=== PATIENT | female | born 1945 | race Caucasian/White ===

== ENCOUNTER → 2018-04-16 10:33 | Outpatient (CLI) | payer MEDICARE, SELFPAY ==
[2018-04-16 12:27] LABS: Anion Gap 11 (5-15); BUN 18 mg/dL (7-18); BUN/Creat Ratio 15.4 RATIO (10-20); Chloride 105 mmol/L (98-107); Creatinine, Serum 1.17 mg/dL (0.55-1.02); EST Glomerular Filtration Rate 48 mL/min (>60); Est Glom Filt Rate - Afr Amer 59 mL/min (>60); Glucose 150 mg/dL (74-106); Potassium 3.7 mmol/L (3.5-5.1); Sodium Level 140 mmol/L (136-145)
[2018-04-16 12:45] LABS: Microalbumin:Creatinine Ratio 8.4 mg/g CRE (<30 mg/g CRE)
== END ==
LOC: MFPLAB 10:35
PROVIDERS: Family Provider Family Medicine; PCP Family Medicine; Visit Provider Family Medicine
DX: E11.9 Type 2 diabetes mellitus without complications (principal)
CPT/HCPCS: 36415; 80048; 82043; 82570

== ENCOUNTER → 2018-10-20 10:12 | Outpatient (CLI) | payer MEDICARE, SELFPAY ==
[2016-11-24 22:39] VITALS: BMI 35.5
[2018-10-20 12:54] LABS: Hemoglobin A1c 7.5 % (4.2-6.3)
[2018-10-20 12:57] LABS: AST(SGOT) 13 U/L (15-37); Alanine Aminotransfer ALT/SGPT 24 U/L (13-56); Albumin, Serum 3.7 g/dL (3.2-5.0); Alkaline Phosphatase 62 U/L (45-117); Anion Gap 7 (5-15); BUN 23 mg/dL (7-18); Bilirubin, Direct 0.13 mg/dL (0.00-0.30); Chloride 102 mmol/L (98-107); Cholesterol 185 mg/dL (200); Creatinine, Serum 1.28 mg/dL (0.55-1.02); EST Glomerular Filtration Rate 44 mL/min (>60); Est Glom Filt Rate - Afr Amer 53 mL/min (>60); Globulin 3.8 g/dL (2.2-4.2); Glucose 155 mg/dL (74-106); High Density Lipoprotein 40 mg/dL; Potassium 4.1 mmol/L (3.5-5.1); Protein, Total 7.5 g/dL (6.4-8.2); Sodium Level 139 mmol/L (136-145); Triglycerides 241 mg/dL; Very Low Density Lipoprotein 48 mg/dL (5-40)
[2018-10-20 13:22] LABS: Microalbumin,Random Urine 8.8 mg/L (NO RANGE EST.); Microalbumin:Creatinine Ratio 5.4 mg/g CRE (<30 mg/g CRE)
== END ==
LOC: MFPLAB 10:14
PROVIDERS: Family Provider Family Medicine; PCP Family Medicine; Visit Provider Family Medicine
DX: E11.9 Type 2 diabetes mellitus without complications (principal); E78.5 Hyperlipidemia, unspecified; I10 Essential (primary) hypertension
CPT/HCPCS: 36415; 80048; 80061; 80076; 82043; 82570; 83036

== ENCOUNTER → 2018-12-25 10:15 | Outpatient (CLI) | payer MEDICARE, SELFPAY ==
--- NOTE | 2018-12-25 10:20 | BI_ITS ---
MAMMOGRAPHY - BILATERAL SCREENING REASON FOR EXAM: Female, 73 years old. Routine annual screening examination. PERTINENT HISTORY: Non-contributory. Remote right stereotactic breast biopsy. TECHNIQUE: Digital bilateral breast juan (3D mammographic acquisition) in the CC and MLO projections. 2-D mediolateral oblique (MLO) and craniocaudad (CC) views of both breasts were obtained. CAD: Full Field Digital Mammography with Computer Added Detection was performed. COMPARISON: Comparison is made with prior examination dated April 26, 2009. FINDINGS: Breast Composition: There are scattered areas of fibroglandular density. There are no dominant masses or suspicious calcifications. Stable appearance of the small bilateral axillary lymph nodes. Stable 6 mm well-defined nodule in the upper lateral portion of the right breast most likely representing a small lymph node. No other significant abnormalities are identified. There has been no significant change since the prior study. BI/SCREENING MAMM (CAD), BILAT IMPRESSION: Stable bilateral screening mammogram. Yearly follow-up mammogram recommended. (A) ASSESSMENT CATEGORY: BIRADS Category 2: Benign. A letter regarding these results will be sent to the patient by the facility within 30 days. Approximately 10% of breast cancers are not detected by mammography. A normal mammogram should not delay biopsy of a clinically suspicious abnormality. [id number] Electronically Signed: Ryan Cifuentes MD at 12:48 EST , Service support ,
== END ==
PROVIDERS: Family Provider Family Medicine; PCP Family Medicine; Referring Provider Family Medicine; Visit Provider Family Medicine
DX: Z12.31 Encounter for screening mammogram for malignant neoplasm of breast (principal)
CPT/HCPCS: 77063; 77067

== ENCOUNTER → 2019-01-15 10:01 | Outpatient (CLI) | payer MEDICARE, SELFPAY ==
[2016-11-24 22:39] VITALS: BMI 35.5
[2019-01-15 12:48] LABS: AST(SGOT) 17 U/L (15-37); Alanine Aminotransfer ALT/SGPT 24 U/L (13-56); Albumin, Serum 3.8 g/dL (3.2-5.0); Alkaline Phosphatase 74 U/L (45-117); Anion Gap 12 (5-15); BUN 25 mg/dL (7-18); BUN/Creat Ratio 17.9 RATIO (10-20); Calcium,Total 9.6 mg/dL (8.5-10.1); Chloride 102 mmol/L (98-107); Cholesterol 181 mg/dL (200); EST Glomerular Filtration Rate 39 mL/min (>60); Est Glom Filt Rate - Afr Amer 48 mL/min (>60); Glucose 176 mg/dL (74-106); High Density Lipoprotein 43 mg/dL; Potassium 3.7 mmol/L (3.5-5.1); Protein, Total 7.8 g/dL (6.4-8.2); Sodium Level 137 mmol/L (136-145); Triglycerides 205 mg/dL; Very Low Density Lipoprotein 41 mg/dL (5-40)
[2019-01-15 12:49] LABS: Hemoglobin A1c 7.7 % (4.2-6.3)
== END ==
LOC: MFPLAB 10:01
PROVIDERS: Nurse Practitioner Family; Family Provider Family Medicine; PCP Family Medicine; Visit Provider Family Medicine
DX: E11.9 Type 2 diabetes mellitus without complications (principal); E78.5 Hyperlipidemia, unspecified
CPT/HCPCS: 36415; 80053; 80061; 83036

== ENCOUNTER → 2019-04-16 10:43 | Outpatient (CLI) | payer MEDICARE, SELFPAY ==
[2016-11-24 22:39] VITALS: BMI 35.5
[2019-04-16 12:36] LABS: Anion Gap 9 (5-15); BUN 25 mg/dL (7-18); BUN/Creat Ratio 17.9 RATIO (10-20); Calcium,Total 9.6 mg/dL (8.5-10.1); Chloride 103 mmol/L (98-107); Cholesterol 195 mg/dL (200); EST Glomerular Filtration Rate 39 mL/min (>60); Est Glom Filt Rate - Afr Amer 47 mL/min (>60); Glucose 167 mg/dL (74-106); High Density Lipoprotein 42 mg/dL; Potassium 4.2 mmol/L (3.5-5.1); Sodium Level 139 mmol/L (136-145); Triglycerides 265 mg/dL; Very Low Density Lipoprotein 53 mg/dL (5-40)
[2019-04-16 12:38] LABS: Hemoglobin A1c 7.9 % (4.2-6.3)
== END ==
LOC: MFPLAB 10:44
PROVIDERS: Family Provider Family Medicine; PCP Family Medicine; Referring Provider Family Medicine; Visit Provider Family Medicine
DX: I10 Essential (primary) hypertension (principal); E11.9 Type 2 diabetes mellitus without complications
CPT/HCPCS: 36415; 80048; 80061; 83036

== ENCOUNTER → 2019-04-24 15:25 | Outpatient (CLI) | payer MEDICARE, SELFPAY ==
[2019-04-24 17:27] LABS: Absolute Lymphocyte Count 2.03 X10^3/ul (0.83-4.51); Absolute Neutrophil Count 3.9 X10^3/uL (2.0-7.7); Basophil# 0.05 X10^3/uL; Basophil% 0.8 % (0-1); Eosinophil# 0.13 X10^3/uL; Hematocrit 38.4 % (37-47); Hemoglobin 12.8 g/dl (12.0-15.0); Lymphocyte # 2.03 X10^3/ul (4.0); Lymphocyte % 30.8 % (19-41); Mean Corp Hgb Conc 33.3 g/gl (32-36); Mean Corpuscular Hgb 28.4 pg (27.0-32.0); Mean Corpuscular Volume 85.3 fL (81-99); Mean Platelet Vol. 12.3 fl (6.2-12.0); Monocyte# 0.46 X10^3/uL; Neutrophil # 3.91 X10^3/uL (2.7-7.7); Neutrophil % 59.2 % (47-70); Platelet Count 262 K/mm3 (150-450); RBC Distribution Width CV 14.1 % (11.6-14.6); RBC Distribution Width SD 44.2 fl (35.1-43.9); White Blood Count 6.6 K/mm3 (4.4-11.0)
[2019-04-24 17:28] LABS: POSITIVE COUNT NO; POSITIVE DIFFERENTIAL NO; POSITIVE MORPHOLOGY NO
[2019-04-24 17:48] LABS: Anion Gap 7 (5-15); BUN 24 mg/dL (7-18); BUN/Creat Ratio 18.9 RATIO (10-20); Calcium,Total 9.5 mg/dL (8.5-10.1); Chloride 103 mmol/L (98-107); Creatinine, Serum 1.27 mg/dL (0.55-1.02); EST Glomerular Filtration Rate 44 mL/min (>60); Est Glom Filt Rate - Afr Amer 53 mL/min (>60); Glucose 126 mg/dL (74-106); Potassium 3.8 mmol/L (3.5-5.1); Sodium Level 137 mmol/L (136-145); Thyroid Stim Hormone (TSH) 1.69 uIU/mL (0.358-3.74)
== END ==
LOC: MFPLAB 15:26
PROVIDERS: Family Provider Family Medicine; PCP Family Medicine; Referring Provider Family Medicine; Visit Provider Family Medicine
DX: R53.83 Other fatigue (principal)
CPT/HCPCS: 36415; 80048; 84443; 85025

== ENCOUNTER 2019-04-27 09:50 | Emergency (ER) | payer MEDICARE, SELFPAY ==
[2019-04-27 09:51] VITALS: BP 163/67; PULSE 68; RESP 19; TEMP 36.3; O2SAT 98; BMI 35.5
[2019-04-27] MEDS: HYDROcodone Bitartrate/Apap 5/325 Tablet PO (10:23)
[2019-04-27] MEDS: Naproxen 500 MG Tablet PO (10:23)
--- NOTE | 2019-04-27 10:25 | RAD_ITS ---
STUDY: X-RAY - RIGHT FOOT CLINICAL: Female, 73 years old. Erythema of the big toe TECHNIQUE: 3 view(s) of the foot. COMPARISON: None. FINDINGS: No fracture or dislocation. The joint spaces are maintained. There is calcaneal enthesopathy. The soft tissue structures are unremarkable. RAD/Foot min 3 Views IMPRESSION: No acute fracture or dislocation. Electronically Signed: Annette Yusuf, at 11:10 EDT Tel , Service support ,
--- NOTE | 2019-04-27 10:33 | ED.DCSUM_ITS ---
- ER Visit Summary Date of Service: 04/27/19 Chief Complaint: [] Right great toe pain this morning History of Present Illness: The patient is a 73 F [] indicates that basically she is been in very good health she woke this morning with pain involving her right great toe the lateral part of the MTP had a small red dot to it she had trouble moving the toe and she comes in for evaluation, she has history of arthritis but no history of gout she had no trauma no fever no cough the rest of her joints are unremarkable Physical Examination: [] Vital signs unremarkable see those reports General, no distress resting comfortably HEENT is generally unremarkable The neck is supple no adenopathy Cardiovascular, regular rate and rhythm Lungs, clear bilateral Abdomen, soft nontender Extremities, no clubbing cyanosis or edema, the right great toe the MTP appears inflamed she cannot really move that toe there is a small red dot to the lateral surface of the right MTP the skin is intact there is some discomfort when you brush the skin there is no signs of active infection cellulitis no signs of any trauma the rest of the toes are unremarkable the foot has a strong dorsalis pedis pulse and the foot is otherwise unremarkable as is the ankle the tib-fib the knee and the rest of her physical exam Neurologic, awake alert answering questions appropriately moving all 4 extremities Test Results: [] Emergency Department Course and Treatment: [] Plan all of the above to the patient I explained the concept of gout arthritis she denies any trauma she has no history of joint infection or skin infections at this time she is treated with nonsteroidals x-rays obtained, explained her the best course of action is keep on the nonsteroidals we discussed walking aids she will try a cane ice elevation the Naprosyn for pain she will follow-up with podiatry in the next few days return for change in symptoms Treatment Plan: [] Disposition: [] Home stable Impression: [] rt MTP pain This note was generated with [employer] dictation software. It may contain incorrect words, spelling, and punctuation that were not noted in review of the chart prior to signing ED Disposition - Plan for ED Patient: Referrals: Rafi Moraes MD [Primary Care Provider] -
--- NOTE | 2019-04-27 10:34 | DCINST.ED_ITS ---
ED Disposition - Plan for ED Patient: Instructions: ED Contusion Lower Ext, ED Arthritis Gout Prescriptions: Hydrocodone Bitart/Apap 5-325 [[place] 5MG-325MG] 1 tab PO Q4H PRN PRN 2 Days #7 tab PRN Reason: Pain Naproxen [Naprosyn] 500 mg PO BID PRN #20 tab Referrals: Rafi Moraes MD [Primary Care Provider] -
--- NOTE | 2019-04-27 10:35 | DCINST.ED_ITS ---
ED Disposition - Plan for ED Patient: Instructions: ED Contusion Lower Ext, ED Arthritis Gout Prescriptions: Hydrocodone Bitart/Apap 5-325 [[place] 5MG-325MG] 1 tab PO Q4H PRN PRN 2 Days #7 tab PRN Reason: Pain Naproxen [Naprosyn] 500 mg PO BID PRN #20 tab Referrals: Rafi Moraes MD [Primary Care Provider] -
--- NOTE | 2019-04-27 10:53 | DCINST.ED_ITS ---
ED Disposition - Plan for ED Patient: Instructions: ED Contusion Lower Ext, ED Arthritis Gout Prescriptions: Hydrocodone Bitart/Apap 5-325 [[place] 5MG-325MG] 1 tab PO Q4H PRN PRN 2 Days #7 tab PRN Reason: Pain Naproxen [Naprosyn] 500 mg PO BID PRN #20 tab Referrals: Rafi Moraes MD [Primary Care Provider] -
--- NOTE | 2019-04-27 10:55 | DCINST.ED_ITS ---
ED Disposition - Plan for ED Patient: Instructions: ED Contusion Lower Ext, ED Arthritis Gout Prescriptions: Hydrocodone Bitart/Apap 5-325 [[place] 5MG-325MG] 1 tab PO Q4H PRN PRN 2 Days #7 tab PRN Reason: Pain Naproxen [Naprosyn] 500 mg PO BID PRN #20 tab Referrals: Rafi Moraes MD [Primary Care Provider] -
[2019-04-27 11:39] VITALS: BP 136/76; PULSE 55; RESP 15
== END 2019-04-27 11:41 | disposition home or self-care (01) ==
PROVIDERS: Emergency Provider Emergency Medicine; Family Provider Family Medicine; PCP Family Medicine
DX: M25.571 Pain in right ankle and joints of right foot (principal)
CPT/HCPCS: 73630; 99283

== ENCOUNTER → 2019-05-01 06:12 | Outpatient (CLI) | payer MEDICARE, SELFPAY ==
[2019-04-27 09:51] VITALS: BMI 35.5
--- NOTE | 2019-05-01 17:16 | STRESSREP ---
Stress Test Report Date: 05-01-19 Procedure: Pharmacologic stress nuclear imaging study Indications: Abnormal ECG; near syncope Consent: Per the patient Procedure: The patient underwent pharmacologic (Regadenoson) evaluation with a peak heart rate of 93 beats per minute (62 %predicted maximal heart rate) and a peak blood pressure of 168/90 mmHg. The baseline ECG demonstrated normal sinus rhythm; nonspecific ST/T wave abnormality. The peak pharmacologic ECG demonstrated no obvious ECG changes. There was an occasional PVC pretest. There was no complaint of chest discomfort during pharmacologic infusion or recovery. The examination was discontinued secondary to completion of protocol. Impression: 1. Pharmacologic (Regadenoson) evaluation 2. Peak pharmacologic ECG with no obvious ECG changes. 3. There was an occasional PVC pretest. 4. Nuclear images pending Myocardial perfusion imaging study: Technique: The patient was injected with 14.6 millicuries of technetium 99m Cardiolite and subsequently rest SPECT Cardiolite nuclear imaging was obtained in the horizontal long, vertical long, and short axis views. The patient underwent pharmacologic (Regadenoson) evaluation with a peak heart rate of 93 beats per minute (62 % percent predicted maximal heart rate) and a peak blood pressure of 168/90 mmHg. The patient was injected with 44.4 millicuries of technetium 99m Cardiolite and subsequently stress SPECT Cardiolite nuclear imaging was obtained in the horizontal long, vertical long, and short axis views. A gated Cardiolite study at peak stress was obtained. Interpretation: Rest and stress SPECT Cardiolite nuclear imaging status post realignment, normalization, and attenuation correction demonstrate relative uniform tracer uptake and myocardial perfusion appearing within normal limits. There is end systolic thickening and brightening. The gated Cardiolite study demonstrates myocardial thickening and inward wall motion. The reported LVEF is 79 %. Impression: 1. Rest and stress SPECT Cardiolite nuclear imaging demonstrate relative uniform tracer uptake and myocardial perfusion appearing within normal limits. 2. The gated Cardiolite study reports an LVEF of 79 %. This note was generated with [employer] software. It may contain incorrect words, spelling, and punctuation that were not noted in checking the note before signing.
== END ==
PROVIDERS: Family Provider Family Medicine; PCP Family Medicine; Referring Provider Family Medicine; Visit Provider Family Medicine
DX: R94.31 Abnormal electrocardiogram [ECG] [EKG] (principal)
CPT/HCPCS: 78452; 93017; A9500; A4216; J2785

== ENCOUNTER → 2020-01-29 10:43 | Outpatient (CLI) | payer MEDICARE, SELFPAY ==
[2020-01-29 13:12] LABS: Anion Gap 11 (5-15); BUN 26 mg/dL (7-18); BUN/Creat Ratio 18.7 RATIO (10-20); Calcium,Total 9.2 mg/dL (8.5-10.1); Chloride 103 mmol/L (98-107); Cholesterol 209 mg/dL (200); Creatinine, Serum 1.39 mg/dL (0.55-1.02); EST Glomerular Filtration Rate 39 mL/min (>60); Est Glom Filt Rate - Afr Amer 48 mL/min (>60); Glucose 170 mg/dL (74-106); High Density Lipoprotein 41 mg/dL; Potassium 3.5 mmol/L (3.5-5.1); Sodium Level 139 mmol/L (136-145); Triglycerides 287 mg/dL; Very Low Density Lipoprotein 57 mg/dL (5-40)
== END ==
LOC: MFPLAB 10:45
PROVIDERS: PCP Family Medicine; Visit Provider Family Medicine
DX: I10 Essential (primary) hypertension (principal)
CPT/HCPCS: 36415; 80048; 80061

== ENCOUNTER → 2020-05-06 15:35 | Outpatient (CLI) | payer MEDICARE, SELFPAY ==
--- NOTE | 2020-05-06 15:38 | RAD_ITS ---
STUDY: X-RAY - LEFT SHOULDER REASON FOR EXAM: Female, 74 years old. left shoulder pain TECHNIQUE: 4 view(s) of the shoulder. COMPARISON: None. FINDINGS: There is mild degenerative arthrosis of the glenohumeral articulation. Mild degenerative changes of the acromioclavicular joint. Normal acromion. Normal humeral head and visualized proximal humerus. The soft tissue structures are unremarkable. Normal visualized pulmonary apex. RAD/Shoulder min 2 Views IMPRESSION: Normally located shoulder without fracture, osteolytic or blastic bone lesion. Mild degenerative changes of the glenohumeral joint and AC joint appropriate for age. Electronically Signed: Diamond Emerson MD at 16:13 EDT , Service support ,
== END ==
LOC: MTRAD 15:37
PROVIDERS: PCP Family Medicine; Referring Provider Family Medicine; Visit Provider Family Medicine
DX: M25.512 Pain in left shoulder (principal)
CPT/HCPCS: 73030

== ENCOUNTER → 2020-05-09 09:43 | Outpatient (CLI) | payer MEDICARE, SELFPAY ==
[2020-05-09 12:46] LABS: Anion Gap 10 (5-15); BUN 31 mg/dL (7-18); BUN/Creat Ratio 19.9 RATIO (10-20); Calcium,Total 9.4 mg/dL (8.5-10.1); Chloride 101 mmol/L (98-107); Cholesterol 204 mg/dL (200); Creatinine, Serum 1.56 mg/dL (0.55-1.02); EST Glomerular Filtration Rate 35 mL/min (>60); Est Glom Filt Rate - Afr Amer 42 mL/min (>60); Glucose 194 mg/dL (74-106); High Density Lipoprotein 37 mg/dL; Potassium 3.5 mmol/L (3.5-5.1); Sodium Level 138 mmol/L (136-145); Triglycerides 290 mg/dL
[2020-05-09 12:47] LABS: Very Low Density Lipoprotein 58 mg/dL (5-40)
== END ==
LOC: MFPLAB 09:43
PROVIDERS: PCP Family Medicine; Visit Provider Family Medicine
DX: I10 Essential (primary) hypertension (principal)
CPT/HCPCS: 36415; 80048; 80061

== ENCOUNTER → 2020-05-10 15:02 | Outpatient (CLI) | payer MEDICARE, SELFPAY ==
--- NOTE | 2020-05-10 15:05 | BI_ITS ---
MAMMOGRAPHY - BILATERAL SCREENING REASON FOR EXAM: Female, 74 years old. Routine annual screening examination. PERTINENT HISTORY: Aunt with breast cancer. TECHNIQUE: Digital bilateral breast louie (3D mammographic acquisition) in the CC and MLO projections. 2-D mediolateral oblique (MLO) and craniocaudad (CC) views of both breasts were obtained. CAD: Full Field Digital Mammography with Computer Added Detection was performed. COMPARISON: Comparison is made with prior study dated December 25, 2018. FINDINGS: Breast Composition: There are scattered areas of fibroglandular density. Since prior study, there has been an increase in the calcifications in the deep upper lateral portion of the left breast. The patient will be recalled for additional views including magnification spot views. No other significant abnormalities are identified. BI/SCREEN MAMM (CAD) W/LOUIE BILAT IMPRESSION: Increased focal area of calcification in the deep upper lateral portion of the left breast as described. The patient will be recalled for additional views. Recall Side: Left Breast ASSESSMENT CATEGORY: BIRADS Category 0: Incomplete. Need additional imaging evaluation. A letter regarding these results will be sent to the patient by the facility within 30 days. Approximately 10% of breast cancers are not detected by mammography. A normal mammogram should not delay biopsy of a clinically suspicious abnormality. [id number] Electronically Signed: Ryan Cifuentes, at 8:27 EDT , Service support ,
--- NOTE | 2020-05-10 15:08 | BD_ITS ---
STUDY: DUAL ENERGY X-RAY ABSORPTIOMETRY / DXA REASON FOR EXAM: Female, 74 years old. [employer]AD[employer]ATE- SURGICAL EARLY AT 30 YRS OLD -- HX OF HRT -- TYPE 2 DIABETIC- TAKES MEDS -- HX OF SMOKING- QUIT 37 YRS AGO -- TAKES DIURETIC -- DOES LITTLE EXERCISE -- FAMILY HX OF OSTEO- SISTER -- GONSALO OF 1.5 INCHES TECHNIQUE: Bone Mineral Density (BMD) measurements of lumbar spine and bilateral hips were obtained. COMPARISON: None. FINDINGS: Lumbar Spine (L1-L4): g/cm2 (1.169) / T-score (0.0) / Z-score (1.7) Findings are suggestive of normal bone density with a low fracture risk. Left Femur Total: g/cm2 (1.108) / T-score (0.8) / Z-score (2.5) Left Femoral Neck: g/cm2 (1.145) / T-score (0.8) / Z-score (2.6) Right Femur Total: g/cm2 (1.086) / T-score (0.6) / Z-score (2.3) Right Femoral Neck: g/cm2 (1.144) / T-score (0.8) / Z-score (2.6) BD/Dexa Bone Density Study IMPRESSION: The patient is considered normal as outlined below according to World Luk[employer] Organization (WHO) criteria with a low fracture risk. Reference Information: The T-score is the number of standard deviations above or below the standard which is normal for young adults at their peak bone mineral density. The World Health Organization (WHO) interprets the T-scores as follows: Above -1 Normal bone density Between -1 and -2.5 Osteopenia Equal to / or below -2.5 Osteoporosis As a practical clinical guideline, osteopenia may be graded as follows: Mild -1 through -1.5 Moderate -1.6 through -2.0 Severe -2.1 through -2.4 The Z-score is the number of standard deviations above or below age-matched controls. A Z-score of less than -1.5 would be considered abnormal. References: 1. NIH Osteoporosis and Related Bone Diseases http://www.osteo.org 2. International Society for Clinical Densitometry http://www.iscd.org 3. National Osteoporosis Foundation http://www.nof.org Electronically Signed: Ryan Cifuentes, at 9:23 EDT , Service support ,
== END ==
PROVIDERS: PCP Family Medicine; Referring Provider Family Medicine; Visit Provider Family Medicine
DX: Z00.00 Encounter for general adult medical examination without abnormal findings (principal); Z12.31 Encounter for screening mammogram for malignant neoplasm of breast; Z78.0 Asymptomatic menopausal state
CPT/HCPCS: 77063; 77067; 77080

== ENCOUNTER → 2020-05-13 09:53 | Outpatient (CLI) | payer MEDICARE, SELFPAY ==
--- NOTE | 2020-05-13 09:55 | BI_ITS ---
MAMMOGRAPHY - UNILATERAL DIAGNOSTIC: LEFT BREAST REASON FOR EXAM: Female, 74 years old. Abnormal screening mammogram. PERTINENT HISTORY: Aunt with breast cancer. TECHNIQUE: Digital unilateral breast juan (3D mammographic acquisition) in the CC and MLO projections. 2-D mediolateral oblique (MLO) and craniocaudad (CC) views of both breasts were obtained. CAD: Full Field Digital Mammography with Computer Added Detection was performed. COMPARISON: Comparison is made with prior study dated May 10, 2020. FINDINGS: Breast Composition: The breasts are almost entirely fatty. A cluster microcalcification is once again seen in the deep upper lateral portion of the breast. A biopsy is recommended for further evaluation. No other significant abnormalities are identified. BI/DIAG MAMM W/CAD, UNILAT IMPRESSION: Cluster microcalcification once again seen in the deep upper lateral portion of the left breast as described. A biopsy is recommended for further evaluation. ASSESSMENT CATEGORY: BIRADS Category 4: Suspicious - Biopsy Should Be Considered. A letter regarding these results will be sent to the patient by the facility within 30 days. Approximately 10% of breast cancers are not detected by mammography. A normal mammogram should not delay biopsy of a clinically suspicious abnormality. Electronically Signed: Ryan Cifuentes, at 11:05 EDT , Service support ,
== END ==
LOC: OPBI 09:54
PROVIDERS: PCP Family Medicine; Referring Provider Family Medicine; Visit Provider Family Medicine
DX: R92.8 Other abnormal and inconclusive findings on diagnostic imaging of breast (principal)
CPT/HCPCS: 77065

== ENCOUNTER → 2020-05-19 10:14 | Outpatient (CLI) | payer MEDICARE, SELFPAY ==
[2020-05-18 13:14] VITALS: BMI 35.5
--- NOTE | 2020-05-19 | BRBX_PTH ---
PATIENT: CECY WILLAMS LOC: [facility] U#:[id number] AGE/SX: 80/F ROOM: RE05/19/[address]: Dr. Anitha Velarde MD : 1945 BED: DIS: SPEC #: [id number] RECD: 05/19/20 13:29 STATUS: TOÑO KENNY #: [id number] ROSARIO: 05/19/20 00:[address]: Anitha Velarde DEPT: SURGICAL PATHOLOGY RECD BY: Vel Sanders ENTERED: 05/19/20 13:30 SP TYPE: BREAST BX OTHR DR: Dr. Rafi Moraes MD Tissues: Left breast, NOS Procedures: Surgery Specimen Level IV HEADER OPERATION: Left stereotactic breast biopsy PRE-OP DIAGNOSIS: Cluster microcalcifications deep upper lateral portion left breast TISSUE SUBMITTED: Left breast core tissue ISCHEMIC TIME: 1 minute FIXATION TIME: 7 hours MICROSCOPIC DIAGNOSIS Left breast, cluster microcalcification deep upper lateral portion, stereotactic core biopsy: Hyalinized fibroadenoma with frequent microcalcifications. Negative for atypia or malignancy. See comment. HENOK:fatimah 05/20/20 COMMENT Correlation with clinical, radiologic findings and appropriate follow up are necessary. MICROSCOPIC DESCRIPTION Slides are reviewed. GROSS DESCRIPTION Received is one container labeled with the patient's name and not further designated. The specimen consists of multiple elongated fragments of savage-yellow fibroadipose tissue that in aggregate measure 2.5 x 3 x 0.3 cm. The entire specimen is submitted in two cassettes. / HENOK:fatimah 05/19/20 TC:1 CPT: 01576
--- NOTE | 2020-05-19 11:39 | OP.PCM_ITS ---
Report of Operation Date of Procedure: 05/19/20 Pre-Operative Diagnosis: Left breast microcalcifications Post-Operative Diagnosis: Same Surgery/Procedure Performed:: Stereotactic guided left breast core biopsy Type of Anesthesia:: Local Specimen's removed: Left breast microcalcification Estimated Blood Loss (mL): Minimal Description of Procedure: Procedure: Left stereotactic core biopsy Indications: 74 year-old female with microcalcifications in the deep lateral of the left breast. Risk benefits were discussed the patient and she elected to proceed with stereotactic core biopsy with clip placement Description of procedure: Patient was brought into the mammography suite and laid prone on the stereotactic table. A timeout was completed verifying correct patient, procedure, site, specially, prior to beginning procedure. The left breast was prepped and draped in usual sterile fashion and using local anesthesia was obtained with 1% lidocaine with epi. Patient's left breast was positioned and placed into compression from the lateral aspect. Initial film showed calcifications are in the center of the compression paddle. 15? views were then taken. The calcifications were localized. The left breast was prepped draped in usual sterile fashion. An 8-gauge mammotome was set up according to the digital coordinates. The tract of the mammotome was ane sthetized with local anesthesia and an incision was made with the 11 blade scalpel at the entry site. The mammotome was advanced to the prefire state. Pre-prior films were checked and verified. The mammotome was fired. Post fire films were also checked and verified. Biopsies were taken from 9:00 to 2:00. The specimen was x-rayed and all the calcifications were within the specimen. Mammotome revolve clip was placed at the 12 o'clock position. The mammotome was removed from the breast. An additional films were taken which showed almost all of the calcifications were removed and a clip was in place. Pressure was held for hemostasis. Once hemostasis was assured the wound was dressed with Steri- Strips and OpSite. The patient tolerated the procedure well and was discharged from the mammography suite good condition. complications: none - Complications none
== END ==
LOC: BIRAD 10:15
PROVIDERS: PCP Family Medicine; Referring Provider Surgery; Visit Provider Surgery
DX: R92.0 Mammographic microcalcification found on diagnostic imaging of breast (principal)
CPT/HCPCS: 19081; 88305; J7050; A4648

== ENCOUNTER → 2020-08-17 11:49 | Outpatient (CLI) | payer MEDICARE, SELFPAY ==
[2020-05-18 13:14] VITALS: BMI 35.5
[2020-08-17 16:54] LABS: Anion Gap 9 (5-15); BUN 36 mg/dL (7-18); BUN/Creat Ratio 21.1 RATIO (10-20); Calcium,Total 9.7 mg/dL (8.5-10.1); Chloride 101 mmol/L (98-107); Cholesterol 247 mg/dL (200); Creatinine, Serum 1.71 mg/dL (0.55-1.02); EST Glomerular Filtration Rate 31 mL/min (>60); Est Glom Filt Rate - Afr Amer 38 mL/min (>60); Glucose 182 mg/dL (74-106); High Density Lipoprotein 38 mg/dL; Potassium 3.6 mmol/L (3.5-5.1); Sodium Level 136 mmol/L (136-145); Triglycerides 332 mg/dL; Very Low Density Lipoprotein 66 mg/dL (5-40)
[2020-08-17 18:25] LABS: Hemoglobin A1c 7.9 % (3.8-5.6)
== END ==
LOC: MFPLAB 11:51
PROVIDERS: PCP Family Medicine; Referring Provider Family Medicine; Visit Provider Family Medicine
DX: N28.9 Disorder of kidney and ureter, unspecified (principal); I10 Essential (primary) hypertension; E11.9 Type 2 diabetes mellitus without complications
CPT/HCPCS: 36415; 80048; 80061; 83036

== ENCOUNTER → 2020-12-06 16:31 | Outpatient (CLI) | payer MEDICARE, SELFPAY ==
[2020-05-18 13:14] VITALS: BMI 35.5
== END ==
PROVIDERS: PCP Family Medicine; Visit Provider Family Medicine
DX: N39.0 Urinary tract infection, site not specified (principal)
CPT/HCPCS: 87086; 87088

== ENCOUNTER → 2021-02-15 11:54 | Outpatient (CLI) | payer MEDICARE, SELFPAY ==
[2020-05-18 13:14] VITALS: BMI 35.5
[2021-02-15 15:43] LABS: Anion Gap 9 (5-15); BUN 35 mg/dL (7-18); BUN/Creat Ratio 21.9 RATIO (10-20); Calcium,Total 9.4 mg/dL (8.5-10.1); Chloride 103 mmol/L (98-107); Cholesterol 163 mg/dL (200); EST Glomerular Filtration Rate 33 mL/min (>60); Est Glom Filt Rate - Afr Amer 40 mL/min (>60); Glucose 164 mg/dL (74-106); High Density Lipoprotein 39 mg/dL; Potassium 3.6 mmol/L (3.5-5.1); Sodium Level 138 mmol/L (136-145); Triglycerides 242 mg/dL; Very Low Density Lipoprotein 48 mg/dL (5-40)
[2021-02-15 15:48] LABS: Microalbumin,Random Urine 9.4 mg/L (NO RANGE EST.); Microalbumin:Creatinine Ratio 7.4 mg/g CRE (<30 mg/g CRE)
[2021-02-15 16:18] LABS: Hepatitis C Antibody Non-Reactive (Nonreactive)
== END ==
LOC: MFPLAB 11:55
PROVIDERS: PCP Family Medicine; Referring Provider Family Medicine; Visit Provider Family Medicine
DX: E11.9 Type 2 diabetes mellitus without complications (principal); Z53.20 Procedure and treatment not carried out because of patient's decision for unspecified reasons
CPT/HCPCS: 36415; 80048; 80061; 82043; 82570; 86803

== ENCOUNTER → 2021-08-17 09:51 | Outpatient (CLI) | payer MEDICARE, SELFPAY ==
[2021-08-17 12:44] LABS: Anion Gap 10 (5-15); BUN 28 mg/dL (7-18); BUN/Creat Ratio 19.2 RATIO (10-20); Calcium,Total 9.4 mg/dL (8.5-10.1); Chloride 102 mmol/L (98-107); Cholesterol 195 mg/dL (200); Creatinine, Serum 1.46 mg/dL (0.55-1.02); EST Glomerular Filtration Rate 37 mL/min (>60); Est Glom Filt Rate - Afr Amer 45 mL/min (>60); Glucose 181 mg/dL (74-106); High Density Lipoprotein 40 mg/dL; Potassium 3.4 mmol/L (3.5-5.1); Sodium Level 136 mmol/L (136-145); Triglycerides 297 mg/dL; Very Low Density Lipoprotein 59 mg/dL (5-40)
== END ==
LOC: MFPLAB 09:57
PROVIDERS: PCP Family Medicine; Referring Provider Family Medicine; Visit Provider Family Medicine
DX: E11.9 Type 2 diabetes mellitus without complications (principal)
CPT/HCPCS: 36415; 80048; 80061

== ENCOUNTER → 2021-11-16 10:40 | Outpatient (CLI) | payer MEDICARE, SELFPAY ==
[2021-11-16 12:47] LABS: Anion Gap 9 (5-15); BUN 36 mg/dL (7-18); BUN/Creat Ratio 23.2 RATIO (10-20); Calcium,Total 9.8 mg/dL (8.5-10.1); Chloride 103 mmol/L (98-107); Cholesterol 284 mg/dL (200); Creatinine, Serum 1.55 mg/dL (0.55-1.02); EST Glomerular Filtration Rate 35 mL/min (>60); Est Glom Filt Rate - Afr Amer 42 mL/min (>60); Glucose 186 mg/dL (74-106); High Density Lipoprotein 37 mg/dL; Potassium 3.7 mmol/L (3.5-5.1); Sodium Level 137 mmol/L (136-145); Triglycerides 325 mg/dL; Very Low Density Lipoprotein 65 mg/dL (5-40)
== END ==
LOC: MFPLAB 10:41
PROVIDERS: PCP Family Medicine; Referring Provider Family Medicine; Visit Provider Family Medicine
DX: I10 Essential (primary) hypertension (principal)
CPT/HCPCS: 36415; 80048; 80061

== ENCOUNTER 2022-01-07 11:03 | Emergency (ER) | payer MEDICARE, SELFPAY ==
[2022-01-07 11:04] VITALS: BP 119/71; PULSE 74; RESP 17; TEMP 36.1; O2SAT 96; BMI 33.2
--- NOTE | 2022-01-07 11:21 | EX.ED.DYSGE1 ---
HPI History of Present Illness Chief Complaint: Complaint Informant: patient Onset/Context/Timing Onset: Today Current Severity: Moderate Maximum Severity: Moderate Narrative Narrative: Patient presents with what she believes is a UTI. Patient states she gets recurrent UTIs. This morning she woke up and has pain at the end of her urine stream and urine is bloody. She denies back pain. [facility] Medical History Allergic rhinitis Benign essential HTN DM2 (diabetes mellitus, type 2) Home Medications aspirin 81 mg PO DAILY 11/24/16 [History Last Taken Unknown] atorvastatin 10 mg PO QODAY 11/24/16 [History Last Taken Unknown] metoprolol succinate 100 mg PO DAILY 11/24/16 [History Last Taken Unknown] chlorthalidone 25 mg tablet 25 mg PO DAILY 05/18/20 [History Last Taken Unknown] empagliflozin 10 mg tablet 10 mg PO DAILY 05/18/20 [History Last Taken Unknown] meclizine 12.5 mg tablet 12.5 mg PO TID 05/18/20 [History Last Taken Unknown] nebivolol 20 mg tablet 20 mg PO DAILY 05/18/20 [History Last Taken Unknown] sertraline 100 mg tablet 100 mg PO DAILY 05/18/20 [History Last Taken Unknown] sulfamethoxazole-trimethoprim [Bactrim DS] 1 tab PO BID #6 tab 01/07/22 [Rx Last Taken Unknown] Allergy/AdvReac Type Severity Reaction Status Date / Time lisinopril Allergy Shortness Verified 01/07/22 11:04 of breath nitrofurantoin Allergy Other Verified 01/07/22 11:04 [From Macrodantin] prednisolone Allergy Other Verified 01/07/22 11:04 Family History Father Asthma Sister Asthma Surgical History S/P D&C (status post dilation and curettage) S/P hysterectomy S/P laparoscopic cholecystectomy S/P right breast biopsy Social History Smoking Status: Former smoker alcohol intake: never ROS ROS ED Constitutional Constitutional ED: Denies chills or fever(s) Eyes Eyes: Denies change in vision ENT ENT ED: Denies sore throat Cardiovascular Cardiovascular: Denies chest pain Respiratory/Chest Respiratory/Chest: Denies cough or dyspnea Gastrointestinal Gastrointestinal: Reports abdominal pain; Denies diarrhea, nausea or vomiting Genitourinary Genitourinary ED: Reports dysuria and hematuria Musculoskeletal Musculoskeletal: Denies back pain Integumentary Denies rash Neurologic Neurologic: Denies headache(s) or weakness Allergic/Immunologic Allergic/Immunologic ED: Denies urticaria EXAM Physical Exam Const Vital Signs: 01/07/22 11:04 Temperature 96.9 F L Temperature Source Temporal Pulse Rate 74 Respiratory Rate 17 Blood Pressure 119/71 Blood Pressure Mean 87 Pulse Ox 96 Oxygen Delivery Method Room Air Positive well nourished and well developed General Appearance ED: well developed HEENT Reports moist mucous membranes Eyes PERRL and EOMs intact bilaterally Neck supple Chest Wall inspection of chest normal and palpation of chest normal Resp normal respiratory effort and clear to auscultation bilaterally Cardio regular rate and regular rhythm GI non-tender Auscultation: hypoactive bowel sounds Palpation: soft Back/Spine no CVA tenderness Extremity normal to inspection Neuro oriented x3 Sensorium / Orientation: alert Psych mental status grossly normal Skin no rashes or lesions noted MDM MDM MDM Narrative Medical decision making narrative: Urine sent for UAC and urine culture. Lab Data Attestation: I reviewed the patient's lab results. Labs: Laboratory Results - last 24 hr 01/07/22 11:26 Urine Color Brown Urine Clarity Turbid Urine pH 5.0 Ur Specific [place] 1.015 Urine Protein 100 H Urine Glucose (UA) 1000 H Urine Ketones Negative Urine Occult Blood 250 H Urine Nitrite Negative Urine Bilirubin Negative Urine Urobilinogen Normal Ur Leukocyte Esterase 500 H Urine RBC > 100 SEEN Urine WBC >100 SEEN Ur Squamous Epith Cells 0 SEEN Urine Bacteria 0 SEEN Urine Mucus 0 SEEN Treatment and Re-Evaluation Comments:: At this time urinalysis shows RBCs and WBCs. No bacteria is noted at this time. We did discuss the possibility of a small kidney stone causing her symptoms. At this time she is not having significant pain. We also discussed the possibility of early infection where the bacterial count has not climbed enough to be detected on her UAC. We will treat her with 3 days of Bactrim and monitor the urine culture. If patient's symptoms worsen she will return for repeat evaluation. She is comfortable with this plan. Discharge Plan Triage Chief Complaint: Complaint ED Provider: Abigail Kellogg Dx/Rx/DC Orders Clinical Impression: Cystitis Instructions: ED CYSTITIS Female Adult Prescriptions: New sulfamethoxazole-trimethoprim [Bactrim DS] 800-160 mg tablet 1 tab PO BID Qty: 6 RF: 0 No Action sertraline 100 mg tablet 100 mg PO DAILY RF: 0 Bystolic 20 mg tablet 20 mg PO DAILY RF: 0 chlorthalidone 25 mg tablet 25 mg PO DAILY RF: 0 Jardiance 10 mg tablet 10 mg PO DAILY RF: 0 meclizine 12.5 mg tablet 12.5 mg PO TID RF: 0 atorvastatin 10 MG tablet 10 mg PO QODAY RF: 0 metoprolol succinate 100 MG tablet extended release 24 hr 100 mg PO DAILY RF: 0 aspirin 81 MG tablet,delayed release (DR/EC) 81 mg PO DAILY RF: 0 Primary Care Provider: Rafi Moraes Referrals: Rafi Moraes MD [Primary Care Provider] - 3-5 Days if not improving Disposition Disposition: Home, Self Care
[2022-01-07 11:47] LABS: Bacteria 0 SEEN /hpf (None Seen); Mucous, Urine 0 SEEN /hpf (<or=2+); Squamous Epithelial Cells - UA 0 SEEN /hpf (5-10)
[2022-01-07 11:53] LABS: Color, Urine Brown (Yellow); Glucose, Dipstick 1000 mg/dl (Normal); Ketone-Dipstick Negative (Negative); Leukocyte Esterase-Dipstick 500 /ul (Negative); Nitrite-Dipstick Negative (Negative); Occult Blood-Urine 250 /ul (Negative); Protein-Dipstick 100 mg/dl (Negative); Specific Gravity, Urine 1.015 (1.002-1.030); Urine Bilirubin Dipstick Negative (Negative); Urine Clarity Turbid (Clear); Urine Urobilinogen Normal (Normal)
[2022-01-07 12:00] LABS: Red Blood Cells-Urine > 100 SEEN /hpf (0-5); White Blood Cells >100 SEEN /hpf (0-5)
[2022-01-07] MEDS: Smz/Tmp Ds Tablet 1 TABLET PO (12:13)
[2022-01-07 12:15] VITALS: RESP 16
== END 2022-01-07 12:16 | disposition home or self-care (01) ==
PROVIDERS: Emergency Provider Emergency Medicine; PCP Family Medicine; Visit Provider Emergency Medicine
DX: N30.91 Cystitis, unspecified with hematuria (principal); E11.9 Type 2 diabetes mellitus without complications; I10 Essential (primary) hypertension; Z87.891 Personal history of nicotine dependence; Z79.899 Other long term (current) drug therapy; Z79.84 Long term (current) use of oral hypoglycemic drugs
CPT/HCPCS: 81001; 87086; 87088; 99283

== ENCOUNTER 2022-02-12 10:58 | Outpatient (CLI) | payer MEDICARE, SELFPAY ==
[2022-02-12 12:27] LABS: Anion Gap 8 (5-15); BUN 26 mg/dL (7-18); BUN/Creat Ratio 16.7 RATIO (10-20); Calcium,Total 9.7 mg/dL (8.5-10.1); Chloride 105 mmol/L (98-107); Cholesterol 142 mg/dL (200); Creatinine, Serum 1.56 mg/dL (0.55-1.02); EST Glomerular Filtration Rate 34 mL/min (>60); Est Glom Filt Rate - Afr Amer 42 mL/min (>60); Glucose 148 mg/dL (74-106); High Density Lipoprotein 39 mg/dL; Potassium 3.5 mmol/L (3.5-5.1); Sodium Level 138 mmol/L (136-145); Triglycerides 184 mg/dL; Uric Acid 6.8 mg/dL (2.6-6.0); Very Low Density Lipoprotein 37 mg/dL (5-40)
== END 2022-02-12 23:59 | disposition home or self-care (01) ==
LOC: MFPLAB 10:58
PROVIDERS: PCP Family Medicine; Visit Provider Family Medicine
DX: I10 Essential (primary) hypertension (principal); M10.9 Gout, unspecified
CPT/HCPCS: 36415; 80048; 80061; 84550

== ENCOUNTER 2022-07-21 19:43 | Emergency (ER) | payer MEDICARE, SELFPAY ==
[2022-07-21 19:43] VITALS: BP 178/91; PULSE 73; RESP 17; TEMP 36.1; O2SAT 97; BMI 36.3
--- NOTE | 2022-07-21 20:00 | EDS_ITS ---
HPI HPI - Female History of Present Illness Chief Complaint: Complaint Detail of Chief Complaint: Dysuria that started around 4 PM Informant: patient Narrative Narrative: Patient presents the emergency department with complaint of dysuria that started around 4 PM. Patient states she gets frequent urinary tract infections. Patient states she was seen in the ER about 2 months ago for hematuria but no signs of infection were found at that time. Patient also has a bladder leak problem. She complains of burning at the end of urination to the area of the urethra. She denies any fevers. She is had no vomiting. Prior similar symptoms: Yes PFSH PFS Medical History Allergic rhinitis Benign essential HTN DM2 (diabetes mellitus, type 2) Home Medications aspirin 81 mg tablet,delayed release 81 mg PO DAILY 11/24/16 [History Last Taken Unknown] atorvastatin 10 mg tablet 40 mg PO DAILY 11/24/16 [History Last Taken Unknown] chlorthalidone 25 mg tablet 25 mg PO DAILY 05/18/20 [History Last Taken Unknown] meclizine 12.5 mg tablet 12.5 mg PO TID PRN PRN Dizziness 05/18/20 [History Last Taken Unknown] nebivolol 20 mg tablet (Bystolic) 20 mg PO DAILY 05/18/20 [History Last Taken Unknown] sertraline 100 mg tablet 100 mg PO DAILY 05/18/20 [History Last Taken Unknown] allopurinol 100 mg tablet 100 mg PO DAILY 07/21/22 [History Last Taken Unknown] glimepiride 2 mg tablet 2 mg PO DAILY 07/21/22 [History Last Taken Unknown] losartan 100 mg tablet 100 mg PO DAILY 07/21/22 [History Last Taken Unknown] phenazopyridine 200 mg tablet (Pyridium) 200 mg PO TID #10 tabs 07/21/22 [Rx Last Taken Unknown] sulfamethoxazole 800 mg-trimethoprim 160 mg tablet 1 tab PO BID #6 TABLETS 07/21/22 [Rx Last Taken Unknown] Allergy/AdvReac Type Severity Reaction Status Date / Time lisinopril Allergy Shortness Verified 07/21/22 19:46 of breath nickel Allergy Rash Verified 07/21/22 19:46 nitrofurantoin Allergy Other Verified 07/21/22 19:46 [From Macrodantin] prednisolone Allergy Other Verified 07/21/22 19:46 Family History Father Asthma Sister Asthma Surgical History S/P D&C (status post dilation and curettage) S/P hysterectomy S/P laparoscopic cholecystectomy S/P right breast biopsy Social History Smoking Status: Former smoker alcohol intake: never ROS ROS ED Review of Systems ROS Unobtainable: other Constitutional Constitutional ED: Reports lethargy; Denies chills, fever(s), sweats or weight loss Eyes Eyes: Denies blurry vision, change in vision or diplopia ENT ENT ED: Denies rhinorrhea or sore throat Cardiovascular Cardiovascular: Reports chest pain and racing heartbeat; Denies orthopnea Respiratory/Chest Respiratory/Chest: Reports dyspnea and dyspnea on exertion; Denies cough, orthopnea or sputum Gastrointestinal Gastrointestinal: Denies abdominal pain, diarrhea, nausea or vomiting Genitourinary Genitourinary ED: Reports dysuria and urinary frequency; Denies hematuria Musculoskeletal Musculoskeletal: Denies arthralgias, back pain, myalgias or neck pain Integumentary Denies abscess, Abrasions or rash Neurologic Neurologic: Denies headache(s) or weakness Psychiatric Psychiatric: Denies anxiety, depression or suicidal thoughts Endocrine Endocrinology: Denies polydipsia, polyphagia or polyuria Hematologic/Lymphatic Hematologic/Lymphatic: Denies easy bleeding, easy bruising or lymphadenopathy Allergic/Immunologic Allergic/Immunologic ED: Denies mouth swelling, tongue swelling or urticaria EXAM Physical Exam Const Vital Signs: 07/21/22 19:43 Temperature 96.9 F L Temperature Source Temporal Pulse Rate 73 Respiratory Rate 17 Blood Pressure 178/91 H Blood Pressure Mean 120 Pulse Ox 97 Oxygen Delivery Method Room Air Positive well nourished and well developed General Appearance ED: well developed and NAD HEENT Reports TM's clear and moist mucous membranes normocephalic and atraumatic; Negative for trauma or tenderness Tympanic Membrane ED: Yes TM's clear Eyes PERRL and EOMs intact bilaterally General Eye ED: Negative for pale conjunctiva or scleral icterus Neck no lymphadenopathy, supple and no JVD General: Negative for tenderness Chest Wall inspection of chest normal and palpation of chest normal Chest: Negative for tenderness Resp normal respiratory effort and clear to auscultation bilaterally Effort and Inspection: Negative for respiratory distress or pain with movement Auscultation: Negative for rhonchi, wheezes or diminished lung sounds Cardio regular rate, regular rhythm, S1 normal heart sound, S2 normal heart sound and no murmurs Peripheral Pulses: pulses 2+ throughout GI normal to inspection, nondistended, normoactive bowel sounds, soft to palpation, non-tender, non-distended and no masses Back/Spine no CVA tenderness and no thoracic nor lumbar tenderness Extremity normal to inspection General Extremety ED: Negative for edema General Extremity: Negative for edema Neuro oriented x3, CN's II-XII intact bilaterally, no sensory deficits noted and gait normal Sensorium / Orientation: awake, alert, oriented to person, oriented to place and oriented to time Motor Exam: strength 5/5 throughout and strength abnormal Psych mental status grossly normal Skin no rashes or lesions noted and no wounds MDM MDM MDM Narrative Medical decision making narrative: Urinalysis that showed 500 leukocyte Estrace as well as 10-25 WBCs but no bacteria. Urine culture was sent. Given her symptomatology patient will be treated with Bactrim and Pyridium. She is advised to follow-up with her primary care physician in 3 to 5 days for culture results and repeat evaluation. Patient advised to return if fever, worsening pain, or condition should worsen anyway. She did have a bladder scan performed here as well and she only had 50 cc of urine in her bladder. I do not believe she is having retention. Lab Data Attestation: I reviewed the patient's lab results. Labs: Laboratory Results - last 24 hr 07/21/22 20:56 Urine Color Yellow Urine Clarity Sl. Cloudy Urine pH 5.0 Ur Specific [place] 1.020 Urine Protein 15 H Urine Glucose (UA) Normal Urine Ketones Negative Urine Occult Blood 10 H Urine Nitrite Negative Urine Bilirubin Negative Urine Urobilinogen Normal Ur Leukocyte Esterase 500 H Urine RBC 0-5 SEEN Urine WBC 10-25 SEEN Ur Squamous Epith Cells 0-5 SEEN Urine Bacteria 0 SEEN Urine Mucus 0 SEEN Discharge Plan Triage Chief Complaint: Complaint ED Provider: Ha Krause Dx/Rx/DC Orders Clinical Impression: Acute UTI Instructions: ED Cystitis Female Adult Prescriptions: New phenazopyridine [Pyridium] 200 mg tablet 200 mg PO TID Qty: 10 0RF sulfamethoxazole-trimethoprim [sulfamethoxazole-trimethoprim] 800-160 mg tablet 1 tab PO BID Qty: 6 0RF No Action sertraline 100 mg tablet 100 mg PO DAILY Bystolic 20 mg tablet 20 mg PO DAILY chlorthalidone 25 mg tablet 25 mg PO DAILY meclizine 12.5 mg tablet 12.5 mg PO TID PRN PRN (Reason: Dizziness) atorvastatin 10 MG tablet 40 mg PO DAILY aspirin 81 MG tablet,delayed release (DR/EC) 81 mg PO DAILY allopurinol 100 mg tablet 100 mg PO DAILY Label Comments: TAKE 1 TABLET BY MOUTH ONCE DAILY glimepiride 2 mg tablet 2 mg PO DAILY Label Comments: TAKE 1 TABLET BY MOUTH ONCE DAILY losartan 100 mg tablet 100 mg PO DAILY Label Comments: TAKE 1 TABLET BY MOUTH ONCE DAILY Primary Care Provider: Rafi Moraes Referrals: Rafi Moraes MD [Primary Care Provider] - 3-5 Days Disposition Disposition: Home, Self Care
[2022-07-21 21:01] LABS: Bacteria 0 SEEN /hpf (None Seen); Mucous, Urine 0 SEEN /hpf (<or=2+)
[2022-07-21 21:07] LABS: Color, Urine Yellow (Yellow); Glucose, Dipstick Normal (Normal); Ketone-Dipstick Negative (Negative); Leukocyte Esterase-Dipstick 500 /ul (Negative); Nitrite-Dipstick Negative (Negative); Occult Blood-Urine 10 /ul (Negative); Protein-Dipstick 15 mg/dl (Negative); Urine Bilirubin Dipstick Negative (Negative); Urine Clarity Sl. Cloudy (Clear); Urine Urobilinogen Normal (Normal)
[2022-07-21 21:18] LABS: Red Blood Cells-Urine 0-5 SEEN /hpf (0-5); Squamous Epithelial Cells - UA 0-5 SEEN /hpf (5-10); White Blood Cells 10-25 SEEN /hpf (0-5)
[2022-07-21] MEDS: Smz/Tmp Ds Tablet 1 TABLET PO (21:53)
[2022-07-21] MEDS: Phenazopyridine 95 MG Tablet 190 MG PO (21:53)
== END 2022-07-21 21:54 | disposition home or self-care (01) ==
PROVIDERS: Emergency Provider Emergency Medicine; PCP Family Medicine; Visit Provider Emergency Medicine
DX: N39.0 Urinary tract infection, site not specified (principal); E11.9 Type 2 diabetes mellitus without complications; I10 Essential (primary) hypertension; Z87.891 Personal history of nicotine dependence; Z79.82 Long term (current) use of aspirin
CPT/HCPCS: 81001; 99282

== ENCOUNTER → 2022-07-26 | Outpatient (CLI) | payer MEDICARE, SELFPAY | END | disposition home or self-care (01) | PROVIDERS: PCP Family Medicine; Visit Provider Family Medicine | DX: R30.0 Dysuria (principal) | CPT/HCPCS: 87086 ==

== ENCOUNTER → 2022-08-22 | Outpatient (CLI) | payer MEDICARE, SELFPAY ==
[2022-08-22 13:19] LABS: Anion Gap 9 (5-15); BUN 24 mg/dL (7-18); BUN/Creat Ratio 16.7 RATIO (10-20); Calcium,Total 9.2 mg/dL (8.5-10.1); Chloride 104 mmol/L (98-107); Creatinine, Serum 1.44 mg/dL (0.55-1.02); EST Glomerular Filtration Rate 38 mL/min (>60); Est Glom Filt Rate - Afr Amer 46 mL/min (>60); Glucose 124 mg/dL (74-106); Potassium 3.6 mmol/L (3.5-5.1); Sodium Level 139 mmol/L (136-145)
== END | disposition home or self-care (01) ==
LOC: MFPLAB 10:43
PROVIDERS: PCP Family Medicine; Referring Provider Family Medicine; Visit Provider Family Medicine
DX: E11.9 Type 2 diabetes mellitus without complications (principal)
CPT/HCPCS: 36415; 80048

== ENCOUNTER 2023-01-23 20:15 | Emergency (ER) | payer MEDICARE, SELFPAY ==
[2023-01-23 20:16] VITALS: BP 148/95; PULSE 80; RESP 16; TEMP 36.8; O2SAT 98; BMI 33.6
[2023-01-23 20:29] LABS: Mucous, Urine 0 SEEN /hpf (<or=2+); Red Blood Cells-Urine 0 SEEN /hpf (0-5)
[2023-01-23 20:48] LABS: Color, Urine Yellow (Yellow); Glucose, Dipstick Normal (Normal); Ketone-Dipstick Negative (Negative); Leukocyte Esterase-Dipstick 500 /ul (Negative); Nitrite-Dipstick Negative (Negative); Occult Blood-Urine 10 /ul (Negative); Protein-Dipstick 30 mg/dl (Negative); Urine Bilirubin Dipstick Negative (Negative); Urine Clarity Sl. Cloudy (Clear); Urine Urobilinogen 1 mg/dl (Normal)
[2023-01-23 21:12] LABS: Bacteria RARE /hpf (None Seen); Squamous Epithelial Cells - UA 0-5 SEEN /hpf (5-10); White Blood Cells 25-50 SEEN /hpf (0-5)
--- NOTE | 2023-01-23 21:12 | ED.VIS.FEGU ---
HPI HPI - Female History of Present Illness Chief Complaint: Complaint Narrative Narrative: 77 year-old female past medical history of previous urinary tract infections, presents with pain at the end of urination for the last day. Her symptoms started yesterday. She took an Azo to help with the pain. She knows that she has a bladder infection. She denies any fevers or chills, no nausea or vomiting. No urinary frequency. She does have chronic back pain, but states when she has a kidney infection she usually has burning with urination which she does not currently. She presents to the emergency department because she has the symptoms of her usual bladder infections. [facility] Medical History Allergic rhinitis Benign essential HTN DM2 (diabetes mellitus, type 2) Home Medications aspirin 81 mg tablet,delayed release 81 mg PO DAILY 11/24/16 [History Last Taken Unknown] atorvastatin 10 mg tablet 40 mg PO DAILY 11/24/16 [History Last Taken Unknown] chlorthalidone 25 mg tablet 25 mg PO DAILY 05/18/20 [History Last Taken Unknown] meclizine 12.5 mg tablet 12.5 mg PO TID PRN PRN Dizziness 05/18/20 [History Last Taken Unknown] nebivolol 20 mg tablet (Bystolic) 20 mg PO DAILY 05/18/20 [History Last Taken Unknown] sertraline 100 mg tablet 100 mg PO DAILY 05/18/20 [History Last Taken Unknown] allopurinol 100 mg tablet 100 mg PO DAILY 07/21/22 [History Last Taken Unknown] glimepiride 2 mg tablet 2 mg PO DAILY 07/21/22 [History Last Taken Unknown] losartan 100 mg tablet 100 mg PO DAILY 07/21/22 [History Last Taken Unknown] phenazopyridine 200 mg tablet (Pyridium) 200 mg PO TID #10 tabs 07/21/22 [Rx Last Taken Unknown] sulfamethoxazole 800 mg-trimethoprim 160 mg tablet 1 tab PO BID #6 TABLETS 07/21/22 [Rx Last Taken Unknown] sulfamethoxazole 800 mg-trimethoprim 160 mg tablet (Bactrim DS) 1 tab PO BID #14 tabs 01/23/23 [Rx Last Taken Unknown] Allergy/AdvReac Type Severity Reaction Status Date / Time lisinopril Allergy Shortness Verified 01/23/23 20:18 of breath nickel Allergy Rash Verified 01/23/23 20:18 nitrofurantoin Allergy Other Verified 01/23/23 20:18 [From Macrodantin] prednisolone Allergy Other Verified 01/23/23 20:18 Family History Father Asthma Sister Asthma Surgical History S/P D&C (status post dilation and curettage) S/P hysterectomy S/P laparoscopic cholecystectomy S/P right breast biopsy Social History Smoking Status: Former smoker alcohol intake: never ROS ROS ED ROS Narrative Constitutional: No fever, no chills. HEENT: No sore throat. No neck pain. No loss of vision. No rhinorrhea. Cardiovascular: No chest pain. No palpitations. No pedal edema. Respiratory: No cough, no shortness of breath. Abdominal: No abdominal pain. No nausea. No vomiting. Genitourinary: Positive pain at the end of urination/dysuria. No hematuria. Musculoskeletal: No myalgias. No arthralgias. Neurologic: No headaches. No dizziness. No lightheadedness. Skin: No rash. No change in color. Psychiatric: No depression. No anxiety. EXAM Physical Exam Narrative Exam Narrative: Afebrile. Vital signs noted. HEENT: Normocephalic. Atraumatic. PERRL, EOMI. Neck soft and supple. No point tenderness or step off. Cardiovascular: Regular rate and rhythm. No murmurs, rubs, or gallops appreciated. Respiratory: No tachypnea. Lungs clear to auscultation bilaterally. Gastrointestinal: Abdomen soft, nontender, with normoactive bowel sounds. No rebound or guarding. No CVA tenderness to percussion bilaterally. Neurological: Awake. Alert. Nonfocal, nonlateralizing. Skin: No rash. Normal color. No pallor. Musculoskeletal: No pedal edema. Full range of motion extremities. Const Vital Signs: 01/23/23 20:16 Temperature 98.3 F Temperature Source Temporal Pulse Rate 80 Respiratory Rate 16 Blood Pressure 148/95 H Blood Pressure Mean 112 Pulse Ox 98 Oxygen Delivery Method Room Air MDM MDM MDM Narrative Medical decision making narrative: In the differential diagnosis is cystitis versus pyuria versus nonbacterial urinary tract infection symptoms. Urinalysis was obtained and dipstick is positive for leukocyte Estrace at 500 and occult blood at 10 but negative for nitrates. Microanalysis was obtained. In review, she has 25-50 WBCs with rare bacteria. She was given her first dose of Bactrim here in the emergency department and prescription written to take twice a day for the next 7 days as she states this is what usually works for her urinary tract infections. I feel she can be discharged safely home with follow-up. Return instructions were reviewed. Disposition is discharged home in stable condition. Lab Data Attestation: I reviewed the patient's lab results. Labs: Laboratory Results - last 24 hr 01/23/23 20:25 Urine Color Yellow Urine Clarity Sl. Cloudy Urine pH 6.0 Ur Specific [place] 1.020 Urine Protein 30 H Urine Glucose (UA) Normal Urine Ketones Negative Urine Occult Blood 10 H Urine Nitrite Negative Urine Bilirubin Negative Urine Urobilinogen 1 H Ur Leukocyte Esterase 500 H Urine RBC 0 SEEN Urine WBC 25-50 SEEN Ur Squamous Epith Cells 0-5 SEEN Urine Bacteria RARE Urine Mucus 0 SEEN Discharge Plan Triage Chief Complaint: Complaint ED Provider: Haldey Sanchez Dx/Rx/DC Orders Clinical Impression: UTI (urinary tract infection), Dysuria, DM2 (diabetes mellitus, type 2) Instructions: ED Cystitis Female Adult Prescriptions: New sulfamethoxazole-trimethoprim [Bactrim DS] 800-160 mg tablet 1 tab PO BID Qty: 14 0RF No Action sertraline 100 mg tablet 100 mg PO DAILY Bystolic 20 mg tablet 20 mg PO DAILY chlorthalidone 25 mg tablet 25 mg PO DAILY meclizine 12.5 mg tablet 12.5 mg PO TID PRN PRN (Reason: Dizziness) atorvastatin 10 MG tablet 40 mg PO DAILY aspirin 81 MG tablet,delayed release (DR/EC) 81 mg PO DAILY allopurinol 100 mg tablet 100 mg PO DAILY Label Comments: TAKE 1 TABLET BY MOUTH ONCE DAILY glimepiride 2 mg tablet 2 mg PO DAILY Label Comments: TAKE 1 TABLET BY MOUTH ONCE DAILY losartan 100 mg tablet 100 mg PO DAILY Label Comments: TAKE 1 TABLET BY MOUTH ONCE DAILY phenazopyridine [Pyridium] 200 mg tablet 200 mg PO TID Qty: 10 0RF sulfamethoxazole-trimethoprim [sulfamethoxazole-trimethoprim] 800-160 mg tablet 1 tab PO BID Qty: 6 0RF Primary Care Provider: Rafi Moraes Referrals: Rafi Moraes MD [Primary Care Provider] - 3-5 Days if not improving Disposition Disposition: Home, Self Care
[2023-01-23] MEDS: Smz/Tmp Ds Tablet 1 TABLET PO (21:50)
== END 2023-01-23 21:52 | disposition home or self-care (01) ==
PROVIDERS: Emergency Provider Emergency Medicine; PCP Family Medicine; Visit Provider Emergency Medicine
DX: N39.0 Urinary tract infection, site not specified (principal); E11.9 Type 2 diabetes mellitus without complications; R30.0 Dysuria; Z87.891 Personal history of nicotine dependence
CPT/HCPCS: 81001; 87086; 87088; 87186; 99283

== ENCOUNTER → 2023-02-20 | Outpatient (CLI) | payer MEDICARE, SELFPAY ==
[2023-02-20 16:27] LABS: ALB/GLOB Ratio 0.9 RATIO (0.9-2.4); AST(SGOT) 11 U/L (15-37); Alanine Aminotransfer ALT/SGPT 23 U/L (13-56); Albumin, Serum 3.6 g/dL (3.2-5.0); Alkaline Phosphatase 63 U/L (45-117); Anion Gap 11 (5-15); BUN 27 mg/dL (7-18); BUN/Creat Ratio 19.7 RATIO (10-20); Calcium,Total 9.4 mg/dL (8.5-10.1); Chloride 103 mmol/L (98-107); Cholesterol 156 mg/dL (200); Creatinine, Serum 1.37 mg/dL (0.55-1.02); EST Glomerular Filtration Rate 40 mL/min (>60); Est Glom Filt Rate - Afr Amer 48 mL/min (>60); Glucose 164 mg/dL (74-106); High Density Lipoprotein 41 mg/dL; Protein, Total 7.6 g/dL (6.4-8.2); Sodium Level 138 mmol/L (136-145); Triglycerides 202 mg/dL; Very Low Density Lipoprotein 40 mg/dL (5-40)
== END | disposition home or self-care (01) ==
LOC: MFPLAB 10:37
PROVIDERS: PCP Family Medicine; Referring Provider Family Medicine; Visit Provider Family Medicine
DX: E78.5 Hyperlipidemia, unspecified (principal)
CPT/HCPCS: 36415; 80053; 80061

== ENCOUNTER → 2023-04-26 | Outpatient (CLI) | payer MEDICARE, SELFPAY ==
--- NOTE | 2023-04-26 15:35 | RAD_ITS ---
STUDY: X-RAY - RIGHT KNEE REASON FOR EXAM: Female, 77 years old. Pain and stiffness TECHNIQUE: 4 view(s) of the knee. COMPARISON: None. FINDINGS: Normal visualized distal femur. Normal visualized proximal tibia and fibula. Normal proximal tibiofibular articulation. There is mild degenerative arthrosis of the medial femorotibial compartment. Normal lateral femorotibial compartment. There is moderate degenerative arthrosis of the patellofemoral articulation. The soft tissue structures are unremarkable. RAD/Knee 4 or More Views IMPRESSION: Degenerative arthrosis. Electronically Signed: Cale Pascal MD at 15:48 EDT ,
== END | disposition home or self-care (01) ==
LOC: MTRAD 15:25
PROVIDERS: PCP Family Medicine; Referring Provider Family Medicine; Visit Provider Family Medicine
DX: M25.569 Pain in unspecified knee (principal)
CPT/HCPCS: 73564

== ENCOUNTER → 2023-05-20 | Outpatient (CLI) | payer MEDICARE, SELFPAY ==
[2023-05-20 17:58] LABS: Mucous, Urine 0 SEEN /hpf (<or=2+)
[2023-05-20 18:20] LABS: Color, Urine Yellow (Yellow); Glucose, Dipstick 50 mg/dl (Normal); Ketone-Dipstick 5 mg/dl (Negative); Leukocyte Esterase-Dipstick 500 /ul (Negative); Nitrite-Dipstick Negative (Negative); Occult Blood-Urine 25 /ul (Negative); Protein-Dipstick 30 mg/dl (Negative); Specific Gravity, Urine 1.025 (1.002-1.030); Urine Bilirubin Dipstick Negative (Negative); Urine Urobilinogen Normal (Normal)
[2023-05-20 18:47] LABS: Red Blood Cells-Urine 5-10 SEEN /hpf (0-5); White Blood Cells 50-100 SEEN /hpf (0-5)
[2023-05-20 18:48] LABS: Amorphous Sediment 1+ URATE; Bacteria RARE /hpf (None Seen); Squamous Epithelial Cells - UA 5-10 SEEN /hpf (5-10); Urine Clarity Sl Cldy (Clear)
== END | disposition home or self-care (01) ==
PROVIDERS: PCP Family Medicine; Visit Provider Physician Assistant
DX: R35.0 Frequency of micturition (principal)
CPT/HCPCS: 81001; 87077; 87086; 87088; 87186

== ENCOUNTER 2023-07-03 17:04 | Emergency (ER) | payer MEDICARE, SELFPAY ==
[2023-07-03 17:05] VITALS: BP 150/73; PULSE 60; RESP 16; TEMP 36.3; O2SAT 96
--- NOTE | 2023-07-03 17:39 | EDS_ITS ---
HPI HPI - Fall History of Present Illness Chief Complaint: Fall Detail of Chief Complaint: Fall Informant: patient Narrative Narrative: Patient presents to the emergency department complaining of a fall. She was [employer] a [employer] when her foot caught on the edge of concrete on a wheelchair ramp and she fell onto the ramp itself onto her left side. She does not think she hit her head. There is no loss of consciousness. She denies neck pain out of the ordinary. Complains of pain mostly underneath her left arm and ribs. She complains of some pain in her left wrist. Patient complains of some mild skin abrasion to left knee. She denies shortness of breath. She denies abdominal pain. She denies back pain. She has been ambulatory since the fall. [facility] Medical History (Updated 07/03/23 @ 19:[address] Ha Krause, ) Allergic rhinitis Arthritis Benign essential HTN Chronic neck and back pain Diarrhea Difficulty balancing when standing DM2 (diabetes mellitus, type 2) Hemorrhoids Incontinence Knee pain Shoulder pain Home Medications aspirin 81 mg tablet,delayed release 81 mg PO DAILY 11/24/16 [History Last Taken Unknown] atorvastatin 10 mg tablet 40 mg PO DAILY 11/24/16 [History Last Taken Unknown] chlorthalidone 25 mg tablet 25 mg PO DAILY 05/18/20 [History Last Taken Unknown] nebivolol 20 mg tablet (Bystolic) 20 mg PO DAILY 05/18/20 [History Last Taken Unknown] sertraline 100 mg tablet 100 mg PO DAILY 05/18/20 [History Last Taken Unknown] amlodipine 5 mg tablet 5 mg PO DAILY 05/20/23 [History Last Taken Unknown] metformin 1,000 mg tablet 1,000 mg PO BID 05/20/23 [History Last Taken Unknown] oxycodone-acetaminophen 5 mg-325 mg tablet (Percocet) 1 tab PO Q8H PRN pain 3 days #10 tabs 07/03/23 [Rx Last Taken Unknown] Allergy/AdvReac Type Severity Reaction Status Date / Time lisinopril Allergy Shortness Verified 07/03/23 17:07 of breath nickel Allergy Rash Verified 07/03/23 17:07 nitrofurantoin Allergy Other Verified 07/03/23 17:07 [From Macrodantin] prednisolone Allergy Other Verified 07/03/23 17:07 Family History Father Asthma Sister Asthma Surgical History S/P D&C (status post dilation and curettage) S/P hysterectomy S/P laparoscopic cholecystectomy S/P right breast biopsy Social History Smoking Status: Former smoker alcohol intake: never ROS ROS ED Review of Systems ROS Unobtainable: other Constitutional Constitutional ED: Reports lethargy; Denies chills, fever(s), sweats or weight loss Eyes Eyes: Denies blurry vision, change in vision or diplopia ENT ENT ED: Denies rhinorrhea or sore throat Cardiovascular Cardiovascular: Reports chest pain; Denies orthopnea or racing heartbeat Respiratory/Chest Respiratory/Chest: Denies cough, dyspnea, dyspnea on exertion, orthopnea or sputum Gastrointestinal Gastrointestinal: Denies abdominal pain, diarrhea, nausea or vomiting Genitourinary Genitourinary ED: Denies dysuria, hematuria or urinary frequency Musculoskeletal Musculoskeletal: Reports other Details: Left wrist pain ; Denies arthralgias, back pain, myalgias or neck pain Integumentary Denies abscess, Abrasions or rash Neurologic Neurologic: Denies headache(s) or weakness Psychiatric Psychiatric: Denies anxiety, depression or suicidal thoughts Endocrine Endocrinology: Denies polydipsia, polyphagia or polyuria Hematologic/Lymphatic Hematologic/Lymphatic: Denies easy bleeding, easy bruising or lymphadenopathy Allergic/Immunologic Allergic/Immunologic ED: Denies mouth swelling, tongue swelling or urticaria EXAM Physical Exam Const Vital Signs: 07/03/23 17:05 07/03/23 17:59 Temperature 97.4 F L Temperature Source Temporal Pulse Rate 60 Respiratory Rate 16 Respiratory Effort Normal Non-Labored Respiratory Depth Normal Respiratory Pattern Normal Blood Pressure 150/73 H Blood Pressure Mean 98 Pulse Ox 96 Oxygen Delivery Method Room Air Room Air Positive well nourished and well developed General Appearance ED: well developed and NAD HEENT Reports TM's clear and moist mucous membranes normocephalic and atraumatic; Negative for trauma or tenderness Tympanic Membrane ED: Yes TM's clear Eyes PERRL and EOMs intact bilaterally General Eye ED: Negative for pale conjunctiva or scleral icterus Neck no lymphadenopathy, supple and no JVD General: Negative for tenderness Chest Wall palpation of chest normal Chest Narrative: Tenderness to left ribs in the midaxillary line near the axilla. No ecchymosis or bruising noted. There is no subcu emphysema. Chest: Negative for tenderness Resp normal respiratory effort and clear to auscultation bilaterally Effort and Inspection: Negative for respiratory distress or pain with movement Auscultation: Negative for rhonchi, wheezes or diminished lung sounds Cardio regular rate, regular rhythm, S1 normal heart sound, S2 normal heart sound and no murmurs Peripheral Pulses: pulses 2+ throughout GI normal to inspection, nondistended, normoactive bowel sounds, soft to palpation, non-tender, non-distended and no masses Back/Spine no CVA tenderness and no thoracic nor lumbar tenderness Extremity Extremity Narrative: Left wrist-patient has diffuse tenderness palpation over the left wrist. Mild soft tissue swelling. No obvious deformity. Neurovascular intact distally. General Extremety ED: Negative for edema General Extremity: Negative for edema Neuro oriented x3, CN's II-XII intact bilaterally, no sensory deficits noted and gait normal Sensorium / Orientation: awake, alert, oriented to person, oriented to place and oriented to time Motor Exam: strength 5/5 throughout and strength abnormal Psych mental status grossly normal Skin no rashes or lesions noted and no wounds MDM MDM MDM Narrative Medical decision making narrative: Patient presents after a fall with injury to her left chest wall and left wrist. She did not anything for pain. On x-ray she has 3 broken ribs on the left 5 6 and 7. Patient will be given a prescription for Percocet and an incentive spirometer. She is to follow-up with her primary care physician 5 to 7 days. She is to return if increasing shortness of breath, hemoptysis, worsening pain, or condition should worsen anyway. Radiography Diagnostic Testing: Clinical Impression(s) from Imaging Studies Ribs w/Chest X-Ray 07/03/23 18:13 IMPRESSION: Fractures are noted of the left fifth through seventh ribs. Electronically Signed: Fabio Regan DO at 18:55 EDT , Wrist X-Ray 07/03/23 18:13 IMPRESSION: No acute bony injury. Electronically Signed: Fabio Regan DO at 18:51 EDT , Three-view x-rays of left ribs and chest x-ray obtained interpreted by myself as fracture of ribs 5 6 and 7. Radiology in agreement. There is no evidence of pneumothorax. Three-view x-rays of left wrist obtained interpreted by myself as no acute fracture or dislocation. Radiology in agreement. Discharge Plan Triage Chief Complaint: Fall ED Provider: Ha Krause Dx/Rx/DC Orders Clinical Impression: Fracture of rib, Fall, Left wrist sprain Instructions: ED Mechanical Fall, ED Rib Fracture, ED Wrist Sprain Prescriptions: New oxycodone-acetaminophen [Percocet] 5-325 mg tablet 1 tab PO Q8H PRN (Reason: pain) 3 Days Qty: 10 0RF No Action sertraline 100 mg tablet 100 mg PO DAILY Bystolic 20 mg tablet 20 mg PO DAILY chlorthalidone 25 mg tablet 25 mg PO DAILY metformin 1,000 mg tablet 1,000 mg PO BID Patient Comments: TAKE 1 TABLET BY MOUTH TWICE DAILY amlodipine 5 mg tablet 5 mg PO DAILY atorvastatin 10 MG tablet 40 mg PO DAILY aspirin 81 MG tablet,delayed release (DR/EC) 81 mg PO DAILY Primary Care Provider: Rafi Moraes Referrals: Rafi Moraes MD [Primary Care Provider] - 5-7 Days Disposition Disposition: Home, Self Care
[2023-07-03 17:55] VITALS: BMI 31.4
--- NOTE | 2023-07-03 18:13 | RAD_ITS ---
INDICATION: fall EXAMINATION/TECHNIQUE: X-RAY - LEFT XR Wrist 3 VIEWS COMPARISON: FINDINGS: SOFT TISSUES: No soft tissue swelling or gas. No radiopaque foreign body. BONES/JOINTS: No acute fracture or subluxation.. Normal alignment. Preservation of the joint space.. No sclerotic or destructive changes observed. RAD/Wrist min 3 Views IMPRESSION: No acute bony injury. Electronically Signed: Fabio Regan DO at 18:51 EDT ,
--- NOTE | 2023-07-03 18:13 | RAD_ITS ---
INDICATION: fall EXAMINATION/TECHNIQUE: X-RAY - XR Ribs Unilateral W/ PA Chest Min 3 Views COMPARISON: FINDINGS: SOFT TISSUES: No soft tissue swelling or gas. BONES: Fractures are noted of the left fifth through seventh ribs. No sclerotic or destructive changes observed. VISUALIZED LUNGS: Clear. No pneumothorax. RAD/Ribs Uni Min 3V w/PA Chest IMPRESSION: Fractures are noted of the left fifth through seventh ribs. Electronically Signed: Fabio Regan DO at 18:55 EDT ,
== END 2023-07-03 19:49 | disposition home or self-care (01) ==
PROVIDERS: Emergency Provider Emergency Medicine; PCP Family Medicine; Visit Provider Emergency Medicine
DX: S22.42XA Multiple fractures of ribs, left side, initial encounter for closed fracture (principal); E11.9 Type 2 diabetes mellitus without complications; I10 Essential (primary) hypertension; Z87.891 Personal history of nicotine dependence; W10.2XXA Fall (on)(from) incline, initial encounter; S63.92XA Sprain of unspecified part of left wrist and hand, initial encounter; Y92.89 Other specified places as the place of occurrence of the external cause; G89.29 Other chronic pain; Z79.899 Other long term (current) drug therapy; Z79.82 Long term (current) use of aspirin; Z79.84 Long term (current) use of oral hypoglycemic drugs; S80.212A Abrasion, left knee, initial encounter
CPT/HCPCS: 71101; 73110; 99283; A4216

== ENCOUNTER → 2023-08-19 | Outpatient (CLI) | payer MEDICARE, SELFPAY ==
[2023-08-19 16:09] LABS: Anion Gap 10 (5-15); BUN 22 mg/dL (7-18); BUN/Creat Ratio 16.1 RATIO (10-20); Calcium,Total 9.2 mg/dL (8.5-10.1); Chloride 103 mmol/L (98-107); Cholesterol 186 mg/dL (200); Creatinine, Serum 1.37 mg/dL (0.55-1.02); EST Glomerular Filtration Rate 40 mL/min (>60); Est Glom Filt Rate - Afr Amer 48 mL/min (>60); Glucose 162 mg/dL (74-106); High Density Lipoprotein 39 mg/dL; Potassium 3.8 mmol/L (3.5-5.1); Sodium Level 138 mmol/L (136-145); Triglycerides 305 mg/dL; Very Low Density Lipoprotein 61 mg/dL (5-40)
== END | disposition home or self-care (01) ==
LOC: MFPLAB 11:29
PROVIDERS: PCP Family Medicine; Visit Provider Family Medicine
DX: Z00.00 Encounter for general adult medical examination without abnormal findings (principal); I10 Essential (primary) hypertension
CPT/HCPCS: 36415; 80048; 80061

== ENCOUNTER 2023-10-04 18:04 | Emergency (ER) | payer MEDICARE, SELFPAY ==
[2023-10-04 18:05] VITALS: BP 126/78; PULSE 68; RESP 16; TEMP 36.1; O2SAT 95; BMI 32.0
--- NOTE | 2023-10-04 18:25 | ED.VIS.FEGU ---
HPI HPI - Female History of Present Illness Chief Complaint: Complaint Informant: patient Narrative Narrative: Dysuria starting 2 hours ago. No fevers or back pain. No nausea or vomiting. History of UTI with similar presentation last time was this past summer. Allergy to Macrobid. States medication that typically works is Bactrim. She denies any kidney disease. Prior similar symptoms: Yes PFSH PFSH Medical History Allergic rhinitis Arthritis Benign essential HTN Chronic neck and back pain Diarrhea Difficulty balancing when standing DM2 (diabetes mellitus, type 2) Hemorrhoids Incontinence Knee pain Shoulder pain Home Medications aspirin 81 mg tablet,delayed release 81 mg PO DAILY 11/24/16 [History Last Taken Unknown] atorvastatin 10 mg tablet 40 mg PO DAILY 11/24/16 [History Last Taken Unknown] chlorthalidone 25 mg tablet 25 mg PO DAILY 05/18/20 [History Last Taken Unknown] nebivolol 20 mg tablet (Bystolic) 20 mg PO DAILY 05/18/20 [History Last Taken Unknown] sertraline 100 mg tablet 100 mg PO DAILY 05/18/20 [History Last Taken Unknown] amlodipine 5 mg tablet 5 mg PO DAILY 05/20/23 [History Last Taken Unknown] metformin 1,000 mg tablet 1,000 mg PO BID 05/20/23 [History Last Taken Unknown] oxycodone-acetaminophen 5 mg-325 mg tablet (Percocet) 1 tab PO Q8H PRN pain 3 days #10 tabs 07/03/23 [Rx Last Taken Unknown] phenazopyridine 200 mg tablet (Pyridium) 200 mg PO BID PRN PRN Pain #10 tabs 10/04/23 [Rx Last Taken Unknown] sulfamethoxazole 800 mg-trimethoprim 160 mg tablet (Bactrim DS) 1 tab PO BID #14 tabs 10/04/23 [Rx Last Taken Unknown] Allergy/AdvReac Type Severity Reaction Status Date / Time lisinopril Allergy Shortness Verified 10/04/23 18:05 of breath nickel Allergy Rash Verified 10/04/23 18:05 nitrofurantoin Allergy Other Verified 10/04/23 18:05 [From Macrodantin] prednisolone Allergy Other Verified 10/04/23 18:05 Family History Father Asthma Sister Asthma Surgical History S/P D&C (status post dilation and curettage) S/P hysterectomy S/P laparoscopic cholecystectomy S/P right breast biopsy Social History Smoking Status: Former smoker alcohol intake: never ROS ROS ED Constitutional Constitutional ED: Denies chills, fever(s) or sweats Eyes Eyes: Denies change in vision ENT ENT ED: Denies dysphagia or sore throat Cardiovascular Cardiovascular: Denies chest pain, leg edema, palpitations or racing heartbeat Respiratory/Chest Respiratory/Chest: Denies cough, dyspnea or dyspnea on exertion Gastrointestinal Gastrointestinal: Denies abdominal pain, diarrhea, nausea or vomiting Genitourinary Genitourinary ED: Reports dysuria; Denies hematuria or urinary frequency Musculoskeletal Musculoskeletal: Denies back pain, extremity pain or neck pain Integumentary Denies rash or wounds Neurologic Neurologic: Denies headache(s), paresthesias or weakness EXAM Physical Exam Const Vital Signs: 10/04/23 18:05 10/04/23 19:20 Temperature 97 F L Temperature Source Temporal Pulse Rate 68 68 Respiratory Rate 16 16 Blood Pressure 126/78 H 126/78 H Blood Pressure Mean 94 94 Pulse Ox 95 95 Oxygen Delivery Method Room Air Positive well nourished and well developed General Appearance ED: well developed and NAD HEENT Reports moist mucous membranes normocephalic and atraumatic Eyes conjunctivae normal General Eye ED: Yes normal appearance of both eyes Neck no lymphadenopathy and supple General: Negative for tenderness Chest Wall Chest: Negative for tenderness Resp normal respiratory effort and normal air movement Effort and Inspection: symmetric chest movement; Negative for respiratory distress Cardio regular rate, regular rhythm and no murmurs Peripheral Pulses: pulses 2+ throughout GI normal to inspection, nondistended, normoactive bowel sounds and non-tender Palpation: Negative for guarding or rebound tenderness present Back/Spine no CVA tenderness and no thoracic nor lumbar tenderness Extremity normal to inspection General Extremety ED: Negative for edema or tenderness General Extremity: Negative for edema Neuro oriented x3 and no sensory deficits noted Sensorium / Orientation: awake and alert Skin no rashes or lesions noted and no wounds MDM MDM MDM Narrative Medical decision making narrative: Interventions / MDM: Differential diagnosis: UTI, cystitis Diagnosis considered but do not suspect: N/A My EKG interpretation: N/A Imaging independently reviewed and interpreted by myself: N/A External documents reviewed: N/A Test considered but not ordered:N/A ED course: Nontoxic vital signs stable. Urine ordered. Results positive for infection. Started on Bactrim as she has tolerated this well in the past without any CKD history. Pyridium also started. Antibiotics sent to her pharmacy. Outpatient follow-up. All questions were answered. Re-evaluation: stable Disposition discussed with patient/family/significant other: Patient Case discussed with consulting clinician: N/A This note was generated with [employer] dictation software. It may contain incorrect words, spelling, and punctuation that were not noted in checking the note before signing. Lab Data Labs: Laboratory Results - last 24 hr 10/04/23 18:24 Urine Color Yellow Urine Clarity Turbid Urine pH 5.0 Ur Specific [place] 1.030 Urine Protein 100 H Urine Glucose (UA) Normal Urine Ketones 5 H Urine Occult Blood 250 H Urine Nitrite Negative Urine Bilirubin 1 H Urine Urobilinogen 1 H Ur Leukocyte Esterase 500 H Urine RBC 25-50 SEEN Urine WBC >100 SEEN Ur Squamous Epith Cells 0-5 SEEN Ur Renal Epithelial Cell 0-5 SEEN Urine Bacteria 0 SEEN Hyaline Casts 0-5 SEEN Urine Mucus 0 SEEN Discharge Plan Triage Chief Complaint: Complaint ED Provider: Darren Delaney Dx/Rx/DC Orders Clinical Impression: Dysuria, Acute UTI Instructions: UTIs Women Prescriptions: New sulfamethoxazole-trimethoprim [Bactrim DS] 800-160 mg tablet 1 tab PO BID Qty: 14 0RF phenazopyridine [Pyridium] 200 mg tablet 200 mg PO BID PRN PRN (Reason: Pain) Qty: 10 0RF No Action sertraline 100 mg tablet 100 mg PO DAILY Bystolic 20 mg tablet 20 mg PO DAILY chlorthalidone 25 mg tablet 25 mg PO DAILY metformin 1,000 mg tablet 1,000 mg PO BID Patient Comments: TAKE 1 TABLET BY MOUTH TWICE DAILY amlodipine 5 mg tablet 5 mg PO DAILY atorvastatin 10 MG tablet 40 mg PO DAILY aspirin 81 MG tablet,delayed release (DR/EC) 81 mg PO DAILY oxycodone-acetaminophen [Percocet] 5-325 mg tablet 1 tab PO Q8H PRN (Reason: pain) 3 Days Qty: 10 0RF Primary Care Provider: Rafi Moraes Referrals: Rafi Moraes MD [Primary Care Provider] - 1 Week Activity Restrictions/Additional Instructions: Urine positive for infection. Take antibiotic and Pyridium as prescribed. Follow-up with your doctor. Disposition Disposition: Home, Self Care Discharge Date/Time: 10/04/23 19:30
[2023-10-04 18:56] LABS: Bacteria 0 SEEN /hpf (None Seen); Mucous, Urine 0 SEEN /hpf (<or=2+)
[2023-10-04 18:57] LABS: Color, Urine Yellow (Yellow); Glucose, Dipstick Normal (Normal); Ketone-Dipstick 5 mg/dl (Negative); Leukocyte Esterase-Dipstick 500 /ul (Negative); Nitrite-Dipstick Negative (Negative); Occult Blood-Urine 250 /ul (Negative); Protein-Dipstick 100 mg/dl (Negative); Urine Clarity Turbid (Clear); Urine Urobilinogen 1 mg/dl (Normal)
[2023-10-04 19:00] LABS: Urine Bilirubin Dipstick 1 mg/dL (Negative)
[2023-10-04 19:07] LABS: Hyaline Cast 0-5 SEEN /lpf (0-5); Red Blood Cells-Urine 25-50 SEEN /hpf (0-5); Renal Epithelial Cells 0-5 SEEN /hpf (0-5); Squamous Epithelial Cells - UA 0-5 SEEN /hpf (5-10); White Blood Cells >100 SEEN /hpf (0-5)
[2023-10-04] MEDS: Phenazopyridine 95 MG Tablet 190 MG PO (19:15)
[2023-10-04] MEDS: Smz/Tmp Ds Tablet 1 TABLET PO (19:15)
[2023-10-04 19:20] VITALS: BP 126/78; PULSE 68; RESP 16; O2SAT 95
== END 2023-10-04 19:30 | disposition home or self-care (01) ==
PROVIDERS: Emergency Provider Emergency Medicine; PCP Family Medicine; Visit Provider Emergency Medicine
DX: N39.0 Urinary tract infection, site not specified (principal); R30.0 Dysuria; Z87.891 Personal history of nicotine dependence
CPT/HCPCS: 81001; 99283

== ENCOUNTER → 2023-11-12 | Outpatient (CLI) | payer MEDICARE, SELFPAY ==
[2023-11-12 12:46] LABS: Mucous, Urine 0 SEEN /hpf (<or=2+)
[2023-11-12 13:06] LABS: Color, Urine Yellow (Yellow); Glucose, Dipstick Normal (Normal); Ketone-Dipstick Negative (Negative); Leukocyte Esterase-Dipstick 500 /ul (Negative); Nitrite-Dipstick Positive (Negative); Occult Blood-Urine 25 /ul (Negative); Protein-Dipstick 30 mg/dl (Negative); Urine Clarity Cloudy (Clear); Urine Urobilinogen 4 mg/dl (Normal)
[2023-11-12 13:11] LABS: Urine Bilirubin Dipstick 1 mg/dL (Negative)
[2023-11-12 13:30] LABS: Red Blood Cells-Urine 0-5 SEEN /hpf (0-5); Squamous Epithelial Cells - UA 0-5 SEEN /hpf (5-10); White Blood Cells >100 SEEN /hpf (0-5)
[2023-11-12 13:31] LABS: Bacteria 1+ /hpf (None Seen)
== END | disposition home or self-care (01) ==
LOC: LABSPEC 12:13
PROVIDERS: PCP Family Medicine; Referring Provider Physician Assistant; Visit Provider Physician Assistant
DX: R30.0 Dysuria (principal)
CPT/HCPCS: 81001; 87077; 87086; 87088; 87186

== ENCOUNTER → 2023-12-05 | Outpatient (CLI) | payer MEDICARE, SELFPAY ==
[2023-12-05 18:45] LABS: Anion Gap 10 (5-15); BUN 26 mg/dL (7-18); BUN/Creat Ratio 20.5 RATIO (10-20); Calcium,Total 9.1 mg/dL (8.5-10.1); Chloride 104 mmol/L (98-107); Cholesterol 147 mg/dL (200); Creatinine, Serum 1.27 mg/dL (0.55-1.02); EST Glomerular Filtration Rate 43 mL/min (>60); Est Glom Filt Rate - Afr Amer 52 mL/min (>60); Glucose 129 mg/dL (74-106); High Density Lipoprotein 42 mg/dL; Potassium 3.7 mmol/L (3.5-5.1); Sodium Level 138 mmol/L (136-145); Thyroid Stim Hormone (TSH) 1.34 uIU/mL (0.358-3.74); Triglycerides 242 mg/dL; Very Low Density Lipoprotein 48 mg/dL (5-40)
== END | disposition home or self-care (01) ==
LOC: MFPLAB 14:52
PROVIDERS: PCP Family Medicine; Visit Provider Family Medicine
DX: I10 Essential (primary) hypertension (principal); F32.A Depression, unspecified
CPT/HCPCS: 36415; 80048; 80061; 84443

== ENCOUNTER 2023-12-13 21:01 | Emergency (ER) | payer MEDICARE, SELFPAY ==
[2023-12-13 21:02] VITALS: BP 152/75; PULSE 76; RESP 18; TEMP 35.7; O2SAT 95
[2023-12-13 21:05] VITALS: BMI 32.1
--- NOTE | 2023-12-13 21:28 | EX.ED.DYSGE1 ---
HPI History of Present Illness Chief Complaint: Complaint Informant: patient Onset/Context/Timing Onset: Today Context: Gradual Onset Timing: Intermittent Quality: Sharp Location: Urethra Worsened by: Urination Relieved by: Nothing Narrative Narrative: Patient presents with dysuria that began today. Patient states that she has some sharp pain at the end of urination. Patient states she has a history of frequent urinary tract infections and states this feels similar to prior urinary tract infections. Patient denies any fevers or chills. Patient denies any nausea or vomiting. Patient denies any back pain. Prior similar symptoms: Yes (With prior urinary tract infections) [facility] Medical History Allergic rhinitis Arthritis Benign essential HTN Chronic neck and back pain Diarrhea Difficulty balancing when standing DM2 (diabetes mellitus, type 2) Hemorrhoids Incontinence Knee pain Shoulder pain Home Medications aspirin 81 mg tablet,delayed release 81 mg PO DAILY 11/24/16 [History Last Taken Unknown] atorvastatin 10 mg tablet 40 mg PO DAILY 11/24/16 [History Last Taken Unknown] chlorthalidone 25 mg tablet 25 mg PO DAILY 05/18/20 [History Last Taken Unknown] nebivolol 20 mg tablet (Bystolic) 20 mg PO DAILY 05/18/20 [History Last Taken Unknown] sertraline 100 mg tablet 100 mg PO DAILY 05/18/20 [History Last Taken Unknown] amlodipine 5 mg tablet 5 mg PO DAILY 05/20/23 [History Last Taken Unknown] metformin 1,000 mg tablet 1,000 mg PO BID 05/20/23 [History Last Taken Unknown] oxycodone-acetaminophen 5 mg-325 mg tablet (Percocet) 1 tab PO Q8H PRN pain 3 days #10 tabs 07/03/23 [Rx Last Taken Unknown] phenazopyridine 200 mg tablet (Pyridium) 200 mg PO BID PRN PRN Pain #10 tabs 10/04/23 [Rx Last Taken Unknown] sulfamethoxazole 800 mg-trimethoprim 160 mg tablet (Bactrim DS) 1 tab PO BID #14 tabs 10/04/23 [Rx Last Taken Unknown] sulfamethoxazole 800 mg-trimethoprim 160 mg tablet 1 tab PO BID #14 tabs 12/13/23 [Rx Last Taken Unknown] Allergy/AdvReac Type Severity Reaction Status Date / Time lisinopril Allergy Shortness Verified 12/13/23 21:02 of breath nickel Allergy Rash Verified 12/13/23 21:02 nitrofurantoin Allergy Other Verified 12/13/23 21:02 [From Macrodantin] prednisolone Allergy Other Verified 12/13/23 21:02 Family History Father Asthma Sister Asthma Surgical History S/P D&C (status post dilation and curettage) S/P hysterectomy S/P laparoscopic cholecystectomy S/P right breast biopsy Social History household members: children Smoking Status: Former smoker alcohol intake: never ROS ROS ED Constitutional Constitutional ED: Denies chills or fever(s) Eyes Eyes: Denies blurry vision or change in vision ENT ENT ED: Reports rhinorrhea; Denies sore throat Cardiovascular Cardiovascular: Denies chest pain or palpitations Respiratory/Chest Respiratory/Chest: Reports cough; Denies dyspnea Gastrointestinal Gastrointestinal: Denies nausea or vomiting Genitourinary Genitourinary ED: Reports dysuria; Denies hematuria Musculoskeletal Musculoskeletal: Reports neck pain; Denies back pain Integumentary Denies abscess or rash Neurologic Neurologic: Denies headache(s) or weakness Allergic/Immunologic Allergic/Immunologic ED: Denies mouth swelling or urticaria EXAM Physical Exam Const Vital Signs: 12/13/23 21:02 Temperature 96.3 F L Temperature Source Temporal Pulse Rate 76 Respiratory Rate 18 Blood Pressure 152/75 H Blood Pressure Mean 100 Pulse Ox 95 Oxygen Delivery Method Room Air Positive well nourished and well developed General Appearance ED: well developed and NAD HEENT Reports moist mucous membranes Neck supple and no JVD Resp normal respiratory effort and clear to auscultation bilaterally Cardio regular rate and regular rhythm GI non-tender and non-distended Palpation: soft Neuro oriented x3, CN's II-XII intact bilaterally and no sensory deficits noted Sensorium / Orientation: alert Motor Exam: strength 5/5 throughout Psych mental status grossly normal MDM MDM MDM Narrative Medical decision making narrative: Differential diagnosis includes dysuria, urinary tract infection, and hematuria. Urinalysis will be obtained to assess for urinary tract infection and hematuria. Urine culture will be obtained to assess for urinary tract infection. Lab Data Attestation: I reviewed the patient's lab results. Lab results narrative: Urinalysis was reviewed. Leukocyte esterase was 500 with 10-25 white blood cells. Labs: Laboratory Results - last 24 hr 12/13/23 22:13 Urine Color Yellow Urine Clarity Clear Urine pH 5.0 Ur Specific [place] 1.020 Urine Protein 15 H Urine Glucose (UA) Normal Urine Ketones Negative Urine Occult Blood 10 H Urine Nitrite Negative Urine Bilirubin Negative Urine Urobilinogen Normal Ur Leukocyte Esterase 500 H Urine RBC 0 SEEN Urine WBC 10-25 SEEN Ur Squamous Epith Cells 0-5 SEEN Urine Bacteria 0 SEEN Urine Mucus 0 SEEN Treatment and Re-Evaluation :: Patient was advised of her findings. Patient states that Bactrim usually works well for her. Patient was given a dose of Bactrim here. Patient was given a prescription for Bactrim. Patient was instructed to follow-up with her primary care physician in 5 to 7 days for further evaluation. Patient understood and was agreeable with the plan. All questions were answered. Discharge Plan Triage Chief Complaint: Complaint ED Provider: Andrew Garcia Dx/Rx/DC Orders Clinical Impression: Urinary tract infection, DM2 (diabetes mellitus, type 2) Instructions: ED Cystitis Female Adult Prescriptions: Continued sulfamethoxazole-trimethoprim 800-160 mg tablet 1 tab PO BID Qty: 14 0RF No Action sertraline 100 mg tablet 100 mg PO DAILY Bystolic 20 mg tablet 20 mg PO DAILY chlorthalidone 25 mg tablet 25 mg PO DAILY metformin 1,000 mg tablet 1,000 mg PO BID Patient Comments: TAKE 1 TABLET BY MOUTH TWICE DAILY amlodipine 5 mg tablet 5 mg PO DAILY atorvastatin 10 MG tablet 40 mg PO DAILY aspirin 81 MG tablet,delayed release (DR/EC) 81 mg PO DAILY oxycodone-acetaminophen [Percocet] 5-325 mg tablet 1 tab PO Q8H PRN (Reason: pain) 3 Days Qty: 10 0RF sulfamethoxazole-trimethoprim [Bactrim DS] 800-160 mg tablet 1 tab PO BID Qty: 14 0RF phenazopyridine [Pyridium] 200 mg tablet 200 mg PO BID PRN PRN (Reason: Pain) Qty: 10 0RF Primary Care Provider: Rafi Moraes Referrals: Rafi Moraes MD [Primary Care Provider] - 5-7 Days Disposition Disposition: Home, Self Care
[2023-12-13 21:32] VITALS: BMI 32.1
[2023-12-13 22:18] LABS: Bacteria 0 SEEN /hpf (None Seen); Mucous, Urine 0 SEEN /hpf (<or=2+); Red Blood Cells-Urine 0 SEEN /hpf (0-5)
[2023-12-13 22:21] LABS: Color, Urine Yellow (Yellow); Glucose, Dipstick Normal (Normal); Ketone-Dipstick Negative (Negative); Leukocyte Esterase-Dipstick 500 /ul (Negative); Nitrite-Dipstick Negative (Negative); Occult Blood-Urine 10 /ul (Negative); Protein-Dipstick 15 mg/dl (Negative); Urine Bilirubin Dipstick Negative (Negative); Urine Clarity Clear (Clear); Urine Urobilinogen Normal (Normal)
[2023-12-13 22:33] LABS: White Blood Cells 10-25 SEEN /hpf (0-5)
[2023-12-13 22:34] LABS: Squamous Epithelial Cells - UA 0-5 SEEN /hpf (5-10)
[2023-12-13] MEDS: Smz/Tmp Ds Tablet 1 TABLET PO (23:18)
== END 2023-12-13 23:24 | disposition home or self-care (01) ==
PROVIDERS: Emergency Provider Emergency Medicine; PCP Family Medicine; Visit Provider Emergency Medicine
DX: N39.0 Urinary tract infection, site not specified (principal); E11.9 Type 2 diabetes mellitus without complications; Z87.891 Personal history of nicotine dependence
CPT/HCPCS: 81001; 87077; 87086; 87088; 87186; 99282

== ENCOUNTER 2024-01-18 17:35 | Emergency (ER) | payer MEDICARE, SELFPAY ==
[2024-01-18 17:37] VITALS: BP 131/81; PULSE 73; RESP 18; TEMP 36.4; BMI 32.3
[2024-01-18 17:42] VITALS: BP 131/81; PULSE 73; RESP 16; TEMP 36.4
--- NOTE | 2024-01-18 17:46 | EX.ED.DYSGE1 ---
HPI History of Present Illness Chief Complaint: Complaint Detail of Chief Complaint: Discomfort with urination and frequency Onset/Context/Timing Onset: Today Context: Sudden Onset Timing: Intermittent Quality: Pain Location: Urethra Current Severity: Gone Maximum Severity: Severe Worsened by: Urination Relieved by: Not applicable Associated Symptoms Associated Symptoms: None Narrative Narrative: Patient is a 78-year-old woman with recurrent urinary tract infection. Multiple urine cultures positive for E. coli. Sensitive for essentially everything. She denies fever, chills night sweats. Denies nausea or vomiting. She denies flank pain or low back pain. She does complain of pain with urination and frequency. She has no other symptoms. Prior similar symptoms: Yes Recent Illness/Hospitalization: Yes [facility] Medical History Allergic rhinitis Arthritis Benign essential HTN Chronic neck and back pain Diarrhea Difficulty balancing when standing DM2 (diabetes mellitus, type 2) Hemorrhoids Incontinence Knee pain Shoulder pain Home Medications aspirin 81 mg tablet,delayed release 81 mg PO DAILY 11/24/16 [History Last Taken Unknown] atorvastatin 10 mg tablet 40 mg PO DAILY 11/24/16 [History Last Taken Unknown] chlorthalidone 25 mg tablet 25 mg PO DAILY 05/18/20 [History Last Taken Unknown] nebivolol 20 mg tablet (Bystolic) 20 mg PO DAILY 05/18/20 [History Last Taken Unknown] sertraline 100 mg tablet 100 mg PO DAILY 05/18/20 [History Last Taken Unknown] amlodipine 5 mg tablet 5 mg PO DAILY 05/20/23 [History Last Taken Unknown] metformin 1,000 mg tablet 1,000 mg PO BID 05/20/23 [History Last Taken Unknown] oxycodone-acetaminophen 5 mg-325 mg tablet (Percocet) 1 tab PO Q8H PRN pain 3 days #10 tabs 07/03/23 [Rx Last Taken Unknown] phenazopyridine 200 mg tablet (Pyridium) 200 mg PO BID PRN PRN Pain #10 tabs 10/04/23 [Rx Last Taken Unknown] sulfamethoxazole 800 mg-trimethoprim 160 mg tablet (Bactrim DS) 1 tab PO BID #14 tabs 10/04/23 [Rx Last Taken Unknown] sulfamethoxazole 800 mg-trimethoprim 160 mg tablet 1 tab PO BID #14 tabs 12/13/23 [Rx Last Taken Unknown] cephalexin 500 mg capsule 500 mg PO 3XD #21 CAPSULES 01/18/24 [Rx Last Taken Unknown] phenazopyridine 200 mg tablet (Pyridium) 200 mg PO TID #10 tabs 01/18/24 [Rx Last Taken Unknown] Allergy/AdvReac Type Severity Reaction Status Date / Time lisinopril Allergy Shortness Verified 01/18/24 17:37 of breath nickel Allergy Rash Verified 01/18/24 17:37 nitrofurantoin Allergy Other Verified 01/18/24 17:37 [From Macrodantin] prednisolone Allergy Other Verified 01/18/24 17:37 Family History Father Asthma Sister Asthma Surgical History S/P D&C (status post dilation and curettage) S/P hysterectomy S/P laparoscopic cholecystectomy S/P right breast biopsy Social History household members: children Smoking Status: Former smoker alcohol intake: never ROS ROS ED Constitutional Constitutional ED: Denies chills, fever(s), subjective, sweats or weight loss Gastrointestinal Gastrointestinal: Denies abdominal pain, nausea or vomiting Genitourinary Genitourinary ED: Reports dysuria and urinary frequency; Denies hematuria Musculoskeletal Musculoskeletal: Denies arthralgias, back pain, myalgias or neck pain Hematologic/Lymphatic Hematologic/Lymphatic: Reports systems reviewed and no addt'l complaints, except as documented EXAM Physical Exam Const Vital Signs: 01/18/24 17:37 01/18/24 17:42 Temperature 97.5 F L 97.5 F L Temperature Source Temporal Temporal Pulse Rate 73 73 Respiratory Rate 18 16 Blood Pressure 131/81 H 131/81 H Blood Pressure Mean 97 97 Positive well nourished, well developed and obese General Appearance ED: well developed and NAD; Negative for pallor Nutritional Appearance: obese HEENT Reports moist mucous membranes HEENT Narrative: Head atraumatic normocephalic. Ears normal. Nares patent. Eyes PERRL and EOMs intact bilaterally General Eye ED: Negative for pale conjunctiva or scleral icterus Chest Wall inspection of chest normal Cardio regular rate and regular rhythm GI normal to inspection, nondistended, normoactive bowel sounds, non-tender, non-distended and no masses; Negative for hepatosplenomegaly Back/Spine no CVA tenderness Neuro oriented x3, CN's II-XII intact bilaterally and no sensory deficits noted Sensorium / Orientation: alert Psych mental status grossly normal Skin no rashes or lesions noted, no wounds and No skin turgor normal General Skin Exam: Negative for jaundice or pallor MDM MDM MDM Narrative Medical decision making narrative: Patient with urinary symptoms. Will obtain UA. If positive will send culture. Based on prior culture sensitivity we will treat with cephalexin. Because she has renal insufficiency with a GFR 42 will adjust dose of cephalexin to 500 every 8 hours. If urinalysis does not indicate infection we will pursue more testing. Lab Data Attestation: I reviewed the patient's lab results. Lab results narrative: Urine is consistent with infection. Urine culture was sent. Patient. Cephalexin Pyridium. Labs: Laboratory Results - last 24 hr 01/18/24 17:55 Urine Color Yellow Urine Clarity Cloudy Urine pH 5.0 Ur Specific [place] 1.025 Urine Protein 100 H Urine Glucose (UA) Normal Urine Ketones 5 H Urine Occult Blood 150 H Urine Nitrite Negative Urine Bilirubin 1 H Urine Urobilinogen 1 H Ur Leukocyte Esterase 500 H Urine RBC 5-10 SEEN Urine WBC 25-50 SEEN Ur Squamous Epith Cells 0-5 SEEN Urine Bacteria RARE Hyaline Casts 0-5 SEEN Urine Mucus 0 SEEN Discharge Plan Triage Chief Complaint: Complaint ED Provider: Ashu Edmond Dx/Rx/DC Orders Clinical Impression: Acute cystitis Instructions: ED Cystitis Female Adult Prescriptions: New phenazopyridine [Pyridium] 200 mg tablet 200 mg PO TID Qty: 10 0RF cephalexin [cephalexin] 500 mg capsule 500 mg PO 3XD Qty: 21 0RF No Action sertraline 100 mg tablet 100 mg PO DAILY Bystolic 20 mg tablet 20 mg PO DAILY chlorthalidone 25 mg tablet 25 mg PO DAILY metformin 1,000 mg tablet 1,000 mg PO BID Patient Comments: TAKE 1 TABLET BY MOUTH TWICE DAILY amlodipine 5 mg tablet 5 mg PO DAILY atorvastatin 10 MG tablet 40 mg PO DAILY aspirin 81 MG tablet,delayed release (DR/EC) 81 mg PO DAILY sulfamethoxazole-trimethoprim 800-160 mg tablet 1 tab PO BID Qty: 14 0RF oxycodone-acetaminophen [Percocet] 5-325 mg tablet 1 tab PO Q8H PRN (Reason: pain) 3 Days Qty: 10 0RF sulfamethoxazole-trimethoprim [Bactrim DS] 800-160 mg tablet 1 tab PO BID Qty: 14 0RF phenazopyridine [Pyridium] 200 mg tablet 200 mg PO BID PRN PRN (Reason: Pain) Qty: 10 0RF Primary Care Provider: Rafi Moraes Referrals: Rafi Moraes MD [Primary Care Provider] - 3-5 Days Disposition Disposition: Home, Self Care
[2024-01-18 18:04] LABS: Mucous, Urine 0 SEEN /hpf (<or=2+)
[2024-01-18 18:07] LABS: Color, Urine Yellow (Yellow); Glucose, Dipstick Normal (Normal); Ketone-Dipstick 5 mg/dl (Negative); Leukocyte Esterase-Dipstick 500 /ul (Negative); Nitrite-Dipstick Negative (Negative); Occult Blood-Urine 150 /ul (Negative); Protein-Dipstick 100 mg/dl (Negative); Specific Gravity, Urine 1.025 (1.002-1.030); Urine Clarity Cloudy (Clear); Urine Urobilinogen 1 mg/dl (Normal)
[2024-01-18 18:09] LABS: Squamous Epithelial Cells - UA 0-5 SEEN /hpf (5-10); Urine Bilirubin Dipstick 1 mg/dL (Negative)
[2024-01-18 18:11] LABS: Bacteria RARE /hpf (None Seen); Hyaline Cast 0-5 SEEN /lpf (0-5); Red Blood Cells-Urine 5-10 SEEN /hpf (0-5); White Blood Cells 25-50 SEEN /hpf (0-5)
[2024-01-18] MEDS: Cephalexin 250 MG Capsule 500 MG PO (18:27)
[2024-01-18] MEDS: Phenazopyridine 95 MG Tablet 190 MG PO (18:27)
== END 2024-01-18 18:39 | disposition home or self-care (01) ==
PROVIDERS: Emergency Provider Emergency Medicine; PCP Family Medicine; Visit Provider Emergency Medicine
DX: N30.00 Acute cystitis without hematuria (principal); E11.9 Type 2 diabetes mellitus without complications; E66.9 Obesity, unspecified; Z87.891 Personal history of nicotine dependence
CPT/HCPCS: 81001; 87077; 87086; 87088; 87186; 99283

== ENCOUNTER → 2024-02-19 | Outpatient (CLI) | payer MEDICARE, SELFPAY ==
[2024-02-19 12:48] LABS: Anion Gap 11 (5-15); BUN 23 mg/dL (7-18); BUN/Creat Ratio 17.6 RATIO (10-20); Calcium,Total 9.4 mg/dL (8.5-10.1); Chloride 102 mmol/L (98-107); Creatinine, Serum 1.31 mg/dL (0.55-1.02); EST Glomerular Filtration Rate 42 mL/min (>60); Est Glom Filt Rate - Afr Amer 51 mL/min (>60); Glucose 177 mg/dL (74-106); Potassium 3.3 mmol/L (3.5-5.1); Sodium Level 141 mmol/L (136-145)
== END | disposition home or self-care (01) ==
LOC: MFPLAB 10:39
PROVIDERS: PCP Family Medicine; Visit Provider Family Medicine
DX: E78.5 Hyperlipidemia, unspecified (principal)
CPT/HCPCS: 36415; 80048

== ENCOUNTER → 2024-02-24 | Outpatient (CLI) | payer MEDICARE, SELFPAY | END | disposition home or self-care (01) | PROVIDERS: PCP Family Medicine; Visit Provider Physician Assistant | DX: R30.0 Dysuria (principal) ==

== ENCOUNTER 2024-04-19 17:27 | Emergency (ER) | payer MEDICARE, SELFPAY ==
[2024-04-19 17:28] VITALS: BP 169/73; PULSE 72; RESP 16; TEMP 36.6; O2SAT 94; BMI 32.9
[2024-04-19 17:29] VITALS: BP 163/79; PULSE 79; RESP 16; TEMP 36.4; O2SAT 94
[2024-04-19] MEDS: Phenazopyridine 95 MG Tablet 190 MG PO (17:52)
[2024-04-19] MEDS: Cephalexin 250 MG Capsule 500 MG PO (17:52)
[2024-04-19 18:10] LABS: Mucous, Urine 0 SEEN /hpf (<or=2+)
--- NOTE | 2024-04-19 18:17 | EDS_ITS ---
HPI HPI - Female History of Present Illness Chief Complaint: Complaint Informant: patient Narrative Narrative: 78-year-old female presenting with a 1 day history of dysuria and frequency. Patient states she gets frequent urinary tract infections and over the past of years has become more frequent. She states that she plans on visiting with a urologist about this. She has a history of diabetes. Prior urine cultures have shown E. coli though the last 1 in our computer system shows Klebsiella in January. She states that she has done quite well with Keflex in the past. She states penicillins tend to give her yeast infections. She notes the Pyridium tends to help with her discomfort. She denies fever vomiting flank pain. [facility] Medical History Incontinence Chronic neck and back pain Difficulty balancing when standing Knee pain Diarrhea Shoulder pain Hemorrhoids Arthritis DM2 (diabetes mellitus, type 2) Benign essential HTN Allergic rhinitis Home Medications ?Medication ?Instructions ?Recorded ?Last Taken ?Type aspirin 81 mg tablet,delayed 81 mg PO DAILY 11/24/16 Unknown History release chlorthalidone 25 mg tablet 25 mg PO DAILY 05/18/20 Unknown History nebivolol 20 mg tablet (Bystolic) 20 mg PO DAILY 05/18/20 Unknown History sertraline 100 mg tablet 100 mg PO DAILY 05/18/20 Unknown History amlodipine 5 mg tablet 5 mg PO DAILY 05/20/23 Unknown History metformin 1,000 mg tablet 1,000 mg PO BID 05/20/23 Unknown History phenazopyridine 200 mg tablet 200 mg PO TID PRN pain 6 doses #6 02/24/24 Unknown Rx (Pyridium) tabs atorvastatin 40 mg tablet 40 mg PO DAILY 04/19/24 Unknown History brexpiprazole 1 mg tablet (Rexulti) 1 mg PO DAILY 04/19/24 Unknown History cephalexin 500 mg capsule 500 mg PO TID #21 CAPSULES 04/19/24 Unknown Rx phenazopyridine 200 mg tablet 200 mg PO TID #10 tabs 04/19/24 Unknown Rx (Pyridium) Allergy/AdvReac Type Severity Reaction Status Date / Time lisinopril Allergy Shortness Verified 04/19/24 17:27 of breath nickel Allergy Rash Verified 04/19/24 17:27 nitrofurantoin (From Allergy Other Verified 04/19/24 17:27 Macrodantin) prednisolone Allergy Other Verified 04/19/24 17:27 Family History Father Asthma Sister Asthma Surgical History S/P right breast biopsy S/P laparoscopic cholecystectomy S/P hysterectomy S/P D&C (status post dilation and curettage) Social History household members: children Smoking Status: Former smoker alcohol intake: never ROS ROS ED Constitutional Constitutional ED: Denies chills, fever(s) or weight loss Eyes Eyes: Denies change in vision or diplopia ENT ENT ED: Denies ear pain, rhinorrhea or sore throat Cardiovascular Cardiovascular: Denies chest pain, orthopnea, palpitations or racing heartbeat Respiratory/Chest Respiratory/Chest: Denies cough, dyspnea or orthopnea Gastrointestinal Gastrointestinal: Denies abdominal pain, diarrhea, nausea or vomiting Genitourinary Genitourinary ED: Reports dysuria and urinary frequency; Denies hematuria Musculoskeletal Musculoskeletal: Denies arthralgias or myalgias Integumentary Denies abscess or rash Neurologic Neurologic: Denies headache(s) or weakness Psychiatric Psychiatric: Denies anxiety, depression, suicidal ideation or suicidal thoughts Endocrine Endocrinology: Denies polydipsia, polyphagia or polyuria Allergic/Immunologic Allergic/Immunologic ED: Denies mouth swelling, tongue swelling or urticaria EXAM Physical Exam Const Vital Signs: 04/19/24 17:28 04/19/24 17:29 04/19/24 18:20 Temperature 97.9 F 97.6 F L 97.9 F Temperature Source Temporal Temporal Pulse Rate 72 79 72 Respiratory Rate 16 16 16 Blood Pressure 169/73 H 163/79 H 142/71 H Blood Pressure Mean 105 107 94 Pulse Ox 94 94 95 Oxygen Delivery Method Room Air Room Air Positive well nourished and well developed General Appearance ED: well developed HEENT Reports normocephalic, head/scalp atraumatic and moist mucous membranes Eyes PERRL and EOMs intact bilaterally Neck no lymphadenopathy, supple and no JVD Resp normal respiratory effort and clear to auscultation bilaterally Cardio regular rate, regular rhythm and no murmurs GI normal to inspection, nondistended, normoactive bowel sounds and non-tender Palpation: soft Back/Spine no CVA tenderness and normal ROM Extremity normal to inspection General Extremety ED: Negative for edema General Extremity: Negative for edema Neuro oriented x3 and CN's II-XII intact bilaterally Sensorium / Orientation: alert Motor Exam: strength 5/5 throughout Psych mental status grossly normal Mood & Affect: Negative for depressed or tearful Skin no rashes or lesions noted and no wounds MDM MDM MDM Narrative Medical decision making narrative: Urinalysis urine culture will be sent. Patient will be started on Keflex and Pyridium. First doses will be given here in the emergency department as she wishes to fill the prescription at [facility] tomorrow. Patient understands return instructions. She understands to complete the course of the antibiotic. History & Record Review Discussion w/independent historian: Patient Additional record(s) reviewed:: Prior ED visit and Prior labs Lab Data Attestation: I reviewed the patient's lab results. Labs: Laboratory Results - last 24 hr 04/19/24 18:00 Urine Color Yellow Urine Clarity Sl. Cloudy Urine pH 5.0 Ur Specific [place] 1.025 Urine Protein 30 H Urine Glucose (UA) Normal Urine Ketones Negative Urine Occult Blood 25 H Urine Nitrite Negative Urine Bilirubin Negative Urine Urobilinogen 1 H Ur Leukocyte Esterase 500 H Urine RBC 0-5 SEEN Urine WBC 10-25 SEEN Ur Squamous Epith Cells 0-5 SEEN Urine Bacteria 1+ Urine Mucus 0 SEEN Discharge Plan Triage Chief Complaint: Complaint ED Provider: Brayan Bruce Dx/Rx/DC Orders Clinical Impression: Acute cystitis Instructions: ED Cystitis Female Adult Prescriptions: New phenazopyridine [Pyridium] 200 mg tablet 200 mg PO TID Qty: 10 0RF cephalexin 500 mg capsule 500 mg PO TID Qty: 21 0RF No Action sertraline 100 mg tablet 100 mg PO DAILY Bystolic 20 mg tablet 20 mg PO DAILY chlorthalidone 25 mg tablet 25 mg PO DAILY metformin 1,000 mg tablet 1,000 mg PO BID Patient Comments: TAKE 1 TABLET BY MOUTH TWICE DAILY amlodipine 5 mg tablet 5 mg PO DAILY phenazopyridine [Pyridium] 200 mg tablet 200 mg PO TID PRN (Reason: pain) Qty: 6 0RF aspirin 81 MG tablet,delayed release (DR/EC) 81 mg PO DAILY atorvastatin 40 mg tablet 40 mg PO DAILY Rexulti 1 mg tablet 1 mg PO DAILY Primary Care Provider: Rafi Moraes Referrals: Rafi Moraes MD [Primary Care Provider] - Print Language: Qatari Disposition Disposition: Home, Self Care Discharge Date/Time: 04/19/24 18:20
[2024-04-19 18:19] LABS: Color, Urine Yellow (Yellow); Glucose, Dipstick Normal (Normal); Ketone-Dipstick Negative (Negative); Leukocyte Esterase-Dipstick 500 /ul (Negative); Nitrite-Dipstick Negative (Negative); Occult Blood-Urine 25 /ul (Negative); Protein-Dipstick 30 mg/dl (Negative); Specific Gravity, Urine 1.025 (1.002-1.030); Urine Bilirubin Dipstick Negative (Negative); Urine Clarity Sl. Cloudy (Clear); Urine Urobilinogen 1 mg/dl (Normal)
[2024-04-19 18:20] VITALS: BP 142/71; PULSE 72; RESP 16; TEMP 36.6; O2SAT 95
[2024-04-19 18:27] LABS: Bacteria 1+ /hpf (None Seen); Red Blood Cells-Urine 0-5 SEEN /hpf (0-5); Squamous Epithelial Cells - UA 0-5 SEEN /hpf (5-10); White Blood Cells 10-25 SEEN /hpf (0-5)
== END 2024-04-19 18:20 | disposition home or self-care (01) ==
PROVIDERS: Emergency Provider Emergency Medicine; PCP Family Medicine; Visit Provider Emergency Medicine
DX: N30.00 Acute cystitis without hematuria (principal); E11.9 Type 2 diabetes mellitus without complications; Z87.891 Personal history of nicotine dependence
CPT/HCPCS: 81001; 87086; 87088; 99283

== ENCOUNTER → 2024-08-19 | Outpatient (CLI) | payer MEDICARE, SELFPAY ==
[2024-08-19 15:39] LABS: ALB/GLOB Ratio 0.9 RATIO (0.9-2.4); AST(SGOT) 16 U/L (15-37); Alanine Aminotransfer ALT/SGPT 21 U/L (13-56); Albumin, Serum 3.6 g/dL (3.2-5.0); Alkaline Phosphatase 60 U/L (45-117); Anion Gap 11 (5-15); BUN 25 mg/dL (7-18); BUN/Creat Ratio 18.2 RATIO (10-20); Calcium,Total 9.8 mg/dL (8.5-10.1); Chloride 102 mmol/L (98-107); Cholesterol 170 mg/dL (200); Creatinine, Serum 1.37 mg/dL (0.55-1.02); EST Glomerular Filtration Rate 40 mL/min (>60); Est Glom Filt Rate - Afr Amer 48 mL/min (>60); Globulin 4.2 g/dL (2.2-4.2); Glucose 184 mg/dL (74-106); High Density Lipoprotein 43 mg/dL; Potassium 3.6 mmol/L (3.5-5.1); Protein, Total 7.8 g/dL (6.4-8.2); Sodium Level 137 mmol/L (136-145); Triglycerides 253 mg/dL; Very Low Density Lipoprotein 51 mg/dL (5-40)
[2024-08-19 16:13] LABS: Hemoglobin A1c 7.1 % (3.8-5.6)
== END | disposition home or self-care (01) ==
LOC: MFPLAB 11:09
PROVIDERS: PCP Family Medicine; Visit Provider Family Medicine
DX: E11.9 Type 2 diabetes mellitus without complications (principal)
CPT/HCPCS: 36415; 80053; 80061; 83036

== ENCOUNTER → 2024-11-18 | Outpatient (CLI) | payer MEDICARE, SELFPAY ==
[2024-11-18 12:47] LABS: ALB/GLOB Ratio 0.8 RATIO (0.9-2.4); AST(SGOT) 11 U/L (15-37); Alanine Aminotransfer ALT/SGPT 20 U/L (13-56); Albumin, Serum 3.3 g/dL (3.2-5.0); Alkaline Phosphatase 59 U/L (45-117); Anion Gap 9 (5-15); BUN 20 mg/dL (7-18); BUN/Creat Ratio 15.2 RATIO (10-20); Calcium,Total 9.1 mg/dL (8.5-10.1); Chloride 103 mmol/L (98-107); Cholesterol 169 mg/dL (200); Creatinine, Serum 1.32 mg/dL (0.55-1.02); EST Glomerular Filtration Rate 41 mL/min (>60); Est Glom Filt Rate - Afr Amer 50 mL/min (>60); Globulin 4.1 g/dL (2.2-4.2); Glucose 208 mg/dL (74-106); High Density Lipoprotein 46 mg/dL; Potassium 3.7 mmol/L (3.5-5.1); Protein, Total 7.4 g/dL (6.4-8.2); Sodium Level 136 mmol/L (136-145); Triglycerides 270 mg/dL; Very Low Density Lipoprotein 54 mg/dL (5-40)
== END | disposition home or self-care (01) ==
LOC: MFPLAB 10:28
PROVIDERS: PCP Family Medicine; Referring Provider Family Medicine; Visit Provider Family Medicine
DX: E78.5 Hyperlipidemia, unspecified (principal)
CPT/HCPCS: 36415; 80053; 80061

== ENCOUNTER → 2025-02-15 | Outpatient (CLI) | payer MEDICARE, SELFPAY ==
[2025-02-15 18:36] LABS: Uric Acid 8.8 mg/dL (2.6-6.0)
== END | disposition home or self-care (01) ==
LOC: MFPLAB 12:24
PROVIDERS: PCP Family Medicine; Referring Provider Family Medicine; Visit Provider Family Medicine
DX: M10.9 Gout, unspecified (principal)
CPT/HCPCS: 36415; 84550

== ENCOUNTER → 2025-02-25 | Outpatient (CLI) | payer MEDICARE, SELFPAY ==
[2025-02-25 18:36] LABS: Microalbumin:Creatinine Ratio 565.4 mg/g CRE
[2025-02-25 19:05] LABS: Hemoglobin A1c 6.9 % (<=5.6)
[2025-02-25 19:23] LABS: Anion Gap 20 (5-15); BUN 27 mg/dL (4-19); BUN/Creat Ratio 17.5 RATIO (10-20); Calcium,Total 9.2 mg/dL (7.6-11.0); Carbon Dioxide 15.9 mmol/L (21.0-32.0); Chloride 102 mmol/L (98-108); Creatinine, Serum 1.52 mg/dL (0.70-1.20); EST Glomerular Filtration Rate 35 (>60); Glucose 140 mg/dL (70-99); Potassium 3.8 mmol/L (3.3-5.1); Sodium Level 138 mmol/L (133-145)
[2025-02-25 19:58] LABS: Cholesterol 186 mg/dL (<=200); High Density Lipoprotein 45 mg/dL; Low Density Lipoprotein Calc. 91 mg/dL; Triglycerides 250 mg/dL; Very Low Density Lipoprotein 50 mg/dL (5-40); cholesterol:hdl ratio screen 4.16
== END | disposition home or self-care (01) ==
LOC: MFPLAB 15:09
PROVIDERS: PCP Family Medicine; Referring Provider Family Medicine; Visit Provider Family Medicine
DX: Z00.00 Encounter for general adult medical examination without abnormal findings (principal)
CPT/HCPCS: 36415; 80048; 80061; 82043; 82570; 83036

== ENCOUNTER → 2025-06-03 | Outpatient (CLI) | payer MEDICARE, SELFPAY ==
[2025-06-03 12:31] LABS: Hematocrit 39.9 % (37-47); Hemoglobin 13.2 g/dL (12.0-15.0); Mean Corp Hgb Conc 33.1 g/dL (32-36); Mean Corpuscular Volume 86.6 fL (81-99); Mean Platelet Vol. 12.4 fl (6.2-12.0); Platelet Count 301 K/mm3 (150-450); RBC Distribution Width CV 15.2 % (11.6-14.6); RBC Distribution Width SD 48.1 fl (35.1-43.9); Red Blood Count 4.61 M/mm3 (4.2-5.4); White Blood Count 7.6 K/mm3 (4.4-11.0)
[2025-06-03 12:46] LABS: Anion Gap 16 (5-15); BUN 35 mg/dL (4-19); BUN/Creat Ratio 23.4 RATIO (10-20); Calcium,Total 9.2 mg/dL (7.6-11.0); Carbon Dioxide 20.5 mmol/L (21.0-32.0); Chloride 102 mmol/L (98-108); Glucose 184 mg/dL (70-99); Potassium 3.3 mmol/L (3.3-5.1)
--- OUTSIDE RECORDS SUMMARY | 2025-06-03 22:20 | XMS RPT_ITS | CCD ---
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 Rafi Moraes Primary Care Provider [phone] Aleisha, Dr. Mckee Referring Provider ADOLPH Ruiz Attending Provider Aleisha, Dr. Mckee Primary Care Provider Aleisha, Dr. Mckee Referring Provider ADOLPH Joyce Attending Provider Aleisha, Dr. Mckee Primary Care Provider Aleisha, Dr. Mckee Referring Provider ADOLPH Joyce Attending Provider Dr. Rafi Moraes MD Primary Care Provider Aleisha FREED, Dr. Mckee Attending Provider Aleisha FREED, Dr. Mckee Referring Provider Rafi Moraes Attending Unavailable Aleisha, Rafi Primary Care Unavailable Moraes, Rafi Attending Unavailable Moraes, Rafi Referring Unavailable Moraes, Rafi Primary Care Unavailable Moraes, Rafi Referring Unavailable Moraes, Rafi Primary Care Unavailable Moraes, Rafi Attending Unavailable Moraes, Rafi Referring Unavailable Moraes, Rafi Primary Care Unavailable Moraes, Rafi Attending Unavailable Allergies Allergy Classification Reported Allergen(s) Allergy Type Date of Onset Reaction(s) Facility (17 sources) Lisinopril Drug Allergy 2 Shortness of breath [facility] (17 sources) nickel Drug Allergy 2 Rash [facility] (17 sources) Nitrofurantoin Drug Allergy 2 Other [facility] Comment on above: CONFUSED (17 sources) prednisoLONE Drug Allergy 2 Other [facility] Comment on above: CONFUSED AND MEAN (1 source) Lisinopril Drug Allergy 4 [facility] (1 source) nickel Drug Allergy 4 [facility] (1 source) Nitrofurantoin Drug Allergy 4 [facility] (1 source) prednisoLONE Drug Allergy 4 [facility] Medications Current Medications Medication Drug Class(es) Dates Sig (Normalized) Sig (Original) amLODIPine 5 mg oral tablet (11 sources) Dihydropyridine Calcium Channel Citlali Start: 05-20-2023 take 1 tablet by mouth once daily Amlodipine 5 mg tablet Active 5 mg PO DAILY May 20, 2023 12:00am aspirin 81 mg delayed release oral tablet (17 sources) Platelet Aggregation Inhibitor, Nonsteroidal Anti-inflammatory Drug Start: 11-24-2016 take 1 tablet by mouth once daily Aspirin 81 MG tablet,delayed release (DR/EC) Active 81 mg PO DAILY November 24, 2016 1:00am atorvastatin 40 mg oral tablet (19 sources) HMG-CoA Reductase Inhibitor Start: 04-19-2024 take 1 tablet by mouth once daily Atorvastatin 40 mg tablet Active 40 mg PO DAILY April 19, 2024 12:00am Start: 11-24-2016 End: 04-19-2024 take 4 tablets by mouth once daily Atorvastatin 10 MG tablet Discontinued 40 mg PO DAILY November 24, 2016 1:00am April 19, 2024 5:34pm Start: 11-24-2016 take 40 mg by mouth once daily Atorvastatin Active 40 MG PO DAILY November 24, 2016 1:00am brexpiprazole 1 mg oral tablet (2 sources) Atypical Antipsychotic Start: 04-19-2024 take 1 tablet by mouth once daily Brexpiprazole (Brexpiprazole 1 Mg Tablet) 1 mg tablet Active 1 mg PO DAILY April 19, 2024 12:00am chlorthalidone 25 mg oral tablet (17 sources) Thiazide-like Diuretic Start: 05-18-2020 take 1 tablet by mouth once daily Chlorthalidone 25 mg tablet Active 25 mg PO DAILY May 18, 2020 12:00am metFORMIN hydrochloride 1000 mg oral tablet (11 sources) Biguanide Start: 05-20-2023 take 1 tablet by mouth twice daily Metformin 1,000 mg tablet Active 1000 mg PO TWICE A DAY May 20, 2023 12:00am nebivolol 20 mg oral tablet (17 sources) Start: 05-18-2020 take 1 tablet by mouth once daily Nebivolol (Bystolic) 20 mg tablet Active 20 mg PO DAILY May 18, 2020 12:00am phenazopyridine hydrochloride 200 mg oral tablet (20 sources) Start: 04-19-2024 take 1 tablet by mouth three times daily Phenazopyridine (Pyridium) 200 mg tablet Active 200 mg PO THREE TIMES A DAY April 19, 2024 12:00am Start: 01-18-2024 End: 02-24-2024 take 1 tablet by mouth three times daily Phenazopyridine (Pyridium) 200 mg tablet Active 200 mg PO THREE TIMES A DAY April 19, 2024 12:00am Start: 10-04-2023 End: 02-24-2024 take 1 tablet by mouth twice daily as needed for pain Phenazopyridine (Pyridium) 200 mg tablet Discontinued 200 mg PO TWICE DAILY NEEDED as needed for Pain October 04, 2023 12:00am February 24, 2024 4:36pm Start: 07-21-2022 End: 05-20-2023 take 1 tablet by mouth three times daily Phenazopyridine (Pyridium) 200 mg tablet Discontinued 200 mg PO THREE TIMES A DAY July 21, 2022 12:00am May 20, 2023 3:24pm sertraline 100 mg oral tablet (17 sources) Serotonin Reuptake Inhibitor Start: 05-18-2020 take 1 tablet by mouth once daily Sertraline 100 mg tablet Active 100 mg PO DAILY May 18, 2020 12:00am Completed/Discontinued Medications Medication Drug Class(es) Dates Sig (Normalized) Sig (Original) acetaminophen 325 mg / HYDROcodone bitartrate 5 mg oral tablet (17 sources) Opioid Agonist Start: 04-27-2019 End: 04-29-2019 Hydrocodone-Acetami nophen 1 TABLET tablet Discontinued 1 {tbl} PO EVERY 4 HOURS NEEDED as needed for Pain 7 2 April 27, 2019 12:00am April 28, 2019 12:00am April 29, 2019 12:06am Start: 04-27-2019 End: 04-29-2019 take 1 tablet by mouth every four hours as needed Hydrocodone-Acetaminophen Discontinued 1 TABLET PO EVERY 4 HOURS NEEDED 7 2 April 27, 2019 12:00am April 29, 2019 12:06am acetaminophen 325 mg / oxyCODONE hydrochloride 5 mg oral tablet (10 sources) Opioid Agonist Start: 07-03-2023 End: 02-24-2024 Oxycodone-Acetaminophen (Percocet) 5-325 mg tablet Discontinued 1 {tbl} PO Q8H as needed for pain 10 3 July 03, 2023 February 24, 2024 4:36pm allopurinol 100 mg oral tablet (17 sources) Xanthine Oxidase Inhibitor Start: 07-21-2022 End: 05-20-2023 take 1 tablet by mouth once daily Allopurinol 100 mg tablet Discontinued 100 mg PO DAILY July 21, 2022 12:00am May 20, 2023 3:24pm cephalexin 500 mg oral capsule (11 sources) Cephalosporin Antibacterial Start: 01-18-2024 End: 04-19-2024 take 1 capsule by mouth three times daily Cephalexin 500 mg capsule Discontinued 500 mg PO THREE TIMES A DAY February 24, 2024 12:00am April 19, 2024 5:34pm glimepiride 2 mg oral tablet (17 sources) Sulfonylurea Start: 07-21-2022 End: 05-20-2023 take 1 tablet by mouth once daily Glimepiride 2 mg tablet Discontinued 2 mg PO DAILY July 21, 2022 12:00am May 20, 2023 3:24pm losartan potassium 100 mg oral tablet (17 sources) Angiotensin 2 Receptor Citlali Start: 07-21-2022 End: 05-20-2023 take 1 tablet by mouth once daily Losartan 100 mg tablet Discontinued 100 mg PO DAILY July 21, 2022 12:00am May 20, 2023 3:24pm meclizine hydrochloride 12.5 mg oral tablet (17 sources) Antiemetic Start: 05-18-2020 End: 05-20-2023 take 1 tablet by mouth three times daily as needed for dizziness Meclizine 12.5 mg tablet Discontinued 12.5 mg PO 3 TIMES DAILY NEEDED as needed for Dizziness May 18, 2020 12:00am May 20, 2023 3:24pm meloxicam 15 mg oral tablet (11 sources) Nonsteroidal Anti-inflammator y Drug Start: 05-20-2023 End: 07-03-2023 Meloxicam 15 mg tablet Discontinued 15 mg PO May 20, 2023 12:00am July 03, 2023 6:03pm sulfamethoxazole 800 mg / trimethoprim 160 mg oral tablet (20 sources) Dihydrofolate Reductase Inhibitor Antibacterial, Sulfonamide Antimicrobial Start: 11-12-2023 End: 02-24-2024 take 1 tablet by mouth twice daily Sulfamethoxazole-Trimetho prim Discontinued 1 TABLET PO TWICE A DAY December 14, 2023 12:07am February 24, 2024 4:37pm Start: 10-04-2023 End: 02-24-2024 Sulfamethoxazole-Trimethopri m 800-160 mg tablet Discontinued 1 {tbl} PO TWICE A DAY December 14, 2023 12:07am February 24, 2024 4:37pm Start: 05-20-2023 End: 07-03-2023 Sulfamethoxazole-Trimethopri m (Bactrim Ds) 800-160 mg tablet Discontinued 1 {tbl} PO Q12H May 20, 2023 12:00am July 03, 2023 6:04pm Start: 07-21-2022 End: 05-20-2023 Sulfamethoxazole-Trimethopri m (Bactrim Ds) 800-160 mg tablet Discontinued 1 {tbl} PO TWICE A DAY January 23, 2023 1:00am May 20, 2023 3:24pm Start: 07-21-2022 End: 05-20-2023 take 1 tablet by mouth twice daily Sulfamethoxazole-Trimethoprim Discontinu ed 1 TABLET PO TWICE A DAY July 21, 2022 12:00am May 20, 2023 3:24pm Problems Problem Classification Problem Date Documented Da te Episodic/Chronic Diabetes mellitus without complication (18 sources) Type 2 diabetes mellitus; Translations: [Type 2 diabetes mellitus without complications] Onset: 09-14-2024 01-23-2023 Chronic Disorders of lipid metabolism (1 source) Hyperlipidemia, unspecified; Translations: [Hyperlipidemia, unspecified] Onset: 12-15-2024 Chronic E Codes: Fall (10 sources) Fall; Translations: [Unspecified fall, initial encounter] 07-03-2023 Episodic Essential hypertension (17 sources) Benign essential hypertension; Translations: [Essential (primary) hypertension] 05-18-2020 Chronic Genitourinary symptoms and ill-defined conditions (11 sources) Incontinence; Translations: [Unspecified urinary incontinence] 05-20-2023 Chronic Genitourinary symptoms and ill-defined conditions (20 sources) Dysuria; Translations: [Dysuria] 01-23-2023 Episodic Gout and other crystal arthropathies (1 source) Gout, unspecified; Translations: [Gout, unspecified] Onset: 02-24-2025 Chronic Hemorrhoids (11 sources) Hemorrhoids; Translations: [Unspecified hemorrhoids] 05-20-2023 Episodic Osteoarthritis (11 sources) Arthritis; Translations: [Unspecified osteoarthritis, unspecified site] 05-20-2023 Chronic Other fractures (10 sources) Fracture of rib; Translations: [Fracture of one rib, unspecified side, initial encounter for closed fracture] 07-03-2023 Episodic Other gastrointestinal disorders (11 sources) Diarrhea; Translations: [Diarrhea, unspecified] 05-20-2023 Episodic Other nervous system disorders (11 sources) Difficulty balancing when standing; Translations: [Other abnormalities of gait and mobility] 05-20-2023 Episodic Other non-traumatic joint disorders (11 sources) Shoulder pain; Translations: [Pain in unspecified shoulder] 05-20-2023 Episodic Other non-traumatic joint disorders (11 sources) Pain in unspecified knee; Translations: [Knee pain] 05-20-2023 Episodic Other upper respiratory disease (17 sources) Allergic rhinitis; Translations: [Allergic rhinitis, unspecified] 05-18-2020 Chronic Spondylosis; intervertebral disc disorders; other back problems (11 sources) Chronic pain; Translations: [Cervicalgia] 05-20-2023 Episodic Sprains and strains (10 sources) Sprain of wrist; Translations: [Unspecified sprain of left wrist, initial encounter] 07-03-2023 Episodic Urinary tract infections (20 sources) Acute urinary tract infection; Translations: [Urinary tract infection, site not specified] 01-23-2023 Episodic Results Test Name Value Interpretation Reference Range Facility Microalb:Creat Ratio,Random URon 05-20-2025 MALB:CREAT 56.5 mg/g CRE [facility] Comment on above: Result Comment: AMENDED REPORT 05/20/25 0819 MALB:CREAT previously reported as: 565.4 mg/g CRE Performed By: #### L 502.0250, L500.2500, L500.4100, L501.9985 #### [facility] [address], [address] Albumin DL <= 20 mg/L (U) [M ass/Vol]Ordered By: Rafi Moraes on 02-25-2025 Urine Random Microalbumin 147.0 mg/L NO RANGE E [facility] Anion gap in Serum or Plasma Ordered By: Rafi Moraes on 02-25-2025 Anion gap [Moles/Vol] 20 mmol/L High 5- [facility] BUN/creatinine ratioOrdered By: Rafi Moraes on 02-25-2025 Urea nitrogen/Creatinine [Mass ratio] 17.5 mg/mg - [facility] Basic Metabolic Profile (BMP )on 02-25-2025 BUN/CRE 17.5 RATIO Normal 09-20 [facility] Comment on above: Performed By: #### L 502.0250, L500.2500, L500.4100, [id number] #### [facility] [address] [place], [address] Calcium [Mass/Vol] 9.2 mg/dL Normal 7.6-11.0 [facility] Comment on above: Performed By: #### L 502.0250, L500.2500, L500.4100, [id number] #### [facility] [address] [place], [address] Chloride [Moles/Vol] 102 mmol/L Normal 98-108 [facility] Comment on above: Performed By: #### L 502.0250, L500.2500, L500.4100, [id number] #### [facility] [address] [place], [address] CO2 [Moles/Vol] 15.9 mmol/L Low 21.0-32.0 [facility] Comment on above: Performed By: #### L 502.0250, L500.2500, L500.4100, [id number] #### [facility] [address] [place], [address] Creatinine [Mass/Vol] 1.52 mg/dL High 0.70-1.20 [facility] Comment on above: Performed By: #### L 502.0250, L500.2500, L500.4100, [id number] #### [facility] [address] [place], [address] GAP 20 High 5-15 [facility] Comment on above: Performed By: #### L 502.0250, L500.2500, L500.4100, [id number] #### [facility] [address] [place], [address] GFR/1.73 sq M.predicted among non-blacks MDRD (S/P/Bld) [Vol rate/Area] 35 mL/min/{1.73_m2} Low >60 [facility] Comment on above: Result Comment: mL/m in/1.73m2 CKD-EPI Creatinine Equation (2020) Performed By: #### L 502.0250, L500.2500, L500.4100, [id number] #### [facility] [address] [place], [address] Glucose [Mass/Vol] 140 mg/dL High 70-99 [facility] Comment on above: Performed By: #### L 502.0250, L500.2500, L500.4100, [id number] #### [facility] [address] [place], [address] Potassium [Moles/Vol] 3.8 mmol/L Normal 3.3-5.1 [facility] Comment on above: Performed By: #### L 502.0250, L500.2500, L500.4100, [id number] #### [facility] [address] [place], [address] Sodium [Moles/Vol] 138 mmol/L Normal 133-145 [facility] Comment on above: Performed By: #### L 502.0250, L500.2500, L500.4100, [id number] #### [facility] [address] [place], [address] Urea nitrogen [Mass/Vol] 27 mg/dL High 4-19 [facility] Comment on above: Performed By: #### L 502.0250, L500.2500, L500.4100, [id number] #### [facility] [address] [place], [address] Calculated very low density lipoprotein (VLDL) cholesterol measurementOrdered By: Rafi Moraes on 02-25-2025 VLDL Cholesterol 50 mg/dL High 5-40 [facility] Carbon dioxide, total [Moles /volume] in Central venous bloodOrdered By: Rafi Moraes on 02-25-2025 CO2 [Moles/Vol] 15.9 mmol/L Low 21.0-32.0 [facility] Chloride assayOrdered By: Adolph Moraes on 02-25-2025 Chloride [Moles/Vol] 102 mmol/L 98-108 [facility] Creatinine Unsp time (U) [Ma ss/Vol]Ordered By: Rafi Moraes on 02-25-2025 Creatinine (U) [Mass/Vol] 260.00 mg/dL High 28.00-21 7.00 [facility] GFR/1.73 sq M.predicted cassia g non-blacks MDRD (S/P/Bld) [Vol rate/Area]Ordered By: Rafi Moraes on 02-25-2025 Estimated GFR (MDRD) Non-Af Amer 35 Low >60 [facility] Comment on above: mL/min/1.73m2 CKD-EP I Creatinine Equation (2020) Hemoglobin A1con 02-25-2025 HbA1c (Bld) [Mass fraction] 6.9 % Normal <=5.6 [facility] Comment on above: Performed By: #### L 502.0250, L500.2500, L500.4100, [id number] #### [facility] [address] [place], [address] Hemoglobin A1c percentageOrd ered By: Rafi Moraes on 02-25-2025 HbA1c (Bld) [Mass fraction] 6.9 % >5.7 [facility] LDL calc ser/plasOrdered By: Rafi Moraes on 02-25-2025 LDL Cholesterol, Calculated 91 mg/dL [facility] Comment on above: Poldftnrae=817-902 m g/dL & Higher Nudx=918 mg/dL or greater Lipid Profileon 02-25-2025 CHOL:HDL 4.16 Normal [facility] Comment on above: Performed By: #### L 502.0250, L500.2500, L500.4100, [id number] #### [facility] [address] [place], [address] Cholesterol [Mass/Vol] 186 mg/dL Normal <=200 [facility] Comment on above: Result Comment: Chol esterol level, Desirable <200 mg/dL Borderline high cholesterol 200-239 mg/dL High cholesterol >=240 mg/dL Recommendations of the NCEP Adult Treatment Panel for the following risk-cutoff thresholds for the [place] population. Performed By: #### L 502.0250, L500.2500, L500.4100, [id number] #### [facility] [address] [place], [address] Cholesterol in HDL [Mass/Vol] 45 mg/dL Normal [facility] Comment on above: Result Comment: Celeste onal Cholesterol Education Program (NCEP) guidelines: <40 mg/dL: Low HDL-cholesterol (major risk factor for CHD) >= 60 mg/dL: High HDL-cholesterol (negative risk factor for CHD) HDL-cholesterol is affected by a number of factors, e.g. smoking, exercise, hormones, sex and age. Performed By: #### L 502.0250, L500.2500, L500.4100, [id number] #### [facility] [address] [place], [address] Cholesterol in LDL [Mass/Vol] 91 mg/dL Normal [facility] Comment on above: Result Comment: Bord zepyoa=455-562 mg/dL Higher Qyve=493 mg/dL or greater Performed By: #### L 502.0250, L500.2500, L500.4100, [id number] #### [facility] [address] [place], [address] Cholesterol in VLDL [Mass/Vol] 50 mg/dL High 5-40 [facility] Comment on above: Performed By: #### L 502.0250, L500.2500, L500.4100, [id number] #### [facility] [address] [place], [address] Triglyceride [Mass/Vol] 250 mg/dL High [facility] Comment on above: Result Comment: The drugs N-Acetylcysteine and Metamizole may falsely depress this assay. Normal range: <150 mg/dL Borderline High: 150-199 mg/dL High: 200-499 mg/dL Very High: >500 mg/dL Performed By: #### L 502.0250, L500.2500, L500.4100, [id number] #### [facility] [address] [place], [address] Microalbumin/creat ratio urO rdered By: Rafi Moraes on 02-25-2025 Urine Microalbumin/Creatinine Ratio 565.4 mg/g CRE [facility] Potassium (Unsp spec) [Mass/ Vol]Ordered By: Rafi Moraes on 02-25-2025 Potassium [Moles/Vol] 3.8 mmol/L 3.3-5.1 [facility] Screening total cholesterol/ high density lipoprotein (HDL) cholesterol ratioOrdered By: Rafi Moraes on 02-25-2025 Cholesterol.total/Cholest lamont in HDL [Mass ratio] 4.16 {ratio} [facility] Serum creatinine measurement (mass/volume)Ordered By: Rafi Moraes on 02-25-2025 Creatinine [Mass/Vol] 1.52 mg/dL High 0.70-1.20 [facility] Serum glucose measurement (m ass/volume)Ordered By: Rafi Moraes on 02-25-2025 Glucose [Mass/Vol] 140 mg/dL High 70-99 [facility] Serum or plasma calcium laurita urement (mass/volume)Ordered By: Rafi Moraes on 02-25-2025 Calcium [Mass/Vol] 9.2 mg/dL 7.6-11.0 [facility] Serum or plasma cholesterol in HDL measurement (mass/volume)Ordered By: Rafi Moraes on 02-25-2025 Cholesterol in HDL [Mass/Vol] 45 mg/dL >40 [facility] Comment on above: National Cholesterol Education Program (NCEP) guidelines:<40 mg/dL: Low HDL-cholesterol (major risk factor for CHD)>= 60 mg/dL: High HDL-cholesterol (negative risk factor for CHD)HDL-cholesterol is affected by a number of factors, e.g. smoking, exercise, hormones, sex and age. Serum or plasma cholesterol measurement (mass/volume)Ordered By: Rafi Moraes on 02-25-2025 Cholesterol [Mass/Vol] 186 mg/dL <201 [facility] Comment on above: Cholesterol level, D esirable <200 mg/dLBorderline high cholesterol 200-239 mg/dLHigh cholesterol >=240 mg/dLRecommendations of the NCEP Adult Treatment Panel for the following risk-cutoff thresholds for the [place] population. Serum or plasma urea nitroge n measurement (mass/volume)Ordered By: Rafi Moraes on 02-25-2025 Urea nitrogen [Mass/Vol] 27 mg/dL High 4-19 [facility] Sodium levelOrdered By: Rafi Moraes on 02-25-2025 Sodium [Moles/Vol] 138 mmol/L 133-145 [facility] Triglycerides measurementOrd ered By: Rafi Moraes on 02-25-2025 Triglyceride [Mass/Vol] 250 mg/dL High <199 [facility] Comment on above: The drugs N-Acetylcy steine and Metamizole may falsely depress this assay. Normal range: <150 mg/dLBorderline High: 150-199 mg/dLHigh: 200-499 mg/dLVery High: >500 mg/dL Serum or plasma uric acid me asurement (mass/volume)Ordered By: Rafi Moraes on 02-15-2025 Urate [Mass/Vol] 8.8 mg/dL High 2.6-6.0 [facility] Comment on above: The drugs N-Acetylcy steine and Metamizole may falsely depress this assay. Uric Acidon 02-15-2025 URIC 8.8 mg/dL High 2.6-6.0 [facility] Comment on above: Result Comment: The drugs N-Acetylcysteine and Metamizole may falsely depress this assay. Performed By: #### L 501.1400 #### [facility] [address] [place], [address] Albumin to globulin ratioOrd ered By: Rafi Moraes on 11-18-2024 Albumin/Globulin [Mass ratio] 0.8 {ratio} Low 0.9-2.4 [facility] Bilirubin, totalOrdered By: Rafi Moraes on 11-18-2024 Bilirubin [Mass/Vol] 0.50 mg/dL 0.20-1.00 [facility] Comment on above: For patients on eltr ombopag therapy, use of Dimension Crossnore TBIL is not recommended. Blood urea nitrogen (BUN)/cr eatinine ratioOrdered By: Rafi Moraes on 11-18-2024 Urea nitrogen/Creatinine [Mass ratio] 15.2 mg/mg 10-20 [facility] Carbon dioxide measurementOr dered By: Rafi Moraes on 11-18-2024 CO2 [Moles/Vol] 24.0 mmol/L 21.0-32.0 [facility] Chloride measurementOrdered By: Rafi Moraes on 11-18-2024 Chloride [Moles/Vol] 103 mmol/L 98-107 [facility] Comprehensive Metabolic Prof ilon 11-18-2024 Albumin [Mass/Vol] 3.3 g/dL Normal 3.2-5.0 [facility] Comment on above: Performed By: #### L 500.4050, L500.4100 #### [facility] [address] [place], [address] Albumin/Globulin [Mass ratio] 0.8 {ratio} Low 0.9-2.4 [facility] Comment on above: Performed By: #### L 500.4050, L500.4100 #### [facility] [address] [place], [address] ALK P 59 U/L Normal 45-117 [facility] Comment on above: Performed By: #### L 500.4050, L500.4100 #### [facility] [address] [place], [address] ALT [Catalytic activity/Vol] 20 U/L Normal 13-56 [facility] Comment on above: Performed By: #### L 500.4050, L500.4100 #### [facility] [address] [place], [address] AST [Catalytic activity/Vol] 11 U/L Low 15-37 [facility] Comment on above: Performed By: #### L 500.4050, L500.4100 #### [facility] [address] [place], [address] Bilirubin [Mass/Vol] 0.50 mg/dL Normal 0.20-1.00 [facility] Comment on above: Result Comment: For patients on eltrombopag therapy, use of Dimension Cross[place] TBIL is not recommended. Performed By: #### L 500.4050, L500.4100 #### [facility] [address] [place], [address] BUN/CRE 15.2 RATIO Normal 10-20 [facility] Comment on above: Performed By: #### L 500.4050, L500.4100 #### [facility] [address] [place], [address] CA,Total 9.1 mg/dL Normal 8.5-10.1 [facility] Comment on above: Performed By: #### L 500.4050, L500.4100 #### [facility] [address] [place], [address] Chloride [Moles/Vol] 103 mmol/L Normal 98-107 [facility] Comment on above: Performed By: #### L 500.4050, L500.4100 #### [facility] [address] [place], [address] CO2 [Moles/Vol] 24.0 mmol/L Normal 21.0-32.0 [facility] Comment on above: Performed By: #### L 500.4050, L500.4100 #### [facility] [address] [place], [address] Creatinine [Mass/Vol] 1.32 mg/dL High 0.55-1.02 [facility] Comment on above: Result Comment: The validity of the calculated GFR GFRAA in patients over 70 years has not been determined. Clinical correlation is essential. Performed By: #### L 500.4050, L500.4100 #### [facility] [address] [place], [address] EST GFR - AA 50 mL/min Low >60 [facility] Comment on above: Result Comment: Afri can Peruvian GFR Calc Performed By: #### L 500.4050, L500.4100 #### [facility] [address] [place], [address] GAP 9 Normal 5-15 [facility] Comment on above: Performed By: #### L 500.4050, L500.4100 #### [facility] [address] [place], [address] GFR/1.73 sq M.predicted among non-blacks MDRD (S/P/Bld) [Vol rate/Area] 41 mL/min/{1.73_m2} Low >60 [facility] Comment on above: Result Comment: Non- GFR Calc Performed By: #### L [id number], L500.4100 #### [facility] [address] [place], [address] Globulin (S) [Mass/Vol] 4.1 g/dL Normal 2.2-4.2 [facility] Comment on above: Performed By: #### L [id number], [id number] #### [facility] [address] [place], [address] Glucose [Mass/Vol] 208 mg/dL High 74-106 [facility] Comment on above: Result Comment: Gluc ose result greater than or equal to 200 mg/dL suggests DIABETES MELLITUS per A.D.A. criteria. Performed By: #### L [id number], L500.4100 #### [facility] [address] [place], [address] Potassium [Moles/Vol] 3.7 mmol/L Normal 3.5-5.1 [facility] Comment on above: Performed By: #### L [id number], [id number] #### [facility] [address] [place], [address] Sodium [Moles/Vol] 136 mmol/L Normal 136-145 [facility] Comment on above: Performed By: #### L 500.4050, L500.4100 #### [facility] [address] [place], [address] T PROT 7.4 g/dL Normal 6.4-8.2 [facility] Comment on above: Performed By: #### L 500.4050, L500.4100 #### [facility] [address] [place], [address] Urea nitrogen [Mass/Vol] 20 mg/dL High 7-18 [facility] Comment on above: Performed By: #### L 500.4050, L500.4100 #### [facility] [address] [place], [address] Estimated glomerular filtrat ion rate (GFR) AmericanOrdered By: Rafi Moraes on 11-18-2024 Estimated GFR (MDRD) Amer 50 mL/min Low >60 [facility] Comment on above: GFR Calc Glomerular filtration rate ( GFR) estimationOrdered By: Rafi Moraes on 11-18-2024 Estimated GFR (MDRD) Non-Af Amer 41 mL/min Low >60 [facility] Comment on above: Non- GFR Calc Glucose measurementOrdered B y: Rafi Moraes on 11-18-2024 Glucose [Mass/Vol] 208 mg/dL High 74-106 [facility] Comment on above: Glucose result great er than or equal to 200 mg/dLsuggests DIABETES MELLITUS per A.D.A. criteria. High density lipoprotein (HD L) measurementOrdered By: Rafi Moraes on 11-18-2024 Cholesterol in HDL [Mass/Vol] 46 mg/dL >40 [facility] Comment on above: The drugs N-Acetylcy steine and Metamizole may falsely depress this assay. Reference Range HDL <40 mg/dL Low HDL Cholesterol HDL >or= 60 mg/dL High HDL Cholesterol Laboratory - Chemistry and C hemistry - challengeOrdered By: Rafi Moraes on 11-18-2024 AST [Catalytic activity/Vol] 11 U/L Low 15-37 [facility] Lipid Profileon 11-18-2024 Cholesterol [Mass/Vol] 169 mg/dL Normal 200 [facility] Comment on above: Result Comment: <200 mg/dL Desirable 200-240 mg/dL Borderline >240 mg/dL High Risk Performed By: #### L 500.4050, L500.4100 #### [facility] [address] [place], [address] Cholesterol in HDL [Mass/Vol] 46 mg/dL Normal [facility] Comment on above: Result Comment: The drugs N-Acetylcysteine and Metamizole may falsely depress this assay. Reference Range HDL <40 mg/dL Low HDL Cholesterol HDL >or= 60 mg/dL High HDL Cholesterol Performed By: #### L 500.4050, L500.4100 #### [facility] [address] [place], [address] Cholesterol in LDL [Mass/Vol] 69 mg/dL Normal 0-130 [facility] Comment on above: Performed By: #### L [id number], [id number] #### [facility] [address] [place], [address] Cholesterol in VLDL [Mass/Vol] 54 mg/dL High 5-40 [facility] Comment on above: Performed By: #### L [id number], [id number] #### [facility] [address] [place], [address] Triglyceride [Mass/Vol] 270 mg/dL High [facility] Comment on above: Result Comment: The drugs N-Acetylcysteine and Metamizole may falsely depress this assay. Serum Triglycerides Reference Interval Normal <150 mg/dL Borderline high 150 - 199 mg/dL High 200 - 499 mg/dL Very High > or = 500 mg/dL Performed By: #### L 500.4050, L500.4100 #### [facility] [address] [place], [address] Low density lipoprotein (LDL ) cholesterol measurementOrdered By: Rafi Moraes on 11-18-2024 Cholesterol in LDL [Mass/Vol] 69 mg/dL 0-130 [facility] Potassium measurementOrdered By: Rafi Moraes on 11-18-2024 Potassium [Moles/Vol] 3.7 mmol/L 3.5-5.1 [facility] Serum anion gap measurementO rdered By: Rafi Moraes on 11-18-2024 Anion gap [Moles/Vol] 9 mmol/L 5-15 [facility] Serum globulin measurementOr dered By: Rafi Moraes on 11-18-2024 Globulin (S) [Mass/Vol] 4.1 g/dL 2.2-4.2 [facility] Serum or plasma alanine spencer otransferase (ALT) measurementOrdered By: Rafi Moraes on 11-18-2024 ALT [Catalytic activity/Vol] 20 U/L 13-56 [facility] Serum or plasma albumin laurita urement (mass/volume)Ordered By: Rafi Moraes on 11-18-2024 Albumin [Mass/Vol] 3.3 g/dL 3.2-5.0 [facility] Serum or plasma alkaline samm sphatase measurementOrdered By: Rafi Moraes on 11-18-2024 ALP [Catalytic activity/Vol] 59 U/L 45-117 [facility] Serum or plasma calcium laurita urement (mass/volume)Ordered By: Rafi Moraes on 11-18-2024 Calcium [Mass/Vol] 9.1 mg/dL 8.5-10.1 [facility] Serum or plasma cholesterol measurement (mass/volume)Ordered By: Rafi Moraes on 11-18-2024 Cholesterol [Mass/Vol] 169 mg/dL <200 [facility] Comment on above: <200 mg/dL Desirable 200-240 mg/dL Borderline >240 mg/dL High Risk Serum or plasma creatinine m easurement (mass/volume)Ordered By: Rafi Moraes on 11-18-2024 Creatinine [Mass/Vol] 1.32 mg/dL High 0.55-1.02 [facility] Comment on above: The validity of the calculated GFR & GFRAA in patients over 70 years has not been determined. Clinical correlation is essential. Serum or plasma urea nitroge n measurement (mass/volume)Ordered By: Rafi Moraes on 11-18-2024 Urea nitrogen [Mass/Vol] 20 mg/dL High 7-18 [facility] Sodium levelOrdered By: Rafi Moraes on 11-18-2024 Sodium [Moles/Vol] 136 mmol/L 136-145 [facility] Total proteinOrdered By: Aster Moraes on 11-18-2024 Protein [Mass/Vol] 7.4 g/dL 6.4-8.2 [facility] Triglycerides measurementOrd ered By: Rafi Moraes on 11-18-2024 Triglyceride [Mass/Vol] 270 mg/dL High <199 [facility] Comment on above: The drugs N-Acetylcy steine and Metamizole may falsely depress this assay.Serum Triglycerides Reference Interval Normal <150 mg/dL Borderline high 150 - 199 mg/dL High 200 - 499 mg/dL Very High > or = 500 mg/dL Very low density lipoprotein (VLDL) cholesterol measurementOrdered By: Rafi Moraes on 11-18-2024 VLDL Cholesterol 54 mg/dL High 5-40 [facility] Comprehensive Metabolic Prof ilon 08-19-2024 Albumin [Mass/Vol] 3.6 g/dL Normal 3.2-5.0 [facility] Comment on above: Performed By: #### L 500.4050, L500.4100, [id number] #### [facility] [address] [place], [address] Albumin/Globulin [Mass ratio] 0.9 {ratio} Normal 0.9-2.4 [facility] Comment on above: Performed By: #### L [id number], L500.4100, [id number] #### [facility] [address] [place], [address] ALK P 60 U/L Normal 45-117 [facility] Comment on above: Performed By: #### L [id number], L500.4100, [id number] #### [facility] [address] [place], [address] ALT [Catalytic activity/Vol] 21 U/L Normal 13-56 [facility] Comment on above: Performed By: #### L [id number], L500.4100, [id number] #### [facility] [address] [place], [address] AST [Catalytic activity/Vol] 16 U/L Normal 15-37 [facility] Comment on above: Performed By: #### L [id number], L500.4100, [id number] #### [facility] [address] [place], [address] Bilirubin [Mass/Vol] 0.50 mg/dL Normal 0.20-1.00 [facility] Comment on above: Result Comment: For patients on eltrombopag therapy, use of Dimension Crossnore TBIL is not recommended. Performed By: #### L 500.4050, L500.4100, [id number] #### [facility] [address] [place], [address] BUN/CRE 18.2 RATIO Normal 10-20 [facility] Comment on above: Performed By: #### L 500.4050, L500.4100, [id number] #### [facility] [address] [place], [address] CA,Total 9.8 mg/dL Normal 8.5-10.1 [facility] Comment on above: Performed By: #### L 500.4050, [id number], [id number] #### [facility] [address] [place], [address] Chloride [Moles/Vol] 102 mmol/L Normal 98-107 [facility] Comment on above: Performed By: #### L 500.4050, [id number], [id number] #### [facility] [address] [place], [address] CO2 [Moles/Vol] 24.0 mmol/L Normal 21.0-32.0 [facility] Comment on above: Performed By: #### L 500.4050, [id number], [id number] #### [facility] [address] [place], [address] Creatinine [Mass/Vol] 1.37 mg/dL High 0.55-1.02 [facility] Comment on above: Result Comment: The validity of the calculated GFR GFRAA in patients over 70 years has not been determined. Clinical correlation is essential. Performed By: #### L 500.4050, L500.4100, [id number] #### [facility] [address] [place], [address] EST GFR - AA 48 mL/min Low >60 [facility] Comment on above: Result Comment: Afri can Peruvian GFR Calc Performed By: #### L [id number], L500.4100, [id number] #### [facility] [address] [place], [address] GAP 11 Normal 5-15 [facility] Comment on above: Performed By: #### L [id number], [id number], [id number] #### [facility] [address] [place], [address] GFR/1.73 sq M.predicted among non-blacks MDRD (S/P/Bld) [Vol rate/Area] 40 mL/min/{1.73_m2} Low >60 [facility] Comment on above: Result Comment: Non- GFR Calc Performed By: #### L 500.4050, L500.4100, [id number] #### [facility] [address] [place], [address] Globulin (S) [Mass/Vol] 4.2 g/dL Normal 2.2-4.2 [facility] Comment on above: Performed By: #### L 500.4050, L500.4100, [id number] #### [facility] [address] [place], [address] Glucose [Mass/Vol] 184 mg/dL High 74-106 [facility] Comment on above: Result Comment: Fast ing Glucose result greater than or equal to 126 mg/dL suggests DIABETES MELLITUS per A.D.A. criteria. Performed By: #### L 500.4050, L500.4100, [id number] #### [facility] [address] [place], [address] Potassium [Moles/Vol] 3.6 mmol/L Normal 3.5-5.1 [facility] Comment on above: Performed By: #### L 500.4050, L500.4100, [id number] #### [facility] [address] [place], [address] Sodium [Moles/Vol] 137 mmol/L Normal 136-145 [facility] Comment on above: Performed By: #### L 500.4050, [id number], [id number] #### [facility] [address] [place], [address] T PROT 7.8 g/dL Normal 6.4-8.2 [facility] Comment on above: Performed By: #### L 500.4050, L500.4100, [id number] #### [facility] [address] [place], [address] Urea nitrogen [Mass/Vol] 25 mg/dL High 06-18 [facility] Comment on above: Performed By: #### L 500.4050, [id number], [id number] #### [facility] [address] [place], [address] Hemoglobin A1con 08-19-2024 HbA1c (Bld) [Mass fraction] 7.1 % High 3.8-5.6 [facility] Comment on above: Result Comment: Norm al < 5.7 % Prediabetic 5.7 - 6.4 % Diabetic >or= 6.5 % Please note range changes. Performed By: #### L 500.4050, L500.4100, [id number] #### [facility] [address] [place], [address] Lipid Profileon 08-19-2024 Cholesterol [Mass/Vol] 170 mg/dL Normal 200 [facility] Comment on above: Result Comment: <200 mg/dL Desirable 200-240 mg/dL Borderline >240 mg/dL High Risk Performed By: #### L 500.4050, L500.4100, [id number] #### [facility] [address] [place], [address] Cholesterol in HDL [Mass/Vol] 43 mg/dL Normal [facility] Comment on above: Result Comment: The drugs N-Acetylcysteine and Metamizole may falsely depress this assay. Reference Range HDL <40 mg/dL Low HDL Cholesterol HDL >or= 60 mg/dL High HDL Cholesterol Performed By: #### L 500.4050, L500.4100, [id number] #### [facility] [address] [place], [address] Cholesterol in LDL [Mass/Vol] 76 mg/dL Normal 0-130 [facility] Comment on above: Performed By: #### L 500.4050, L500.4100, [id number] #### [facility] [address] [place], [address] Cholesterol in VLDL [Mass/Vol] 51 mg/dL High 5-40 [facility] Comment on above: Performed By: #### L 500.4050, L500.4100, [id number] #### [facility] [address] [place], [address] Triglyceride [Mass/Vol] 253 mg/dL High [facility] Comment on above: Result Comment: The drugs N-Acetylcysteine and Metamizole may falsely depress this assay. Serum Triglycerides Reference Interval Normal <150 mg/dL Borderline high 150 - 199 mg/dL High 200 - 499 mg/dL Very High > or = 500 mg/dL Performed By: #### L 500.4050, L500.4100, [id number] #### [facility] [address] [place], [address] Laboratory - Chemistry and C hemistry - challengeon 02-24-2024 Bilirubin Ql (U) Negative [facility] Glucose Ql (U) Negative [facility] Ketones Ql (U) Large (80+) [facility] pH (U) 5.0 [pH] [facility] Specific gravity (U) [Rel density] 1.025 [facility] Urobilinogen (U) [Mass/Vol] 1 mg/dL [facility] - Hematology and Cell countson 02-24-2024 Hemoglobin Ql (U) Hemolyzed [facility] - Specimen inform ationon 02-24-2024 Clarity (U) Hazy [facility] Color (U) DARK YELLOW [facility] Laboratory - Urinalysison Nitrite Ql (U) Negative [facility] Protein Ql (U) 1+ [facility] No Panel Informationon 02-23 Urine Leukocytes Positive [facility] Urine Non-Hemolyzed Blood Large [facility] Basophil percentageOrdered B y: Rafi Moraes on 02-19-2024 Chloride [Moles/Vol] 102 mmol/L 98-107 [facility] Glucose [Mass/Vol] 177 mg/dL 74-106 [facility] Comment on above: Fasting Glucose resu lt greater than or equal to 126 mg/dL suggests DIABETES MELLITUS per A.D.A. criteria. Potassium [Moles/Vol] 3.3 mmol/L 3.5-5.1 [facility] Sodium [Moles/Vol] 141 mmol/L 136-145 [facility] Laboratory - Chemistry and C hemistry - challengeOrdered By: Rafi Moraes on 02-19-2024 CO2 [Moles/Vol] 28.0 mmol/L 21.0-32.0 [facility] Urea nitrogen/Creatinine [Mass ratio] 17.6 mg/mg - [facility] No Panel InformationOrdered By: Rafi Moraes on 02-19-2024 Estimated GFR (MDRD) Amer 51 mL/min >60 [facility] Comment on above: GFR Calc Estimated GFR (MDRD) Non-Af Amer 42 mL/min >60 [facility] Comment on above: Non- GFR Calc Serum or plasma calcium laurita urement (mass/volume)Ordered By: Rafi Moraes on 02-19-2024 Calcium [Mass/Vol] 9.4 mg/dL 8.5-10.1 [facility] Serum or plasma creatinine m easurement (mass/volume)Ordered By: Rafi Moraes on 02-19-2024 Creatinine [Mass/Vol] 1.31 mg/dL 0.55-1.02 [facility] Comment on above: The validity of the calculated GFR & GFRAA in patients over 70 years has not been determined. Clinical correlation is essential. Serum or plasma urea nitroge n measurement (mass/volume)Ordered By: Rafi Moraes on 02-19-2024 Urea nitrogen [Mass/Vol] 23 mg/dL 7-18 [facility] Thin prep Papanicolaou smear with manual screeningOrdered By: Rafi Moraes on 02-19-2024 Thin prep Papanicolaou smear with manual screening 11 5-15 [facility] Basophil percentageOrdered B y: Ashu Edmond on 01-18-2024 Basophil percentage 25-50 SEEN /hpf 0-5 [facility] Bilirubin Test strip Ql (U)O rdered By: Ashu Edmond on 01-18-2024 Bilirubin Ql (U) 1 mg/dL Negative [facility] Comment on above: COLOR OF URINE MAY A FFECT DIPSTICK RESULTS. Culture, urineOrdered By: Catherine Edmond on 01-18-2024 Bacteria identified Cx Nom (U) Klebsiella pneumoniae sp pneum [facility] Hyaline casts LM.LPF (Urine sed) [#/Area]Ordered By: Ashu Edmond on 01-18-2024 Hyaline casts (Urine sed) [#/Area] 0 /[LPF] 0-5 [facility] Ketones Test strip Ql (U)Ord ered By: Ashu Edmond on 01-18-2024 Ketones Ql (U) 5 mg/dl Negative [facility] Mucus LM Ql (Urine sed)Order ed By: Ashu Edmond on 01-18-2024 Mucus Ql (Urine sed) 0 SEEN /hpf [facility] Nitrite Test strip Ql (U)Ord ered By: Ashu Edmond on 01-18-2024 Nitrite Ql (U) Negative Negative [facility] No Panel InformationOrdered By: Ashu Edmond on 01-18-2024 Urine RBC 5-10 SEEN /hpf 0-5 [facility] Protein Test strip Ql (U)Ord ered By: Ashu Edmond on 01-18-2024 Protein Ql (U) 100 mg/dl Negative [facility] Squamous epithelial cells de tection in urine sediment by light microscopyOrdered By: Ashu Edmond on 01-18-2024 Epithelial cells.squamous LM Ql (Urine sed) 0-5 SEEN /hpf 5-10 [facility] Urine blood detectionOrdered By: Ashu Edmond on 01-18-2024 RBC Ql (U) 150 /ul Negative [facility] Urine clarityOrdered By: Ashu Edmond on 01-18-2024 Clarity (U) Cloudy Clear [facility] Urine color determinationOrd ered By: Ashu Edmond on 01-18-2024 Color (U) Yellow Yellow [facility] Urine glucose detectionOrder ed By: Ashu Edmond on 01-18-2024 Glucose Ql (U) Normal mg/dl Normal [facility] Urine leukocyte esterase det ection by dipstickOrdered By: Ashu Edmond on 01-18-2024 Leukocyte esterase Test strip Ql (U) 500 /ul Negative [facility] Urine pHOrdered By: Ashu valderrama on 01-18-2024 pH (U) 5.0 [pH] 5.0 - 8.0 [facility] Urine sediment bacteria coun t by microscopy (number/high power field)Ordered By: Ashu Edmond on 01-18-2024 Bacteria LM.HPF (Urine sed) [#/Area] RARE /hpf None Seen [facility] Urine specific gravity measu rementOrdered By: Ashu Edmond on 01-18-2024 Specific gravity (U) [Rel density] 1.025 1.002-1.030 [facility] Urine urobilinogen measureme ntOrdered By: Ashu Edmond on 01-18-2024 Urobilinogen Ql (U) 1 mg/dl Normal [facility] Basophil percentageOrdered B y: Andrew Garcia on 12-13-2023 Basophil percentage 10-25 SEEN /hpf 0-5 [facility] Bilirubin Test strip Ql (U)O rdered By: Andrew Garcia on 12-13-2023 Bilirubin Ql (U) Negative Negative [facility] Culture, urineOrdered By: Lee Garcia on 12-13-2023 Bacteria identified Cx Nom (U) Escherichia coli [facility] Bacteria identified Cx Nom (U) Escherichia coli [facility] Ketones Test strip Ql (U)Ord ered By: Andrew Garcia on 12-13-2023 Ketones Ql (U) Negative Negative [facility] Mucus LM Ql (Urine sed)Order ed By: Andrew Garcia on 12-13-2023 Mucus Ql (Urine sed) 0 SEEN /hpf [facility] Nitrite Test strip Ql (U)Ord ered By: Andrew Garcia on 12-13-2023 Nitrite Ql (U) Negative Negative [facility] Protein Test strip Ql (U)Ord ered By: Andrew Garcia on 12-13-2023 Protein Ql (U) 15 mg/dl Negative [facility] Squamous epithelial cells de tection in urine sediment by light microscopyOrdered By: Andrew Garcia on 12-13-2023 Epithelial cells.squamous LM Ql (Urine sed) 0-5 SEEN /hpf 5-10 [facility] Urine blood detectionOrdered By: Andrew Garcia on 12-13-2023 RBC Ql (U) 10 /ul Negative [facility] RBC Ql (U) 0 SEEN /hpf 0-5 [facility] Urine clarityOrdered By: Shannon Garcia on 12-13-2023 Clarity (U) Clear Clear [facility] Urine color determinationOrd ered By: Andrew Garcia on 12-13-2023 Color (U) Yellow Yellow [facility] Urine glucose detectionOrder ed By: Andrew Garcia on 12-13-2023 Glucose Ql (U) Normal mg/dl Normal [facility] Urine leukocyte esterase det ection by dipstickOrdered By: Andrew Garcia on 12-13-2023 Leukocyte esterase Test strip Ql (U) 500 /ul Negative [facility] Urine pHOrdered By: Andrew worrell on 12-13-2023 pH (U) 5.0 [pH] 5.0 - 8.0 [facility] Urine sediment bacteria coun t by microscopy (number/high power field)Ordered By: Andrew Garcia on 12-13-2023 Bacteria LM.HPF (Urine sed) [#/Area] 0 /[HPF] None Seen [facility] Urine specific gravity measu rementOrdered By: Andrew Garcia on 12-13-2023 Specific gravity (U) [Rel density] 1.020 1.002-1.030 [facility] Urobilinogen Auto test strip Ql (U)Ordered By: Andrew Garcia on 12-13-2023 Urobilinogen Ql (U) Normal mg/dl Normal [facility] Basophil percentageOrdered B y: Rafi Moraes on 12-05-2023 Chloride [Moles/Vol] 104 mmol/L 98-107 [facility] Cholesterol [Mass/Vol] 147 mg/dL <200 [facility] Comment on above: <200 mg/dL Desirable 200-240 mg/dL Borderline >240 mg/dL High Risk Glucose [Mass/Vol] 129 mg/dL 74-106 [facility] Comment on above: Fasting Glucose resu lt greater than or equal to 126 mg/dL suggests DIABETES MELLITUS per A.D.A. criteria. Potassium [Moles/Vol] 3.7 mmol/L 3.5-5.1 [facility] Sodium [Moles/Vol] 138 mmol/L 136-145 [facility] Triglyceride [Mass/Vol] 242 mg/dL <199 [facility] Comment on above: The drugs N-Acetylcy steine and Metamizole may falsely depress this assay.Serum Triglycerides Reference Interval Normal <150 mg/dL Borderline high 150 - 199 mg/dL High 200 - 499 mg/dL Very High > or = 500 mg/dL Laboratory - Chemistry and C hemistry - challengeOrdered By: Rafi Moraes on 12-05-2023 CO2 [Moles/Vol] 24.0 mmol/L 21.0-32.0 [facility] Urea nitrogen/Creatinine [Mass ratio] 20.5 mg/mg 10-20 [facility] No Panel InformationOrdered By: Rafi Moraes on 12-05-2023 Estimated GFR (MDRD) Amer 52 mL/min >60 [facility] Comment on above: GFR Calc Estimated GFR (MDRD) Non-Af Amer 43 mL/min >60 [facility] Comment on above: Non- GFR Calc Thyroid Stimulating Hormone (TSH) 1.34 uIU/mL 0.358-3.74 [facility] Serum or plasma calcium laurita urement (mass/volume)Ordered By: Rafi Moraes on 12-05-2023 Calcium [Mass/Vol] 9.1 mg/dL 8.5-10.1 [facility] Serum or plasma cholesterol in HDL measurement (mass/volume)Ordered By: Rafi Moraes on 12-05-2023 Cholesterol in HDL [Mass/Vol] 42 mg/dL >40 [facility] Comment on above: The drugs N-Acetylcy steine and Metamizole may falsely depress this assay. Reference Range HDL <40 mg/dL Low HDL Cholesterol HDL >or= 60 mg/dL High HDL Cholesterol Serum or plasma cholesterol in VLDL measurement (mass/volume)Ordered By: Rafi Moraes on 12-05-2023 Cholesterol in VLDL [Mass/Vol] 48 mg/dL 5-40 [facility] Serum or plasma creatinine m easurement (mass/volume)Ordered By: Rafi Moraes on 12-05-2023 Creatinine [Mass/Vol] 1.27 mg/dL 0.55-1.02 [facility] Comment on above: The validity of the calculated GFR & GFRAA in patients over 70 years has not been determined. Clinical correlation is essential. Serum or plasma low density lipoprotein (LDL) cholesterol measurement (mass/volume)Ordered By: Rafi Moraes on 12-05-2023 Cholesterol in LDL [Mass/Vol] 57 mg/dL 0-130 [facility] Serum or plasma urea nitroge n measurement (mass/volume)Ordered By: Rafi Moraes on 12-05-2023 Urea nitrogen [Mass/Vol] 26 mg/dL 7-18 [facility] Thin prep Papanicolaou smear with manual screeningOrdered By: Rafi Moraes on 12-05-2023 Thin prep Papanicolaou smear with manual screening 10 5-15 [facility] Basophil percentageOrdered B y: Victoriano Kunz on 11-12-2023 Basophil percentage >100 SEEN /hpf 0-5 [facility] Bilirubin Test strip Ql (U)O rdered By: Victoriano Kunz on 11-12-2023 Bilirubin Ql (U) 1 mg/dL Negative [facility] Comment on above: COLOR OF URINE MAY A FFECT DIPSTICK RESULTS. Culture, urineOrdered By: St jonny Kunz on 11-12-2023 Bacteria identified Cx Nom (U) Escherichia coli [facility] Bacteria identified Cx Nom (U) Streptococcus agalactiae (B) [facility] Bacteria identified Cx Nom (U) Escherichia coli [facility] Bacteria identified Cx Nom (U) Streptococcus agalactiae (B) [facility] Ketones Test strip Ql (U)Ord ered By: Victoriano Kunz on 11-12-2023 Ketones Ql (U) Negative Negative [facility] Mucus LM Ql (Urine sed)Order ed By: Victoriano Kunz on 11-12-2023 Mucus Ql (Urine sed) 0 SEEN /hpf [facility] Nitrite Test strip Ql (U)Ord ered By: Victoriano Kunz on 11-12-2023 Nitrite Ql (U) Positive Negative [facility] Protein Test strip Ql (U)Ord ered By: Victoriano Kunz on 11-12-2023 Protein Ql (U) 30 mg/dl Negative [facility] Squamous epithelial cells de tection in urine sediment by light microscopyOrdered By: Victoriano Kunz on 11-12-2023 Epithelial cells.squamous LM Ql (Urine sed) 0-5 SEEN /hpf 5-10 [facility] Urine blood detectionOrdered By: Victoriano Kunz on 11-12-2023 RBC Ql (U) 25 /ul Negative [facility] RBC Ql (U) 0-5 SEEN /hpf 0-5 [facility] Urine clarityOrdered By: Jerome Kunz on 11-12-2023 Clarity (U) Cloudy Clear [facility] Urine color determinationOrd ered By: Victoriano Kunz on 11-12-2023 Color (U) Yellow Yellow [facility] Urine glucose detectionOrder ed By: Victoriano Kunz on 11-12-2023 Glucose Ql (U) Normal mg/dl Normal [facility] Urine leukocyte esterase det ection by dipstickOrdered By: Victoriano Kunz on 11-12-2023 Leukocyte esterase Test strip Ql (U) 500 /ul Negative [facility] Urine pHOrdered By: Victoriano sutton on 11-12-2023 pH (U) 5.0 [pH] 5.0 - 8.0 [facility] Urine sediment bacteria coun t by microscopy (number/high power field)Ordered By: Victoriano Kunz on 11-12-2023 Bacteria LM.HPF (Urine sed) [#/Area] 1 /[HPF] None Seen [facility] Urine specific gravity measu rementOrdered By: Victoriano Kunz on 11-12-2023 Specific gravity (U) [Rel density] 1.020 1.002-1.030 [facility] Urobilinogen Auto test strip Ql (U)Ordered By: Victoriano Kunz on 11-12-2023 Urobilinogen Ql (U) 4 mg/dl Normal [facility] Basophil percentageOrdered B y: Darren Delaney on 10-04-2023 Basophil percentage >100 SEEN /hpf 0-5 [facility] Bilirubin Test strip Ql (U)O rdered By: Darren Delaney on 10-04-2023 Bilirubin Ql (U) 1 mg/dL Negative [facility] Comment on above: COLOR OF URINE MAY A FFECT DIPSTICK RESULTS. Hyaline casts LM.LPF (Urine sed) [#/Area]Ordered By: Darren Delaney on 10-04-2023 Hyaline casts (Urine sed) [#/Area] 0 /[LPF] 0-5 [facility] Ketones Test strip Ql (U)Ord ered By: Darren Delaney on 10-04-2023 Ketones Ql (U) 5 mg/dl Negative [facility] Mucus LM Ql (Urine sed)Order ed By: Darren Delaney on 10-04-2023 Mucus Ql (Urine sed) 0 SEEN /hpf [facility] Nitrite Test strip Ql (U)Ord ered By: Darren Delaney on 10-04-2023 Nitrite Ql (U) Negative Negative [facility] Protein Test strip Ql (U)Ord ered By: Darren Delaney on 10-04-2023 Protein Ql (U) 100 mg/dl Negative [facility] Squamous epithelial cells de tection in urine sediment by light microscopyOrdered By: Darren Delaney on 10-04-2023 Epithelial cells.squamous LM Ql (Urine sed) 0-5 SEEN /hpf 5-10 [facility] Urine blood detectionOrdered By: Darren Delaney on 10-04-2023 RBC Ql (U) 250 /ul Negative [facility] RBC Ql (U) 25-50 SEEN /hpf 0-5 [facility] Urine clarityOrdered By: Joe Delaney on 10-04-2023 Clarity (U) Turbid Clear [facility] Urine color determinationOrd ered By: Darren Delaney on 10-04-2023 Color (U) Yellow Yellow [facility] Urine glucose detectionOrder ed By: Darren Delaney on 10-04-2023 Glucose Ql (U) Normal mg/dl Normal [facility] Urine leukocyte esterase det ection by dipstickOrdered By: Darren Delaney on 10-04-2023 Leukocyte esterase Test strip Ql (U) 500 /ul Negative [facility] Urine pHOrdered By: Darren Delaney on 10-04-2023 pH (U) 5.0 [pH] 5.0 - 8.0 [facility] Urine sediment bacteria coun t by microscopy (number/high power field)Ordered By: Darren Delaney on 10-04-2023 Bacteria LM.HPF (Urine sed) [#/Area] 0 /[HPF] None Seen [facility] Urine sediment renal epithel ial cell count by microscopy (number/high power field)Ordered By: Darren Delaney on 10-04-2023 Epithelial cells.renal LM.HPF (Urine sed) [#/Area] 0 /[HPF] 0-5 [facility] Urine specific gravity measu rementOrdered By: Darren Delaney on 10-04-2023 Specific gravity (U) [Rel density] 1.030 1.002-1.030 [facility] Urobilinogen Auto test strip Ql (U)Ordered By: Darren Delaney on 10-04-2023 Urobilinogen Ql (U) 1 mg/dl Normal [facility] Basophil percentageOrdered B y: Rafi Moraes on 08-19-2023 Chloride [Moles/Vol] 103 mmol/L 98-107 [facility] Cholesterol [Mass/Vol] 186 mg/dL <200 [facility] Comment on above: <200 mg/dL Desirable 200-240 mg/dL Borderline >240 mg/dL High Risk Glucose [Mass/Vol] 162 mg/dL 74-106 [facility] Comment on above: Fasting Glucose resu lt greater than or equal to 126 mg/dL suggests DIABETES MELLITUS per A.D.A. criteria. Potassium [Moles/Vol] 3.8 mmol/L 3.5-5.1 [facility] Sodium [Moles/Vol] 138 mmol/L 136-145 [facility] Triglyceride [Mass/Vol] 305 mg/dL <199 [facility] Comment on above: The drugs N-Acetylcy steine and Metamizole may falsely depress this assay.Serum Triglycerides Reference Interval Normal <150 mg/dL Borderline high 150 - 199 mg/dL High 200 - 499 mg/dL Very High > or = 500 mg/dL Laboratory - Chemistry and C hemistry - challengeOrdered By: Rafi Moraes on 08-19-2023 CO2 [Moles/Vol] 25.0 mmol/L 21.0-32.0 [facility] Urea nitrogen/Creatinine [Mass ratio] 16.1 mg/mg 10-20 [facility] No Panel InformationOrdered By: Rafi Moraes on 08-19-2023 Estimated GFR (MDRD) Amer 48 mL/min >60 [facility] Comment on above: GFR Calc Estimated GFR (MDRD) Non-Af Amer 40 mL/min >60 [facility] Comment on above: Non- GFR Calc Serum or plasma calcium laurita urement (mass/volume)Ordered By: Rafi Moraes on 08-19-2023 Calcium [Mass/Vol] 9.2 mg/dL 8.5-10.1 [facility] Serum or plasma cholesterol in HDL measurement (mass/volume)Ordered By: Rafi Moraes on 08-19-2023 Cholesterol in HDL [Mass/Vol] 39 mg/dL >40 [facility] Comment on above: The drugs N-Acetylcy steine and Metamizole may falsely depress this assay. Reference Range HDL <40 mg/dL Low HDL Cholesterol HDL >or= 60 mg/dL High HDL Cholesterol Serum or plasma cholesterol in VLDL measurement (mass/volume)Ordered By: Rafi Moraes on 08-19-2023 Cholesterol in VLDL [Mass/Vol] 61 mg/dL 5-40 [facility] Serum or plasma creatinine m easurement (mass/volume)Ordered By: Rafi Moraes on 08-19-2023 Creatinine [Mass/Vol] 1.37 mg/dL 0.55-1.02 [facility] Comment on above: The validity of the calculated GFR & GFRAA in patients over 70 years has not been determined. Clinical correlation is essential. Serum or plasma low density lipoprotein (LDL) cholesterol measurement (mass/volume)Ordered By: Rafi Moraes on 08-19-2023 Cholesterol in LDL [Mass/Vol] 86 mg/dL 0-130 [facility] Serum or plasma urea nitroge n measurement (mass/volume)Ordered By: Rafi Moraes on 08-19-2023 Urea nitrogen [Mass/Vol] 22 mg/dL 7-18 [facility] Thin prep Papanicolaou smear with manual screeningOrdered By: Rafi Moraes on 08-19-2023 Thin prep Papanicolaou smear with manual screening 10 5-15 [facility] Culture, urineOrdered By: Brett Lewis on 05-22-2023 Bacteria identified Cx Nom (U) Escherichia coli [facility] Amorphous sediment detection in urine sediment by light microscopyOrdered By: Abdirahman Lewis on 05-20-2023 Amorphous sediment LM Ql (Urine sed) 1+ URATE [facility] Basophil percentageOrdered B y: Abdirahman Lewis on 05-20-2023 Basophil percentage 50-100 SEEN /hpf 0-5 [facility] Bilirubin Test strip Ql (U)O rdered By: Abdirahman Lewis on 05-20-2023 Bilirubin Ql (U) Negative Negative [facility] Culture, urineOrdered By: Brett Lewis on 05-20-2023 Bacteria identified Cx Nom (U) Escherichia coli [facility] Ketones Test strip Ql (U)Ord ered By: Abdirahman Lewis on 05-20-2023 Ketones Ql (U) 5 mg/dl Negative [facility] Laboratory - Chemistry and C hemistry - challengeon 05-20-2023 Bilirubin Ql (U) Negative [facility] Glucose Ql (U) Negative [facility] Ketones Ql (U) Negative [facility] pH (U) 6.0 [pH] [facility] Specific gravity (U) [Rel density] 1.025 [facility] Urobilinogen (U) [Mass/Vol] Negative [facility] Laboratory - Hematology and Cell countson 05-20-2023 Hemoglobin Ql (U) Hemolyzed [facility] Laboratory - Specimen inform ationon 05-20-2023 Clarity (U) Clear [facility] Color (U) YELLOW [facility] Laboratory - Urinalysison Nitrite Ql (U) Negative [facility] Protein Ql (U) Trace [facility] Mucus LM Ql (Urine sed)Order ed By: Abdirahman Lewis on 05-20-2023 Mucus Ql (Urine sed) 0 SEEN /hpf [facility] Nitrite Test strip Ql (U)Ord ered By: Abdirahman Lewis on 06-19-2023 Nitrite Ql (U) Negative Negative [facility] No Panel Informationon 05-20 Urine Leukocytes Positive [facility] Urine Non-Hemolyzed Blood Moderate [facility] Protein Test strip Ql (U)Ord ered By: Abdirahman Lewis on 05-20-2023 Protein Ql (U) 30 mg/dl Negative [facility] Squamous epithelial cells de tection in urine sediment by light microscopyOrdered By: Abdirahman Lewis on 05-20-2023 Epithelial cells.squamous LM Ql (Urine sed) 5-10 SEEN /hpf 5-10 [facility] Urine blood detectionOrdered By: Abdirahman Lewis on 05-20-2023 RBC Ql (U) 25 /ul Negative [facility] RBC Ql (U) 5-10 SEEN /hpf 0-5 [facility] Urine clarityOrdered By: Jorge Lewis on 05-20-2023 Clarity (U) Sl Cldy Clear [facility] Comment on above: Previous reported re sult: Clear Edited by: KWASI on 05/20/23:1848 Urine color determinationOrd ered By: Abdirahman Lewis on 05-20-2023 Color (U) Yellow Yellow [facility] Urine glucose detectionOrder ed By: Abdirahman Lewis on 05-20-2023 Glucose Ql (U) 50 mg/dl Normal [facility] Urine leukocyte esterase det ection by dipstickOrdered By: Abdirahman Lewis on 05-20-2023 Leukocyte esterase Test strip Ql (U) 500 /ul Negative [facility] Urine pHOrdered By: Abdirahman Lewis on 05-20-2023 pH (U) 5.0 [pH] 5.0 - 8.0 [facility] Urine sediment bacteria coun t by microscopy (number/high power field)Ordered By: Abdirahman Lewis on 05-20-2023 Bacteria LM.HPF (Urine sed) [#/Area] RARE /hpf None Seen [facility] Urine specific gravity measu rementOrdered By: Abdirahman Lewis on 05-20-2023 Specific gravity (U) [Rel density] 1.025 1.002-1.030 [facility] Urobilinogen Auto test strip Ql (U)Ordered By: Abdirahman Lewis on 05-20-2023 Urobilinogen Ql (U) Normal mg/dl Normal [facility] Basophil percentageOrdered B y: Dr. Moraes on 02-20-2023 Bilirubin [Mass/Vol] 0.40 mg/dL 0.20-1.00 [facility] Comment on above: For patients on eltr ombopag therapy, use of Dimension Cross[employer] TBIL is not recommended. Chloride [Moles/Vol] 103 mmol/L 98-107 [facility] Cholesterol [Mass/Vol] 156 mg/dL <200 [facility] Comment on above: <200 mg/dL Desirable 200-240 mg/dL Borderline >240 mg/dL High Risk Glucose [Mass/Vol] 164 mg/dL 74-106 [facility] Comment on above: Fasting Glucose resu lt greater than or equal to 126 mg/dL suggests DIABETES MELLITUS per A.D.A. criteria. Potassium [Moles/Vol] 4.0 mmol/L 3.5-5.1 [facility] Protein [Mass/Vol] 7.6 g/dL 6.4-8.2 [facility] Sodium [Moles/Vol] 138 mmol/L 136-145 [facility] Triglyceride [Mass/Vol] 202 mg/dL <199 [facility] Comment on above: The drugs N-Acetylcy steine and Metamizole may falsely depress this assay.Serum Triglycerides Reference Interval Normal <150 mg/dL Borderline high 150 - 199 mg/dL High 200 - 499 mg/dL Very High > or = 500 mg/dL Laboratory - Chemistry and C hemistry - challengeOrdered By: Dr. Moraes on 02-20-2023 ALP [Catalytic activity/Vol] 63 U/L 45-117 [facility] ALT [Catalytic activity/Vol] 23 U/L 13-56 [facility] CO2 [Moles/Vol] 24.0 mmol/L 21.0-32.0 [facility] Globulin (S) [Mass/Vol] 4.0 g/dL 2.2-4.2 [facility] Urea nitrogen/Creatinine [Mass ratio] 19.7 mg/mg 10-20 [facility] No Panel InformationOrdered By: Dr. Moraes on 02-20-2023 Estimated GFR (MDRD) Amer 48 mL/min >60 [facility] Comment on above: GFR Calc Estimated GFR (MDRD) Non-Af Amer 40 mL/min >60 [facility] Comment on above: Non- GFR Calc Serum or plasma albumin laurita urement (mass/volume)Ordered By: Dr. Moraes on 02-20-2023 Albumin [Mass/Vol] 3.6 g/dL 3.2-5.0 [facility] Serum or plasma albumin/glob ulin mass ratioOrdered By: Dr. Moraes on 02-20-2023 Albumin/Globulin [Mass ratio] 0.9 {ratio} 0.9-2.4 [facility] Serum or plasma calcium laurita urement (mass/volume)Ordered By: Dr. Moraes on 02-20-2023 Calcium [Mass/Vol] 9.4 mg/dL 8.5-10.1 [facility] Serum or plasma cholesterol in HDL measurement (mass/volume)Ordered By: Dr. Moraes on 02-20-2023 Cholesterol in HDL [Mass/Vol] 41 mg/dL >40 [facility] Comment on above: The drugs N-Acetylcy steine and Metamizole may falsely depress this assay. Reference Range HDL <40 mg/dL Low HDL Cholesterol HDL >or= 60 mg/dL High HDL Cholesterol Serum or plasma cholesterol in VLDL measurement (mass/volume)Ordered By: Dr. Moraes on 02-20-2023 Cholesterol in VLDL [Mass/Vol] 40 mg/dL 5-40 [facility] Serum or plasma creatinine m easurement (mass/volume)Ordered By: Dr. Moraes on 02-20-2023 Creatinine [Mass/Vol] 1.37 mg/dL 0.55-1.02 [facility] Comment on above: The validity of the calculated GFR & GFRAA in patients over 70 years has not been determined. Clinical correlation is essential. Serum or plasma low density lipoprotein (LDL) cholesterol measurement (mass/volume)Ordered By: Dr. Moraes on 02-20-2023 Cholesterol in LDL [Mass/Vol] 75 mg/dL 0-130 [facility] Serum or plasma urea nitroge n measurement (mass/volume)Ordered By: Dr. Moraes on 02-20-2023 Urea nitrogen [Mass/Vol] 27 mg/dL 7-18 [facility] Thin prep Papanicolaou smear with manual screeningOrdered By: Dr. Moraes on 02-20-2023 Thin prep Papanicolaou smear with manual screening 11 U/L 15-37 [facility] Thin prep Papanicolaou smear with manual screening 11 5-15 [facility] Culture, urineOrdered By: Dr Dafne Sanchez on 01-25-2023 Bacteria identified Cx Nom (U) Presumptive E. coli [facility] Basophil percentageOrdered B y: Dr. Sanchez on 01-23-2023 Basophil percentage 25-50 SEEN /hpf 0-5 [facility] Bilirubin Test strip Ql (U)O rdered By: ED PROVIDER on 01-23-2023 Bilirubin Ql (U) Negative Negative [facility] Ketones Test strip Ql (U)Ord ered By: ED PROVIDER on 01-23-2023 Ketones Ql (U) Negative Negative [facility] Mucus LM Ql (Urine sed)Order ed By: Dr. Sanchez on 01-23-2023 Mucus Ql (Urine sed) 0 SEEN /hpf [facility] Nitrite Test strip Ql (U)Ord ered By: ED PROVIDER on 01-23-2023 Nitrite Ql (U) Negative Negative [facility] Protein Test strip Ql (U)Ord ered By: ED PROVIDER on 01-23-2023 Protein Ql (U) 30 mg/dl Negative [facility] Squamous epithelial cells de tection in urine sediment by light microscopyOrdered By: Dr. Sanchez on 01-23-2023 Epithelial cells.squamous LM Ql (Urine sed) 0-5 SEEN /hpf 5-10 [facility] Urine blood detectionOrdered By: ED PROVIDER on 01-23-2023 RBC Ql (U) 10 /ul Negative [facility] Urine blood detectionOrdered By: Dr. Sanchez on 01-23-2023 RBC Ql (U) 0 SEEN /hpf 0-5 [facility] Urine clarityOrdered By: ED PROVIDER on 01-23-2023 Clarity (U) Sl. Cloudy Clear [facility] Urine color determinationOrd ered By: ED PROVIDER on 01-23-2023 Color (U) Yellow Yellow [facility] Urine glucose detectionOrder ed By: ED PROVIDER on 01-23-2023 Glucose Ql (U) Normal mg/dl Normal [facility] Urine leukocyte esterase det ection by dipstickOrdered By: ED PROVIDER on 01-23-2023 Leukocyte esterase Test strip Ql (U) 500 /ul Negative [facility] Urine pHOrdered By: ED PROVI DAVID on 01-23-2023 pH (U) 6.0 [pH] 5.0 - 8.0 [facility] Urine sediment bacteria coun t by microscopy (number/high power field)Ordered By: Dr. Sanchez on 01-23-2023 Bacteria LM.HPF (Urine sed) [#/Area] RARE /hpf None Seen [facility] Urine specific gravity measu rementOrdered By: ED PROVIDER on 01-23-2023 Specific gravity (U) [Rel density] 1.020 1.002-1.030 [facility] Urobilinogen Auto test strip Ql (U)Ordered By: ED PROVIDER on 01-23-2023 Urobilinogen Ql (U) 1 mg/dl Normal [facility] Basophil percentageon 2021 Chloride [Moles/Vol] 104 mmol/L 98-107 [facility] Work Phone: Glucose [Mass/Vol] 124 mg/dL 74-106 [facility] Work Phone: Comment on above: Fasting Glucose resu lt from 100 to 125 mg/dL suggests IMPAIRED HOMEOSTASIS per A.D.A. criteria. Potassium [Moles/Vol] 3.6 mmol/L 3.5-5.1 [facility] Work Phone: Sodium [Moles/Vol] 139 mmol/L 136-145 [facility] Work Phone: Laboratory - Chemistry and C hemistry - challengeon 08-22-2022 CO2 [Moles/Vol] 26.0 mmol/L 21.0-32.0 [facility] Work Phone: Urea nitrogen/Creatinine [Mass ratio] 16.7 mg/mg 10-20 [facility] Work Phone: No Panel Informationon 08-22 Estimated GFR (MDRD) Amer 46 mL/min >60 [facility] Work Phone: Comment on above: GFR Calc Estimated GFR (MDRD) Non-Af Amer 38 mL/min >60 [facility] Work Phone: Comment on above: Non- GFR Calc Serum or plasma calcium laurita urement (mass/volume)on 08-22-2022 Calcium [Mass/Vol] 9.2 mg/dL 8.5-10.1 [facility] Work Phone: Serum or plasma creatinine m easurement (mass/volume)on 08-22-2022 Creatinine [Mass/Vol] 1.44 mg/dL 0.55-1.02 [facility] Work Phone: Comment on above: The validity of the calculated GFR & GFRAA in patients over 70 years has not been determined. Clinical correlation is essential. Serum or plasma urea nitroge n measurement (mass/volume)on 08-22-2022 Urea nitrogen [Mass/Vol] 24 mg/dL 7-18 [facility] Work Phone: Thin prep Papanicolaou smear with manual screeningon 08-22-2022 Thin prep Papanicolaou smear with manual screening 9 5-15 [facility] Work Phone: Basophil percentageon 2021 Basophil percentage 10-25 SEEN /hpf 0-5 [facility] Work Phone: Bilirubin Test strip Ql (U)o n 07-21-2022 Bilirubin Ql (U) Negative Negative [facility] Work Phone: Ketones Test strip Ql (U)on 07-21-2022 Ketones Ql (U) Negative Negative [facility] Work Phone: Mucus LM Ql (Urine sed)on Mucus Ql (Urine sed) 0 SEEN /hpf [facility] Work Phone: Nitrite Test strip Ql (U)on 07-21-2022 Nitrite Ql (U) Negative Negative [facility] Work Phone: Protein Test strip Ql (U)on 07-21-2022 Protein Ql (U) 15 mg/dl Negative [facility] Work Phone: Squamous epithelial cells de tection in urine sediment by light microscopyon 07-21-2022 Epithelial cells.squamous LM Ql (Urine sed) 0-5 SEEN /hpf 5-10 [facility] Work Phone: Urine blood detectionon --2021 RBC Ql (U) 10 /ul Negative [facility] Work Phone: RBC Ql (U) 0-5 SEEN /hpf 0-5 [facility] Work Phone: Urine clarityon 07-21-2022 Clarity (U) Sl. Cloudy Clear [facility] Work Phone: Urine color determinationon 07-21-2022 Color (U) Yellow Yellow [facility] Work Phone: Urine glucose detectionon Glucose Ql (U) Normal mg/dl Normal [facility] Work Phone: Urine leukocyte esterase det ection by dipstickon 07-21-2022 Leukocyte esterase Test strip Ql (U) 500 /ul Negative [facility] Work Phone: Urine pHon 07-21-2022 pH (U) 5.0 [pH] 5.0 - 8.0 [facility] Work Phone: Urine sediment bacteria coun t by microscopy (number/high power field)on 07-21-2022 Bacteria LM.HPF (Urine sed) [#/Area] 0 /[HPF] None Seen [facility] Work Phone: Urine specific gravity measu rementon 07-21-2022 Specific gravity (U) [Rel density] 1.020 1.002-1.030 [facility] Work Phone: Urobilinogen Auto test strip Ql (U)on 07-21-2022 Urobilinogen Ql (U) Normal mg/dl Normal [facility] Work Phone: Culture, urine Bacteria identified Cx Nom (U) Positive [facility] Work Phone: Vital Signs Date Time Vital Sign Value Performing Clinician Faci lity 02-24-2024 16:39-0400 Body temperature 97.8 [degF] Dr. Rafi Moraes Work Phone: [facility] 02-24-2024 16:39-0400 Diastolic blood pressure 72 mm[Hg] Dr. Rafi Moraes Work Phone: [facility] 02-24-2024 16:39-0400 Heart rate 86 /min Dr. Rafi Moraes Work Phone: [facility] 02-24-2024 16:39-0400 Respiratory rate 18 /min Dr. Rafi Moraes Work Phone: [facility] 02-24-2024 16:39-0400 SaO2% (BldA) [Mass fraction] 96 % Dr. Rafi Moraes Work Phone: [facility] 02-24-2024 16:39-0400 Systolic blood pressure 120 mm[Hg] Dr. Rafi Moraes Work Phone: [facility] 01-18-2024 17:42-0500 Body temperature 97.5 [degF] Dr. Rafi Moraes Work Phone: [facility] 01-18-2024 17:42-0500 Diastolic blood pressure 81 mm[Hg] Dr. Rafi Moraes Work Phone: [facility] 01-18-2024 17:42-0500 Heart rate 73 /min Dr. Rafi Moraes Work Phone: [facility] 01-18-2024 17:42-0500 Respiratory rate 16 /min Dr. Rafi Moraes Work Phone: [facility] 01-18-2024 17:42-0500 Systolic blood pressure 131 mm[Hg] Dr. Rafi Moraes Work Phone: [facility] 01-18-2024 17:37-0500 Body height 167.[address] Rafi Moraes Work Phone: [facility] 01-18-2024 17:37-0500 Body mass index (BMI) [Ratio] 32.3 kg/m2 Dr. Rafi Moraes Work Phone: [facility] 01-18-2024 17:37-0500 Body weight [address] Rafi Moraes Work Phone: [facility] 12-13-2023 21:32-0500 Body height 167.[address] Rafi Moraes Work Phone: [facility] 12-13-2023 21:32-0500 Body mass index (BMI) [Ratio] 32.1 kg/m2 Dr. Rafi Moraes Work Phone: [facility] [facility] 12-13-2023 21:32-0500 Body weight 90.[address] Rafi Moraes Work Phone: [facility] 12-13-2023 21:02-0500 Body temperature 96.3 [degF] Dr. Rafi Moraes Work Phone: [facility] 12-13-2023 21:02-0500 Diastolic blood pressure 75 mm[Hg] Dr. Rafi Moraes Work Phone: [facility] 12-13-2023 21:02-0500 Heart rate 76 /min Dr. Rafi Moraes Work Phone: [facility] 12-13-2023 21:02-0500 Respiratory rate 18 /min Dr. Rafi Moraes Work Phone: [facility] 12-13-2023 21:02-0500 SaO2% (BldA) [Mass fraction] 95 % Dr. Rafi Moraes Work Phone: [facility] 12-13-2023 21:02-0500 Systolic blood pressure 152 mm[Hg] Dr. Rafi Moraes Work Phone: [facility] 11-12-2023 11:03-0500 Body height 167.[address] Rafi Moraes Work Phone: [facility] 11-12-2023 11:03-0500 Body mass index (BMI) [Ratio] 32.1 kg/m2 Dr. Rafi Moraes Work Phone: [facility] 11-12-2023 11:03-0500 Body temperature 97.8 [degF] Dr. Rafi Moraes Work Phone: [facility] 11-12-2023 11:03-0500 Body weight 90.[address] Rafi Moraes Work Phone: [facility] 11-12-2023 11:03-0500 Diastolic blood pressure 71 mm[Hg] Dr. Rafi Moraes Work Phone: [facility] 11-12-2023 11:03-0500 Heart rate 75 /min Dr. Rafi Moraes Work Phone: [facility] 11-12-2023 11:03-0500 Respiratory rate 16 /min Dr. Rafi Moraes Work Phone: [facility] 11-12-2023 11:03-0500 SaO2% (BldA) [Mass fraction] 93 % Dr. Rafi Moraes Work Phone: [facility] 11-12-2023 11:03-0500 Systolic blood pressure 128 mm[Hg] Dr. Rafi Moraes Work Phone: [facility] 10-04-2023 19:20-0400 Diastolic blood pressure 78 mm[Hg] [facility] 10-04-2023 19:20-0400 Heart rate 68 /min [facility] 10-04-2023 19:20-0400 Respiratory rate 16 /min [facility] 10-04-2023 19:20-0400 SaO2% (BldA) [Mass fraction] 95 % [facility] 10-04-2023 19:20-0400 Systolic blood pressure 126 mm[Hg] [facility] 10-04-2023 18:05-0400 Body height 168 cm [facility] 10-04-2023 18:05-0400 Body mass index (BMI) [Ratio] 32 kg/m2 [facility] 10-04-2023 18:05-0400 Body temperature 97 [degF] [facility] 10-04-2023 18:05-0400 Body weight 90.31 kg [facility] 07-03-2023 17:55-0400 Body mass index (BMI) [Ratio] 31.4 kg/m2 Dr. Rafi Moraes Work Phone: [facility] 07-03-2023 17:55-0400 Body weight 88.[address] Rafi Moraes Work Phone: [facility] 07-03-2023 17:05-0400 Body height 167.[address] Rafi Moraes Work Phone: [facility] 07-03-2023 17:05-0400 Body temperature 97.4 [degF] Dr. Rafi Moraes Work Phone: [facility] 07-03-2023 17:05-0400 Diastolic blood pressure 73 mm[Hg] Dr. Rafi Moraes Work Phone: [facility] 07-03-2023 17:05-0400 Heart rate 60 /min Dr. aRfi Moraes Work Phone: [facility] 07-03-2023 17:05-0400 Respiratory rate 16 /min Dr. Rafi Moraes Work Phone: [facility] 07-03-2023 17:05-0400 SaO2% (BldA) [Mass fraction] 96 % Dr. Rafi Moraes Work Phone: [facility] 07-03-2023 17:05-0400 Systolic blood pressure 150 mm[Hg] Dr. Rafi Moraes Work Phone: [facility] 05-20-2023 15:21-0400 Body height 165.[address] Rafi Moraes Work Phone: [facility] 05-20-2023 15:21-0400 Body mass index (BMI) [Ratio] 33.9 kg/m2 Dr. Rafi Moraes Work Phone: [facility] 05-20-2023 15:21-0400 Body temperature 97.2 [degF] Dr. Rafi Moraes Work Phone: [facility] 05-20-2023 15:21-0400 Body weight 92.[address] Rafi Moraes Work Phone: [facility] 05-20-2023 15:21-0400 Diastolic blood pressure 88 mm[Hg] Dr. Rafi Moraes Work Phone: [facility] 05-20-2023 15:21-0400 Heart rate 105 /min Dr. Rafi Moraes Work Phone: [facility] 05-20-2023 15:21-0400 Respiratory rate 16 /min Dr. Rafi Moraes Work Phone: [facility] 05-20-2023 15:21-0400 SaO2% (BldA) [Mass fraction] 96 % Dr. Rafi Moraes Work Phone: [facility] 05-20-2023 15:21-0400 Systolic blood pressure 186 mm[Hg] Dr. Rafi Moraes Work Phone: [facility] 01-23-2023 20:16-0500 Body height 167.64 cm [facility] 01-23-2023 20:16-0500 Body mass index (BMI) [Ratio] 33.6 kg/m2 [facility] 01-23-2023 20:16-0500 Body temperature 98.3 [degF] [facility] 01-23-2023 20:16-0500 Body weight 94.57 kg [facility] 01-23-2023 20:16-0500 Diastolic blood pressure 95 mm[Hg] [facility] 01-23-2023 20:16-0500 Heart rate 80 /min [facility] 01-23-2023 20:16-0500 Respiratory rate 16 /min [facility] 01-23-2023 20:16-0500 SaO2% (BldA) [Mass fraction] 98 % [facility] 01-23-2023 20:16-0500 Systolic blood pressure 148 mm[Hg] [facility] 07-21-2022 19:43-0400 Body height 167.64 cm [facility] Work Phone: 07-21-2022 19:43-0400 Body mass index (BMI) [Ratio] 36.3 kg/m2 [facility] Work Phone: 07-21-2022 19:43-0400 Body temperature 96.9 [degF] [facility] Work Phone: 07-21-2022 19:43-0400 Body weight 102.05 kg [facility] Work Phone: 07-21-2022 19:43-0400 Diastolic blood pressure 91 mm[Hg] [facility] Work Phone: 07-21-2022 19:43-0400 Heart rate 73 /min [facility] Work Phone: 07-21-2022 19:43-0400 Respiratory rate 17 /min [facility] Work Phone: 07-21-2022 19:43-0400 SaO2% (BldA) [Mass fraction] 97 % [facility] Work Phone: 07-21-2022 19:43-0400 Systolic blood pressure 178 mm[Hg] [facility] Work Phone: Encounters Encounter Date Encounter Type Care Provider Facility Start: 03-02-2025 Encounter for genera l adult medical examination without abnormal findings Rafi Moraes [facility] Start: 02-25-2025 End: 02-25-[address] Rafi Moraes MD Work Phone: [facility] Work Phone: Start: 02-25-2025 End: 02-25-[address] Rafi Moraes MD -Laboratory, [facility] Start: 02-25-2025 End: 02-25-2025 ambulatory Rafi Moraes Facility:[facility] Start: 02-15-2025 End: 02-15-[address] Rafi Moraes MD Work Phone: [facility] Work Phone: Start: 02-15-2025 End: 02-15-[address] Rafi Moraes MD -Laboratory, [facility] Start: 02-15-2025 End: 02-15-2025 ambulatory Rafi Moraes Facility:[facility] Start: 11-18-2024 End: 11-18-[address] Rafi Moraes MD -Laboratory, [facility] Start: 11-18-2024 End: 11-18-2024 ambulatory Rafi Moraes Facility:[facility] Start: 08-19-2024 End: 08-19-2024 ambulatory Rafi Moraes Facility:[facility] Start: 02-24-2024 End: 02-24-[address] Rafi Moraes Work Phone: [facility] Work Phone: Start: 02-24-2024 End: 02-24-[address] [facility] Work [facility] Start: 02-24-2024 End: 02-24-[address] Rafi Moraes Work Phone: [facility] Work Phone: Start: 02-19-2024 End: 02-19-[address] Rafi Moraes Work Phone: [facility] Work Phone: Start: 02-19-2024 End: 02-19-[address] Rafi Moraes Work Phone: [facility] Start: 01-18-2024 End: 01-18-2024 Emergency department patient visit Dr. Rafi Moraes Work Phone: [facility] Work Phone: Start: 12-13-2023 End: 12-13-2023 Emergency department patient visit Dr. Rafi Moraes Work Phone: [facility] Work Phone: Start: 12-05-2023 End: 12-05-[address] Rafi Moraes Work Phone: [facility] Work Phone: Start: 12-05-2023 End: 12-05-[address] Rafi Moraes Work Phone: [facility] Start: 11-12-2023 End: 11-12-[address] Rafi Moraes Work Phone: [facility] Work Phone: Start: 11-12-2023 End: 11-12-[address] Rafi Moraes Work Phone: [facility] Work Phone: Start: 11-12-2023 End: 11-12-[address] Rafi Moraes Work Phone: [facility] Work Phone: Start: 10-04-2023 End: 10-04-2023 Emergency department patient visit [facility] Work Phone: Start: 08-19-2023 End: 08-19-2023 Patient encounter procedure [facility] Start: 07-03-2023 End: 07-03-2023 Emergency department patient visit Dr. Rafi Moraes Work Phone: [facility] Work Phone: Start: 05-20-2023 End: 05-20-[address] Rafi Moraes Work Phone: [facility] Work Phone: Start: 05-20-2023 End: 05-20-[address] [facility] Start: 05-20-2023 End: 05-20-[address] [facility] Start: 04-26-2023 End: 04-26-2023 ambulatory [facility] Work Phone: Start: 04-26-2023 End: 04-26-2023 [facility] Start: 02-20-2023 End: 02-20-2023 ambulatory [facility] Work Phone: Start: 02-20-2023 End: 02-20-2023 [facility] Start: 01-23-2023 End: 01-23-2023 Emergency department patient visit [facility] Start: 08-22-2022 End: 08-22-2022 ambulatory [facility] Work Phone: Start: 08-22-2022 End: 08-22-2022 [facility] Start: 07-26-2022 End: 07-26-2022 ambulatory [facility] Work Phone: Start: 07-26-2022 End: 07-26-2022 [facility] Start: 07-21-2022 End: 07-21-2022 Emergency department patient visit [facility] Procedures Date Procedure Procedure Detail Performing Clinician Start: 02-24-[address] Rafi Moraes Work Phone: Start: 01-18-[address] Rafi Moraes Work Phone: Start: 12-13-[address] Rafi Moraes Work Phone: Start: 11-12-[address] Rafi Moraes Work Phone: Start: 07-03-2023 Plain x-ray of wrist Dr Dafne Moraes Work Phone: Start: 07-03-2023 X-ray of chest posteroanterior view Dr. Rafi Moraes Work Phone: Start: 05-20-[address] Rafi Moraes Work Phone: Start: 04-26-2023 Radiologic examinati on of knee Urine culture Urine culture Urine culture Dr. Rafi Gann en Work Phone: Plan of Treatment Date Care Activity Detail Author Start: 01-18-2024 End: 01-18-2024 [facility] Start: 01-18-2024 Bacteria identified in Urine by Culture [facility] Start: 12-13-2023 End: 12-13-2023 [facility] Start: 12-13-2023 Bacteria identified in Urine by Culture Urine Culture [facility] Start: 10-04-2023 [facility] Start: 01-23-2023 [facility] Bacteria identified in Urine by Culture Urine Culture [facility] Patient Education [facility] Work Phone: Patient referral [facility] Work Phone: Urinalysis complete panel - Urine [facility] Payers Date Payer Category Payer Medicare [id number] 2024 Self-pay [id number] Unknown [id number] Unknown [id number] Unknown [id number] Unknown [id number] Social History Date Type Detail Facility Start: 07-21-2022 End: 02-24-2024 Tobacco smoking status NHIS Unknown if ever smoked [facility] Start: 08-17-2021 None [facility] Start: 08-17-2021 Non-smoker [facility] Start: 1945 Sex Assigned At Female [facility] Start: 04-19-2024 Tobacco smoking stat us NHIS Ex-smoker (finding) [facility] Start: 02-24-2025 End: 03-02-2025 Sex Female (finding) [facility] Discharge summary 01-18-2024 Note Date & Type Note Facility 01-18-2024 Discharge summary Note Date/Time January 18, 2024 5:49pm [facility] Medical Records Department [address] [place] [address] Emergency Department Summary 01/18/24 MR#: [id number] Acct: [id number] Name: CECY WILLAMS Rep #:[id number] : 1945 78 From: Ashu Edmond MD PCP: Dr. Rafi Moraes MD Status:REG E R Location: ED HPI History of Present Illness Chief Complaint: Complaint Detail of Chief Complaint: Discomfort with urination and frequency Onset/Context/Timing Onset: Today Context: Sudden Onset Timing: Intermittent Quality: Pain Location: Urethra Current Severity: Gone Maximum Severity: Severe Worsened by: Urination Relieved by: Not applicable Associated Symptoms Associated Symptoms: None Narrative Narrative: Patient is a 78-year-old woman with recurrent urinary tract infection. Multipleurine cultures positive for E. coli. Sensitive for essentially everything. Shedenies fever, chills night sweats. Denies nausea or vomiting. She denies flankpain or low back pain. She does complain of pain with urination and frequency. She has no other symptoms. Prior similar symptoms: Yes Recent Illness/Hospitalization: Yes PFSH PFSH Medical History Allergic rhinitis Arthritis Benign essential HTN Chronic neck and back pain Diarrhea Difficulty balancing when standing DM2 (diabetes mellitus, type 2) Hemorrhoids Incontinence Knee pain Shoulder pain Home Medications aspirin 81 mg tablet,delayed release 81 mg PO DAILY 11/24/16 [History Last Taken Unknown] atorvastatin 10 mg tablet 40 mg PO DAILY 11/24/16 [History Last Taken Unknown] chlorthalidone 25 mg tablet 25 mg PO DAILY 05/18/20 [History Last Taken Unknown] nebivolol 20 mg tablet (Bystolic) 20 mg PO DAILY 05/18/20 [History Last Taken Unknown] sertraline 100 mg tablet 100 mg PO DAILY 05/18/20 [History Last Taken Unknown] amlodipine 5 mg tablet 5 mg PO DAILY 05/20/23 [History Last Taken Unknown] metformin 1,000 mg tablet 1,000 mg PO BID 05/20/23 [History Last Taken Unknown] oxycodone-acetaminophen 5 mg-325 mg tablet (Percocet) 1 tab PO Q8H PRN pain 3 days #10 tabs 07/03/23 [Rx Last Taken Unknown] phenazopyridine 200 mg tablet (Pyridium) 200 mg PO BID PRN PRN Pain #10 tabs 10/04/23 [Rx Last Taken Unknown] sulfamethoxazole 800 mg-trimethoprim 160 mg tablet (Bactrim DS) 1 tab PO BID #14tabs 10/04/23 [Rx Last Taken Unknown] sulfamethoxazole 800 mg-trimethoprim 160 mg tablet 1 tab PO BID #14 tabs 12/13/23 [Rx Last Taken Unknown] cephalexin 500 mg capsule 500 mg PO 3XD #21 CAPSULES 01/18/24 [Rx Last Taken Unknown] phenazopyridine 200 mg tablet (Pyridium) 200 mg PO TID #10 tabs 01/18/24 [Rx Last Taken Unknown] Allergy/AdvReac Type Severity Reaction Status Date / Time lisinopril Allergy Shortness Verified 01/18/24 17:37 of breath nickel Allergy Rash Verified 01/18/24 17:37 nitrofurantoin Allergy Other Verified 01/18/24 17:37 [From Macrodantin] prednisolone Allergy Other Verified 01/18/24 17:37 Family History Father Asthma Sister Asthma Surgical History S/P D&C (status post dilation and curettage) S/P hysterectomy S/P laparoscopic cholecystectomy S/P right breast biopsy Social History household members: children Smoking Status: Former smoker alcohol intake: never ROS ROS ED Constitutional Constitutional ED: Denies chills, fever(s), subjective, sweats or weight loss Gastrointestinal Gastrointestinal: Denies abdominal pain, nausea or vomiting Genitourinary Genitourinary ED: Reports dysuria and urinary frequency; Denies hematuria Musculoskeletal Musculoskeletal: Denies arthralgias, back pain, myalgias or neck pain Hematologic/Lymphatic Hematologic/Lymphatic: Reports systems reviewed and no addt'l complaints, exceptas documented EXAM Physical Exam Const Vital Signs: 01/18/24 17:37 01/18/24 17:42 Temperature 97.5 F L 97.5 F L Temperature Source Temporal Temporal Pulse Rate 73 73 Respiratory Rate 18 16 Blood Pressure 131/81 H 131/81 H Blood Pressure Mean 97 97 Positive well nourished, well developed and obese General Appearance ED: well developed and NAD; Negative for pallor Nutritional Appearance: obese HEENT Reports moist mucous membranes HEENT Narrative: Head atraumatic normocephalic. Ears normal. Nares patent. Eyes PERRL and EOMs intact bilaterally General Eye ED: Negative for pale conjunctiva or scleral icterus Chest Wall inspection of chest normal Cardio regular rate and regular rhythm GI normal to inspection, nondistended, normoactive bowel sounds, non-tender, non-distended and no masses; Negative for hepatosplenomegaly Back/Spine no CVA tenderness Neuro oriented x3, CN's II-XII intact bilaterally and no sensory deficits noted Sensorium / Orientation: alert Psych mental status grossly normal Skin no rashes or lesions noted, no wounds and No skin turgor normal General Skin Exam: Negative for jaundice or pallor MDM MDM MDM Narrative Medical decision making narrative: Patient with urinary symptoms. Will obtain UA. If positive will send culture. Based on prior culture sensitivity we will treat with cephalexin. Because she has renal insufficiency with a GFR 42 will adjust dose of cephalexin to 500 every 8 hours. If urinalysis does not indicate infection we will pursue more testing. Lab Data Attestation: I reviewed the patient's lab results. Lab results narrative: Urine is consistent with infection. Urine culture was sent. Patient. Cephalexin Pyridium. Labs: Laboratory Results - last 24 hr 01/18/24 17:55 Urine Color Yellow Urine Clarity Cloudy Urine pH 5.0 Ur Specific [place] 1.025 Urine Protein 100 H Urine Glucose (UA) Normal Urine Ketones 5 H Urine Occult Blood 150 H Urine Nitrite Negative Urine Bilirubin 1 H Urine Urobilinogen 1 H Ur Leukocyte Esterase 500 H Urine RBC 5-10 SEEN Urine WBC 25-50 SEEN Ur Squamous Epith Cells 0-5 SEEN Urine Bacteria RARE Hyaline Casts 0-5 SEEN Urine Mucus 0 SEEN Discharge Plan Triage Chief Complaint: Complaint ED Provider: Ashu Edmond Dx/Rx/DC Orders Clinical Impression: Acute cystitis Instructions: ED Cystitis Female Adult Prescriptions: New phenazopyridine [Pyridium] 200 mg tablet 200 mg PO TID Qty: 10 0RF cephalexin [cephalexin] 500 mg capsule 500 mg PO 3XD Qty: 21 0RF No Action sertraline 100 mg tablet 100 mg PO DAILY Bystolic 20 mg tablet 20 mg PO DAILY chlorthalidone 25 mg tablet 25 mg PO DAILY metformin 1,000 mg tablet 1,000 mg PO BID Patient Comments: TAKE 1 TABLET BY MOUTH TWICE DAILY amlodipine 5 mg tablet 5 mg PO DAILY atorvastatin 10 MG tablet 40 mg PO DAILY aspirin 81 MG tablet,delayed release (DR/EC) 81 mg PO DAILY sulfamethoxazole-trimethoprim 800-160 mg tablet 1 tab PO BID Qty: 14 0RF oxycodone-acetaminophen [Percocet] 5-325 mg tablet 1 tab PO Q8H PRN (Reason: pain) 3 Days Qty: 10 0RF sulfamethoxazole-trimethoprim [Bactrim DS] 800-160 mg tablet 1 tab PO BID Qty: 14 0RF phenazopyridine [Pyridium] 200 mg tablet 200 mg PO BID PRN PRN (Reason: Pain) Qty: 10 0RF Primary Care Provider: Rafi Moraes Referrals: Rafi Moraes MD [Primary Care Provider] - 3-5 Days Disposition Disposition: Home, Self Care What to do if you have Problems For any increased pain, shortness of breath, bleeding, nausea or vomiting, chestpain, or any unexpected problems, contact your Primary Care Provider. Call [facility] ([phone]) or report to the closest Emergency Room. Call 911 if necessary. 01/18/241823 <Electronically signed by Ashu Edmond MD> Cosigner Signature (if applicable): CC: Dr. Rafi Moraes MD ~ Signed [facility] Work Phone: Discharge summary 01-23-2023 Note Date & Type Note Facility 01-23-2023 Discharge summary Note Date/Time January 23, 2023 9:15pm [facility] Medical Records Department [address] [place] [address] Emergency Department Summary 01/23/23 MR#: [id number] Acct: [id number] Name: CECY WILLAMS Rep #:[id number] : 1945 77 From: Hadley Sanchez MD PCP: Dr. Rafi Moraes MD Status:REG E R Location: ED HPI HPI - Female History of Present Illness Chief Complaint: Complaint Narrative Narrative: 77 year-old female past medical history of previous urinary tract infections, presents with pain at the end of urination for the last day. Her symptoms started yesterday. She took an Azo to help with the pain. She knows that she has a bladder infection. She denies any fevers or chills, no nausea or vomiting. No urinary frequency. She does have chronic back pain, but states when she has a kidney infection she usually has burning with urination which shedoes not currently. She presents to the emergency department because she has the symptoms of her usual bladder infections. [facility] Medical History Allergic rhinitis Benign essential HTN DM2 (diabetes mellitus, type 2) Home Medications aspirin 81 mg tablet,delayed release 81 mg PO DAILY 11/24/16 [History Last Taken Unknown] atorvastatin 10 mg tablet 40 mg PO DAILY 11/24/16 [History Last Taken Unknown] chlorthalidone 25 mg tablet 25 mg PO DAILY 05/18/20 [History Last Taken Unknown] meclizine 12.5 mg tablet 12.5 mg PO TID PRN PRN Dizziness 05/18/20 [History Last Taken Unknown] nebivolol 20 mg tablet (Bystolic) 20 mg PO DAILY 05/18/20 [History Last Taken Unknown] sertraline 100 mg tablet 100 mg PO DAILY 05/18/20 [History Last Taken Unknown] allopurinol 100 mg tablet 100 mg PO DAILY 07/21/22 [History Last Taken Unknown] glimepiride 2 mg tablet 2 mg PO DAILY 07/21/22 [History Last Taken Unknown] losartan 100 mg tablet 100 mg PO DAILY 07/21/22 [History Last Taken Unknown] phenazopyridine 200 mg tablet (Pyridium) 200 mg PO TID #10 tabs 07/21/22 [Rx Last Taken Unknown] sulfamethoxazole 800 mg-trimethoprim 160 mg tablet 1 tab PO BID #6 TABLETS 07/21/22 [Rx Last Taken Unknown] sulfamethoxazole 800 mg-trimethoprim 160 mg tablet (Bactrim DS) 1 tab PO BID #14tabs 01/23/23 [Rx Last Taken Unknown] Allergy/AdvReac Type Severity Reaction Status Date / Time lisinopril Allergy Shortness Verified 01/23/23 20:18 of breath nickel Allergy Rash Verified 01/23/23 20:18 nitrofurantoin Allergy Other Verified 01/23/23 20:18 [From Macrodantin] prednisolone Allergy Other Verified 01/23/23 20:18 Family History Father Asthma Sister Asthma Surgical History S/P D&C (status post dilation and curettage) S/P hysterectomy S/P laparoscopic cholecystectomy S/P right breast biopsy Social History Smoking Status: Former smoker alcohol intake: never ROS ROS ED ROS Narrative Constitutional: No fever, no chills. HEENT: No sore throat. No neck pain. No loss of vision. No rhinorrhea. Cardiovascular: No chest pain. No palpitations. No pedal edema. Respiratory: No cough, no shortness of breath. Abdominal: No abdominal pain. No nausea. No vomiting. Genitourinary: Positive pain at the end of urination/dysuria. No hematuria. Musculoskeletal: No myalgias. No arthralgias. Neurologic: No headaches. No dizziness. No lightheadedness. Skin: No rash. No change in color. Psychiatric: No depression. No anxiety. EXAM Physical Exam Narrative Exam Narrative: Afebrile. Vital signs noted. HEENT: Normocephalic. Atraumatic. PERRL, EOMI. Neck soft and supple. No pointtenderness or step off. Cardiovascular: Regular rate and rhythm. No murmurs, rubs, or gallops appreciated. Respiratory: No tachypnea. Lungs clear to auscultation bilaterally. Gastrointestinal: Abdomen soft, nontender, with normoactive bowel sounds. No rebound or guarding. No CVA tenderness to percussion bilaterally. Neurological: Awake. Alert. Nonfocal, nonlateralizing. Skin: No rash. Normal color. No pallor. Musculoskeletal: No pedal edema. Full range of motion extremities. Const Vital Signs: 01/23/23 20:16 Temperature 98.3 F Temperature Source Temporal Pulse Rate 80 Respiratory Rate 16 Blood Pressure 148/95 H Blood Pressure Mean 112 Pulse Ox 98 Oxygen Delivery Method Room Air MDM MDM MDM Narrative Medical decision making narrative: In the differential diagnosis is cystitis versus pyuria versus nonbacterial urinary tract infection symptoms. Urinalysis was obtained and dipstick is positive for leukocyte Estrace at 500 and occult blood at 10 but negative for nitrates. Microanalysis was obtained. In review, she has 25-50 WBCs with rare bacteria. She was given her first dose of Bactrim here in the emergency department and prescription written to take twice a day for the next 7 days as she states this is what usually works for her urinary tract infections. I feel she can be discharged safely home with follow-up. Return instructions were reviewed. Disposition is discharged home in stable condition. Lab Data Attestation: I reviewed the patient's lab results. Labs: Laboratory Results - last 24 hr 01/23/23 20:25 Urine Color Yellow Urine Clarity Sl. Cloudy Urine pH 6.0 Ur Specific [place] 1.020 Urine Protein 30 H Urine Glucose (UA) Normal Urine Ketones Negative Urine Occult Blood 10 H Urine Nitrite Negative Urine Bilirubin Negative Urine Urobilinogen 1 H Ur Leukocyte Esterase 500 H Urine RBC 0 SEEN Urine WBC 25-50 SEEN Ur Squamous Epith Cells 0-5 SEEN Urine Bacteria RARE Urine Mucus 0 SEEN Discharge Plan Triage Chief Complaint: Complaint ED Provider: Hadley Sanchez Dx/Rx/DC Orders Clinical Impression: UTI (urinary tract infection), Dysuria, DM2 (diabetes mellitus, type 2) Instructions: ED Cystitis Female Adult Prescriptions: New sulfamethoxazole-trimethoprim [Bactrim DS] 800-160 mg tablet 1 tab PO BID Qty: 14 0RF No Action sertraline 100 mg tablet 100 mg PO DAILY Bystolic 20 mg tablet 20 mg PO DAILY chlorthalidone 25 mg tablet 25 mg PO DAILY meclizine 12.5 mg tablet 12.5 mg PO TID PRN PRN (Reason: Dizziness) atorvastatin 10 MG tablet 40 mg PO DAILY aspirin 81 MG tablet,delayed release (DR/EC) 81 mg PO DAILY allopurinol 100 mg tablet 100 mg PO DAILY Label Comments: TAKE 1 TABLET BY MOUTH ONCE DAILY glimepiride 2 mg tablet 2 mg PO DAILY Label Comments: TAKE 1 TABLET BY MOUTH ONCE DAILY losartan 100 mg tablet 100 mg PO DAILY Label Comments: TAKE 1 TABLET BY MOUTH ONCE DAILY phenazopyridine [Pyridium] 200 mg tablet 200 mg PO TID Qty: 10 0RF sulfamethoxazole-trimethoprim [sulfamethoxazole-trimethoprim] 800-160 mg tablet 1 tab PO BID Qty: 6 0RF Primary Care Provider: Rafi Moraes Referrals: Rafi Moraes MD [Primary Care Provider] - 3-5 Days if not improving Disposition Disposition: Home, Self Care What to do if you have Problems For any increased pain, shortness of breath, bleeding, nausea or vomiting, chestpain, or any unexpected problems, contact your Primary Care Provider. Call [facility] ([phone]) or report to the closest Emergency Room. Call 911 if necessary. 01/23/232147 <Electronically signed by Hadley Sanchez MD> Cosigner Signature (if applicable): CC: Dr. Rafi Moraes MD ~ Signed [facility] Work Phone: Evaluation note Note Date & Type Note Facility Evaluation note No assessment information availa ble [facility] Work Phone: Evaluation note Note Date & Type Note Facility Evaluation note Diagnosis Onset Date Acute urinary tract infection acute [facility] Work Phone: Hospital Discharge instructions Note Date & Type Note Facility Hospital Discharge instructions Additional Instructions Urine positive for infection. Take antibiotic and Pyridium as prescribed. Follow-up with your doctor. [facility] Work Phone: Reason for referral (narrative) Note Date & Type Note Facility Reason for referral (narrative) No reason for referral information available [facility] Work Phone: Chief Complaint and Reason for Visit Chief Complaint cant pee Chief Complaint Chief Complaint RIGHT KNEE PAIN Chief Complaint RIGHT KNEE PAIN CONCERN FOR UTI Reason for Visit Acute urinary tract infection Chief Complaint RIGHT KNEE PAIN CONCERN FOR UTI FALL Reason for Visit Acute urinary tract infection Chief Complaint FALL Chief Complaint URINARY FREQUENCY/ISSUES Chief Complaint URINARY FREQUENCY/ISSUES urinary Chief Complaint URINARY FREQUENCY/ISSUES urinary Chief Complaint URINARY FREQUENCY/IS SUES urinary CONCERN FOR UTI Advance Directives No Advanced Directives Records Found Advance Directive Response Recorded Date/ Time Advance Directives No November 11:49pm Living Will No July 21 8:18pm Power of Clip Baker No July 21 8:18pm Advance Directive Response Recorded Date/ Time Advance Directives No November 10:49pm Living Will No January 23, 8:58pm Power of Clip Baker No January 23, 2023 8:58pm Advance Directive Response Recorded Date/ Time Advance Directives No November 11:49pm Living Will No January 23 023 9:58pm Power of Clip Baker No January 23, 2023 9:58pm Advance Directive Response Recorded Date/ Time Advance Directives No May 20 2:33pm Living Will No May 20, 2023 2:33pm Power of Clip Baker No May 20 2:33pm Advance Directive Response Recorded Date/ Time Advance Directives No May 20 2:33pm Living Will No July 03, 2023 5:56pm Power of Clip Baker No July 03 5:56pm Advance Directive Response Recorded Date/ Time Advance Directives No May 20 2:33pm Living Will No October 04 6:19pm Power of Clip Baker No October 04, 2023 6:19pm Advance Directive Response Recorded Date/ Time Advance Directives No May 20 1:33pm Living Will No October 04 5:19pm Power of Clip Baker No October 04, 2023 5:19pm Advance Directive Response Recorded Date/ Time Advance Directives No May 20 1:33pm Living Will No December 13 9:11pm Power of Clip Baker No December 13, 2023 9:11pm Advance Directive Response Recorded Date/ Time Advance Directives No May 20 1:33pm Living Will No January 18 024 5:51pm Power of Clip Baker No January 18, 2024 5:51pm Advance Directive Response Recorded Date/ Time Advance Directives No May 20 2:33pm Living Will No January 18 024 6:51pm Power of Clip Baker No January 18, 2024 6:51pm Advance Directive Response Recorded Date/ Time Advance Directives No May 20 2:33pm Summary Purpose Family History No Family History Records Found Additional Source Comments Goals (unrecognized section and content) Goals may be documented in a n alternate sectionGoals may be documented in an alternate sectionGoals may be documented in an alternate sectionGoals may be documented in an alternate sectionGoals may be documented in an alternate sectionGoals may be documented in an alternate sectionGoals may be documented in an alternate sectionGoals may be documented in an alternate sectionGoals may be documented in an alternate sectionGoals may be documented in an alternate sectionGoals may be documented in an alternate sectionGoals may be documented in an alternate sectionGoals may be documented in an alternate sectionGoals may be documented in an alternate sectionGoals may be documented in an alternate sectionGoals may be documented in an alternate sectionGoals may be documented in an alternate section Care Teams (unrecognized sec tion and content) Team Status: Active Member Role Status Dates Dr. Rafi Moraes MD Family Provider Active Dr. Rafi Moraes MD Primary Care Provider Active Team Status: Inactive Member Role Status Dates Dr. Rafi Moraes MD Primary Care Provider Active Hadley Sanchez MD Emergency Provider Active Team Status: Inactive Member Role Status Dates Dr. Rafi Moraes MD Primary Care Provider Active Hadley Sanchez MD Attending Provider, Emergency Provid er Active Team Status: Inactive Member Role Status Dates Dr. Rafi Moraes MD Primary Care Provi david, Attending Provider, Referring Provider Active Team Status: Inactive Member Role Status Dates Dr. Rafi Moraes MD Primary Care Provider, Referring Provider Active ADOLPH Fuentes Attending Provider Active Team Status: Inactive Member Role Status Dates Dr. Rafi Moraes MD Primary Care Provider Active ADOLPH Fuentes Attending Provider Active Team Status: Inactive Member Role Status Dates Dr. Rafi Moraes MD Primary Care Provider Active Dr. Ha Krause DO Emergency Provider Active Team Status: Inactive Member Role Status Dates Dr. Rafi Moraes MD Primary Care Provider Active Dr. Ha Krause DO Attending Provider, Emergency Pro vider Active Team Status: Inactive Member Role Status Dates Dr. Rafi Moraes MD Primary Care Provider, Attending Provider Active Team Status: Inactive Member Role Status Dates Dr. Rafi Moraes MD Primary Care Provider Active Dr. Darren Delaney DO Emergency Provider Active Team Status: Inactive Member Role Status Dates Dr. Rafi Moraes MD Primary Care Provider, Referring Provider Active Victoriano HOFFMAN PA Attending Provider Active Team Status: Inactive Member Role Status Dates Dr. Rafi Moraes MD Primary Care Provider Active Dr. Darren Delaney DO Attending Provider, Emergency Provide r Active Team Status: Inactive Member Role Status Dates Dr. Rafi Moraes MD Primary Care Provider Active Victoriano HOFFMAN PA Attending Provider, Referring Pr ovider Active Team Status: Inactive Member Role Status Dates Dr. Rafi Moraes MD Primary Care Provider Active Dr. Andrew Garcia DO Emergency Provider Active Team Status: Inactive Member Role Status Dates Dr. Rafi Moraes MD Primary Care Provider Active Dr. Andrew Garcia DO Attending Provider, Emergency P rovider Active Team Status: Inactive Member Role Status Dates Dr. Rafi Moraes MD Primary Care Provider Active Dr. Ashu Edmond MD Emergency Provider Active Team Status: Inactive Member Role Status Dates Dr. Rafi Moraes MD Primary Care Provider Active Dr. Ashu Edmond MD Attending Provider, Emergency Provi david Active Team Status: Active Member Role Status Dates Dr. Rafi Moraes MD Primary Care Provider Active ADOLPH Branch Attending Provider Active Team Status: Inactive Member Role Status Dates Dr. Rafi Moraes MD Primary Care Provider Active ADOLPH Branch Attending Provider Active Team Status: Inactive Member Role Status Dates Dr. Rafi Moraes MD Primary Care Provider Active Start: November 18, 2024 End: November 18, 2024 Dr. Rafi Moraes MD Attending Provider Active Start: November 18, 2024 End: November 18, 2024 Dr. Rafi Moraes MD Referring Provider Active Start: November 18, 2024 End: November 18, 2024 Team Status: Inactive Member Role Status Dates Dr. Rafi Moraes MD Primary Care Provider Active Start: February 15, 2025 End: February 15, 2025 Dr. Rafi Moraes MD Attending Provider Active Start: February 15, 2025 End: February 15, 2025 Dr. Rafi Moraes MD Referring Provider Active Start: February 15, 2025 End: February 15, 2025 Team Status: Inactive Member Role Status Dates Dr. Rafi Moraes MD Primary Care Provider Active Start: February 25, 2025 End: February 25, 2025 Dr. Rafi Moraes MD Attending Provider Active Start: February 25, 2025 End: February 25, 2025 Dr. Rafi Moraes MD Referring Provider Active Start: February 25, 2025 End: February 25, 2025 INFORMATION SOURCE (unrecogn ized section and content) DATE CREATED AUTHOR 05/23/2025 [facility] FOR RECORDS PERTAINING TO PATIENTS WHO ARE OR HAVE BEEN ENROLLED IN A CHEMICAL DEPENDENCY/SUBSTANCEABUSE PROGRAM, SOME INFORMATION MAY BE OMITTED. This clinical summary was aggregated from multiple sources. Caution should be exercised in using it in the provision of clinical care. This summary normalizes information from multiple sources, and as a consequence, information in this document may materially change the coding, format and clinical context of patient data. In addition, data may be omitted in some cases. CLINICAL DECISIONS SHOULD BE BASED ON THE PRIMARY CLINICAL RECORDS. [employer] provides no warranty or guarantee of the accuracy or completeness of information in this document.
--- OUTSIDE RECORDS SUMMARY | 2025-06-03 22:20 | XMS RPT_ITS | CCD ---
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 Rafi Moraes Primary [...] Lisinopril Drug Allergy 2 Shortness of breath [facility] (17 sources) nickel Drug Allergy 2 Rash [facility] (17 sources) Nitrofurantoin Drug Allergy 2 Other [facility] Comment on above: CONFUSED (17 sources) prednisoLONE Drug Allergy 2 Other [facility] Comment on above: CONFUSED AND MEAN (1 source) Lisinopril Drug Allergy 4 [facility] Repository (1 source) nickel Drug Allergy 4 [facility] Repository (1 source) Nitrofurantoin Drug Allergy 4 [facility] Repository (1 source) prednisoLONE Drug Allergy 4 [facility] Repository Medications Current Medications Medication Drug Class(es) [...] Ratio,Random URon 05-20-2025 MALB:CREAT 56.5 mg/g CRE [facility] Comment on above: Result Comment: AMENDED REPORT 05/20/25 0819 MALB:CREAT previously reported as: 565.4 mg/g CRE Performed By: #### L 502.0250, L500.2500, L500.4100, L501.9985 #### [facility] Laboratory [address] [place], [address] Albumin DL <= 20 mg/L (U) [M ass/Vol]Ordered By: Rafi Moraes on 02-25-2025 Urine Random Microalbumin 147.0 mg/L NO RANGE E [facility]. [facility] Anion gap in Serum or Plasma Ordered By: Rafi Moraes on 02-25-2025 Anion gap [Moles/Vol] 20 mmol/L High 5- [facility] BUN/creatinine ratioOrdered By: Rafi Moraes on 02-25-2025 Urea nitrogen/Creatinine [Mass ratio] 17.5 mg/mg - [facility] Basic Metabolic Profile (BMP )on 02-25-2025 BUN/CRE 17.5 RATIO Normal 09-20 [facility] Comment on above: Performed By: #### L 502.0250, L500.2500, L500.4100, L501.9985 #### [facility] Laboratory [address] [place], [address] Calcium [Mass/Vol] 9.2 mg/dL Normal 7.6-11.0 [facility] Comment on above: Performed By: #### L 502.0250, L500.2500, L500.4100, L501.9985 #### [facility] [address] [place], [address] Chloride [Moles/Vol] 102 mmol/L Normal 98-108 [facility] Comment on above: Performed By: #### L 502.0250, L500.2500, L500.4100, [id number] #### [facility] [address] [place], [address] CO2 [Moles/Vol] 15.9 mmol/L Low 21.0-32.0 [facility] Comment on above: Performed By: #### L 502.0250, L500.2500, L500.4100, [id number] #### [facility] Laboratory [address] [place], [address] Creatinine [Mass/Vol] 1.52 mg/dL High 0.70-1.20 [facility] Comment on above: Performed By: #### L 502.0250, L500.2500, L500.4100, L501.9985 #### [facility] Laboratory [address] [place], [address] GAP 20 High 5-15 [facility] Comment on above: Performed By: #### L 502.0250, L500.2500, L500.4100, [id number] #### [facility] Laboratory [address] [place], [address] GFR/1.73 sq M.predicted among non-blacks MDRD (S/P/Bld) [Vol rate/Area] 35 mL/min/{1.73_m2} Low >60 [facility] Comment on above: Result Comment: mL/m in/1.73m2 CKD-EPI Creatinine Equation (2020) Performed By: #### L 502.0250, L500.2500, L500.4100, [id number] #### [facility] [address] [place], [address] Glucose [Mass/Vol] 140 mg/dL High 70-99 [facility] Comment on above: Performed By: #### L 502.0250, L500.2500, L500.4100, [id number] #### [facility] [address] [place], [address] Potassium [Moles/Vol] 3.8 mmol/L Normal 3.3-5.1 [facility] Comment on above: Performed By: #### L 502.0250, L500.2500, L500.4100, [id number] #### [facility] Laboratory [address] [place], [address] Sodium [Moles/Vol] 138 mmol/L Normal 133-145 [facility] Comment on above: Performed By: #### L 502.0250, L500.2500, L500.4100, [id number] #### [facility] [address] [place], [address] Urea nitrogen [Mass/Vol] 27 mg/dL High 4-19 [facility] Comment on above: Performed By: #### L 502.0250, L500.2500, L500.4100, [id number] #### [facility] [address] [place], [address] Calculated very low density lipoprotein (VLDL) cholesterol measurementOrdered By: Rafi Moraes on 02-25-2025 VLDL Cholesterol 50 mg/dL High 5-40 [facility] Carbon dioxide, total [Moles /volume] in Central venous bloodOrdered By: Rafi Moraes on 02-25-2025 CO2 [Moles/Vol] 15.9 mmol/L Low 21.0-32.0 [facility] Chloride assayOrdered By: Adolph Moraes on 02-25-2025 Chloride [Moles/Vol] 102 mmol/L 98-108 [facility] Creatinine Unsp time (U) [Ma ss/Vol]Ordered By: Rafi Moraes on 02-25-2025 Creatinine (U) [Mass/Vol] 260.00 mg/dL High 28.00-21 7.00 [facility] GFR/1.73 sq M.predicted cassia g non-blacks MDRD (S/P/Bld) [Vol rate/Area]Ordered By: Rafi Moraes on 02-25-2025 Estimated GFR (MDRD) Non-Af Amer 35 Low >60 [facility] Comment on above: mL/min/1.73m2 CKD-EP I Creatinine Equation (2020) Hemoglobin A1con 02-25-2025 HbA1c (Bld) [Mass fraction] 6.9 % Normal <=5.6 [facility] Comment on above: Performed By: #### L 502.0250, L500.2500, L500.4100, L501.9985 #### [facility] Laboratory [address] [place], [address] Hemoglobin A1c percentageOrd ered By: Rafi Moraes on 02-25-2025 HbA1c (Bld) [Mass fraction] 6.9 % >5.7 [facility] LDL calc ser/plasOrdered By: Rafi Moraes on 02-25-2025 LDL Cholesterol, Calculated 91 mg/dL [facility] Comment on above: Xvnmbrmipl=613-402 m g/dL & Higher Eakf=249 mg/dL or greater Lipid Profileon 02-25-2025 CHOL:HDL 4.16 Normal [facility] Comment on above: Performed By: #### L 502.0250, L500.2500, L500.4100, [id number] #### [facility] [address] [place], [address] Cholesterol [Mass/Vol] 186 mg/dL Normal <=200 [facility] Comment on above: Result Comment: Chol esterol level, Desirable <200 mg/dL Borderline high cholesterol 200-239 mg/dL High cholesterol >=240 mg/dL Recommendations of the NCEP Adult Treatment Panel for the following risk-cutoff thresholds for the [place] population. Performed By: #### L 502.0250, L500.2500, L500.4100, L501.9985 #### [facility] [address] [place], [address] Cholesterol in HDL [Mass/Vol] 45 mg/dL Normal [facility] Comment on above: Result Comment: Celeste onal Cholesterol Education Program (NCEP) guidelines: <40 mg/dL: Low HDL-cholesterol (major risk factor for CHD) >= 60 mg/dL: High HDL-cholesterol (negative risk factor for CHD) HDL-cholesterol is affected by a number of factors, e.g. smoking, exercise, hormones, sex and age. Performed By: #### L 502.0250, L500.2500, L500.4100, L501.9985 #### [facility] [address] [place], [address] Cholesterol in LDL [Mass/Vol] 91 mg/dL Normal [facility] Comment on above: Result Comment: Bord fpqeqp=095-627 mg/dL Higher Poua=087 mg/dL or greater Performed By: #### L 502.0250, L500.2500, L500.4100, [id number] #### [facility] [address] [place], [address] Cholesterol in VLDL [Mass/Vol] 50 mg/dL High 5-40 [facility] Comment on above: Performed By: #### L 502.0250, L500.2500, L500.4100, [id number] #### [facility] [address] [place], [address] Triglyceride [Mass/Vol] 250 mg/dL High [facility] Comment on above: Result Comment: The drugs N-Acetylcysteine and Metamizole may falsely depress this assay. Normal range: <150 mg/dL Borderline High: 150-199 mg/dL High: 200-499 mg/dL Very High: >500 mg/dL Performed By: #### L 502.0250, L500.2500, L500.4100, L501.9985 #### [facility] [address] [place], [address] Microalbumin/creat ratio urO rdered By: Rafi Moraes on 02-25-2025 Urine Microalbumin/Creatinine Ratio 565.4 mg/g CRE [facility] Potassium (Unsp spec) [Mass/ Vol]Ordered By: Rafi Moraes on 02-25-2025 Potassium [Moles/Vol] 3.8 mmol/L 3.3-5.1 [facility] Screening total cholesterol/ high density lipoprotein (HDL) cholesterol ratioOrdered By: Rafi Moraes on 02-25-2025 Cholesterol.total/Cholest lamont in HDL [Mass ratio] 4.16 {ratio} [facility] Serum creatinine measurement (mass/volume)Ordered By: Rafi Moraes on 02-25-2025 Creatinine [Mass/Vol] 1.52 mg/dL High 0.70-1.20 [facility] Serum glucose measurement (m ass/volume)Ordered By: Rafi Moraes on 02-25-2025 Glucose [Mass/Vol] 140 mg/dL High 70-99 [facility] Serum or plasma calcium laurita urement (mass/volume)Ordered By: Rafi Moraes on 02-25-2025 Calcium [Mass/Vol] 9.2 mg/dL 7.6-11.0 [facility] Serum or plasma cholesterol in HDL measurement (mass/volume)Ordered By: Rafi Moraes on 02-25-2025 Cholesterol in HDL [Mass/Vol] 45 mg/dL >40 [facility] Comment on above: National Cholesterol Education Program (NCEP) guidelines:<40 mg/dL: Low HDL-cholesterol (major risk factor for CHD)>= 60 mg/dL: High HDL-cholesterol (negative risk factor for CHD)HDL-cholesterol is affected by a number of factors, e.g. smoking, exercise, hormones, sex and age. Serum or plasma cholesterol measurement (mass/volume)Ordered By: Rafi Moraes on 02-25-2025 Cholesterol [Mass/Vol] 186 mg/dL <201 [facility] Comment on above: Cholesterol level, D esirable <200 mg/dLBorderline high cholesterol 200-239 mg/dLHigh cholesterol >=240 mg/dLRecommendations of the NCEP Adult Treatment Panel for the following risk-cutoff thresholds for the [place] population. Serum or plasma urea nitroge n measurement (mass/volume)Ordered By: Rafi Moraes on 02-25-2025 Urea nitrogen [Mass/Vol] 27 mg/dL High 4-19 [facility] Sodium levelOrdered By: Rafi Moraes on 02-25-2025 Sodium [Moles/Vol] 138 mmol/L 133-145 [facility] Triglycerides measurementOrd ered By: Rafi Moraes on 02-25-2025 Triglyceride [Mass/Vol] 250 mg/dL High <199 [facility] Comment on above: The drugs N-Acetylcy steine and Metamizole may falsely depress this assay. Normal range: <150 mg/dLBorderline High: 150-199 mg/dLHigh: 200-499 mg/dLVery High: >500 mg/dL Serum or plasma uric acid me asurement (mass/volume)Ordered By: Rafi Moraes on 02-15-2025 Urate [Mass/Vol] 8.8 mg/dL High 2.6-6.0 [facility] Comment on above: The drugs N-Acetylcy steine and Metamizole may falsely depress this assay. Uric Acidon 02-15-2025 URIC 8.8 mg/dL High 2.6-6.0 [facility] Comment on above: Result Comment: The drugs N-Acetylcysteine and Metamizole may falsely depress this assay. Performed By: #### L 501.1400 #### [facility] Laboratory [address] [place], [address] Albumin to globulin ratioOrd ered By: Rafi Moraes on 11-18-2024 Albumin/Globulin [Mass ratio] 0.8 {ratio} Low 0.9-2.4 [facility] Bilirubin, totalOrdered By: Rafi Moraes on 11-18-2024 Bilirubin [Mass/Vol] 0.50 mg/dL 0.20-1.00 [facility] Comment on above: For patients on eltr ombopag therapy, use of Dimension [place] TBIL is not recommended. Blood urea nitrogen (BUN)/cr eatinine ratioOrdered By: Rafi Moraes on 11-18-2024 Urea nitrogen/Creatinine [Mass ratio] 15.2 mg/mg 10-20 [facility] Carbon dioxide measurementOr dered By: Rafi Moraes on 11-18-2024 CO2 [Moles/Vol] 24.0 mmol/L 21.0-32.0 [facility] Chloride measurementOrdered By: Rafi Moraes on 11-18-2024 Chloride [Moles/Vol] 103 mmol/L 98-107 [facility] Comprehensive Metabolic Prof ilon 11-18-2024 Albumin [Mass/Vol] 3.3 g/dL Normal 3.2-5.0 [facility] Comment on above: Performed By: #### L 500.4050, L500.4100 #### [facility] [address] [place], [address] Albumin/Globulin [Mass ratio] 0.8 {ratio} Low 0.9-2.4 [facility] Comment on above: Performed By: #### L 500.4050, L500.4100 #### [facility] [address] [place], [address] ALK P 59 U/L Normal 45-117 [facility] Comment on above: Performed By: #### L 500.4050, L500.4100 #### [facility] [address] [place], [address] ALT [Catalytic activity/Vol] 20 U/L Normal 13-56 [facility] Comment on above: Performed By: #### L 500.4050, L500.4100 #### [facility] [address] [place], [address] AST [Catalytic activity/Vol] 11 U/L Low 15-37 [facility] Comment on above: Performed By: #### L 500.4050, L500.4100 #### [facility] [address] [place], [address] Bilirubin [Mass/Vol] 0.50 mg/dL Normal 0.20-1.00 [facility] Comment on above: Result Comment: For patients on eltrombopag therapy, use of Dimension [place] TBIL is not recommended. Performed By: #### L 500.4050, L500.4100 #### [facility] [address] [place], [address] BUN/CRE 15.2 RATIO Normal 10-20 [facility] Comment on above: Performed By: #### L 500.4050, L500.4100 #### [facility] [address] [place], [address] CA,Total 9.1 mg/dL Normal 8.5-10.1 [facility] Comment on above: Performed By: #### L 500.4050, L500.4100 #### [facility] [address] [place], [address] Chloride [Moles/Vol] 103 mmol/L Normal 98-107 [facility] Comment on above: Performed By: #### L 500.4050, L500.4100 #### [facility] [address] [place], [address] CO2 [Moles/Vol] 24.0 mmol/L Normal 21.0-32.0 [facility] Comment on above: Performed By: #### L 500.4050, L500.4100 #### [facility] [address] [place], [address] Creatinine [Mass/Vol] 1.32 mg/dL High 0.55-1.02 [facility] Comment on above: Result Comment: The validity of the calculated GFR GFRAA in patients over 70 years has not been determined. Clinical correlation is essential. Performed By: #### L 500.4050, L500.4100 #### [facility] [address] [place], [address] EST GFR - AA 50 mL/min Low >60 [facility] Comment on above: Result Comment: Afri can [place] GFR Calc Performed By: #### L 500.4050, L500.4100 #### [facility] [address] [place], [address] GAP 9 Normal 5-15 [facility] Comment on above: Performed By: #### L 500.4050, L500.4100 #### [facility] [address] [place], [address] GFR/1.73 sq M.predicted among non-blacks MDRD (S/P/Bld) [Vol rate/Area] 41 mL/min/{1.73_m2} Low >60 [facility] Comment on above: Result Comment: Non- GFR Calc Performed By: #### L 500.4050, L500.4100 #### [facility] [address] [place], [address] Globulin (S) [Mass/Vol] 4.1 g/dL Normal 2.2-4.2 [facility] Comment on above: Performed By: #### L 500.4050, L500.4100 #### [facility] [address] [place], [address] Glucose [Mass/Vol] 208 mg/dL High 74-106 [facility] Comment on above: Result Comment: Gluc ose result greater than or equal to 200 mg/dL suggests DIABETES MELLITUS per A.D.A. criteria. Performed By: #### L 500.4050, L500.4100 #### [facility] [address] [place], [address] Potassium [Moles/Vol] 3.7 mmol/L Normal 3.5-5.1 [facility] Comment on above: Performed By: #### L 500.4050, L500.4100 #### [facility] [address] [place], [address] Sodium [Moles/Vol] 136 mmol/L Normal 136-145 [facility] Comment on above: Performed By: #### L 500.4050, L500.4100 #### [facility] [address] [place], [address] T PROT 7.4 g/dL Normal 6.4-8.2 [facility] Comment on above: Performed By: #### L 500.4050, L500.4100 #### [facility] [address] [place], [address] Urea nitrogen [Mass/Vol] 20 mg/dL High 7-18 [facility] Comment on above: Performed By: #### L 500.4050, L500.4100 #### [facility] [address] [place], [address] Estimated glomerular filtrat ion rate (GFR) AmericanOrdered By: Rafi Moraes on 11-18-2024 Estimated GFR (MDRD) Amer 50 mL/min Low >60 [facility] Comment on above: GFR Calc Glomerular filtration rate ( GFR) estimationOrdered By: Rafi Moraes on 11-18-2024 Estimated GFR (MDRD) Non-Af Amer 41 mL/min Low >60 [facility] Comment on above: Non- GFR Calc Glucose measurementOrdered B y: Rafi Moraes on 11-18-2024 Glucose [Mass/Vol] 208 mg/dL High 74-106 [facility] Comment on above: Glucose result great er than or equal to 200 mg/dLsuggests DIABETES MELLITUS per A.D.A. criteria. High density lipoprotein (HD L) measurementOrdered By: Rafi Moraes on 11-18-2024 Cholesterol in HDL [Mass/Vol] 46 mg/dL >40 [facility] Comment on above: The drugs N-Acetylcy steine and Metamizole may falsely depress this assay. Reference Range HDL <40 mg/dL Low HDL Cholesterol HDL >or= 60 mg/dL High HDL Cholesterol Laboratory - Chemistry and C hemistry - challengeOrdered By: Rafi Moraes on 11-18-2024 AST [Catalytic activity/Vol] 11 U/L Low 15-37 [facility] Lipid Profileon 11-18-2024 Cholesterol [Mass/Vol] 169 mg/dL Normal 200 [facility] Comment on above: Result Comment: <200 mg/dL Desirable 200-240 mg/dL Borderline >240 mg/dL High Risk Performed By: #### L 500.4050, L500.4100 #### [facility] [address] [place], [address] Cholesterol in HDL [Mass/Vol] 46 mg/dL Normal [facility] Comment on above: Result Comment: The drugs N-Acetylcysteine and Metamizole may falsely depress this assay. Reference Range HDL <40 mg/dL Low HDL Cholesterol HDL >or= 60 mg/dL High HDL Cholesterol Performed By: #### L 500.4050, L500.4100 #### [facility] [address] [place], [address] Cholesterol in LDL [Mass/Vol] 69 mg/dL Normal 0-130 [facility] Comment on above: Performed By: #### L 500.4050, L500.4100 #### [facility] [address] [place], [address] Cholesterol in VLDL [Mass/Vol] 54 mg/dL High 5-40 [facility] Comment on above: Performed By: #### L 500.4050, L500.4100 #### [facility] [address] [place], [address] Triglyceride [Mass/Vol] 270 mg/dL High [facility] Comment on above: Result Comment: The drugs N-Acetylcysteine and Metamizole may falsely depress this assay. Serum Triglycerides Reference Interval Normal <150 mg/dL Borderline high 150 - 199 mg/dL High 200 - 499 mg/dL Very High > or = 500 mg/dL Performed By: #### L 500.4050, L500.4100 #### [facility] [address] [place], [address] Low density lipoprotein (LDL ) cholesterol measurementOrdered By: Rafi Moraes on 11-18-2024 Cholesterol in LDL [Mass/Vol] 69 mg/dL 0-130 [facility] Potassium measurementOrdered By: Rafi Moraes on 11-18-2024 Potassium [Moles/Vol] 3.7 mmol/L 3.5-5.1 [facility] Serum anion gap measurementO rdered By: Rafi Moraes on 11-18-2024 Anion gap [Moles/Vol] 9 mmol/L 5-15 [facility] Serum globulin measurementOr dered By: Rafi Moraes on 11-18-2024 Globulin (S) [Mass/Vol] 4.1 g/dL 2.2-4.2 [facility] Serum or plasma alanine spencer otransferase (ALT) measurementOrdered By: Rafi Moraes on 11-18-2024 ALT [Catalytic activity/Vol] 20 U/L 13-56 [facility] Serum or plasma albumin laurita urement (mass/volume)Ordered By: Rafi Moraes on 11-18-2024 Albumin [Mass/Vol] 3.3 g/dL 3.2-5.0 [facility] Serum or plasma alkaline samm sphatase measurementOrdered By: Rafi Moraes on 11-18-2024 ALP [Catalytic activity/Vol] 59 U/L 45-117 [facility] Serum or plasma calcium laurita urement (mass/volume)Ordered By: Rafi Moraes on 11-18-2024 Calcium [Mass/Vol] 9.1 mg/dL 8.5-10.1 [facility] Serum or plasma cholesterol measurement (mass/volume)Ordered By: Rafi Moraes on 11-18-2024 Cholesterol [Mass/Vol] 169 mg/dL <200 [facility] Comment on above: <200 mg/dL Desirable 200-240 mg/dL Borderline >240 mg/dL High Risk Serum or plasma creatinine m easurement (mass/volume)Ordered By: Rafi Moraes on 11-18-2024 Creatinine [Mass/Vol] 1.32 mg/dL High 0.55-1.02 [facility] Comment on above: The validity of the calculated GFR & GFRAA in patients over 70 years has not been determined. Clinical correlation is essential. Serum or plasma urea nitroge n measurement (mass/volume)Ordered By: Rafi Moraes on 11-18-2024 Urea nitrogen [Mass/Vol] 20 mg/dL High 7-18 [facility] Sodium levelOrdered By: Rafi Moraes on 11-18-2024 Sodium [Moles/Vol] 136 mmol/L 136-145 [facility] Total proteinOrdered By: Aster Moraes on 11-18-2024 Protein [Mass/Vol] 7.4 g/dL 6.4-8.2 [facility] Triglycerides measurementOrd ered By: Rafi Moraes on 11-18-2024 Triglyceride [Mass/Vol] 270 mg/dL High <199 [facility] Comment on above: The drugs N-Acetylcy steine and Metamizole may falsely depress this assay.Serum Triglycerides Reference Interval Normal <150 mg/dL Borderline high 150 - 199 mg/dL High 200 - 499 mg/dL Very High > or = 500 mg/dL Very low density lipoprotein (VLDL) cholesterol measurementOrdered By: Rafi Moraes on 11-18-2024 VLDL Cholesterol 54 mg/dL High 5-40 [facility] Comprehensive Metabolic Prof ilon 08-19-2024 Albumin [Mass/Vol] 3.6 g/dL Normal 3.2-5.0 [facility] Comment on above: Performed By: #### L 500.4050, L500.4100, [id number] #### [facility] [address] [place], [address] Albumin/Globulin [Mass ratio] 0.9 {ratio} Normal 0.9-2.4 [facility] Comment on above: Performed By: #### L 500.4050, L500.4100, [id number] #### [facility] [address] [place], [address] ALK P 60 U/L Normal 45-117 [facility] Comment on above: Performed By: #### L [id number], [id number], [id number] #### [facility] [address] [place], [address] ALT [Catalytic activity/Vol] 21 U/L Normal 13-56 [facility] Comment on above: Performed By: #### L [id number], [id number], [id number] #### [facility] [address] [place], [address] AST [Catalytic activity/Vol] 16 U/L Normal 15-37 [facility] Comment on above: Performed By: #### L [id number], [id number], [id number] #### [facility] [address] [place], [address] Bilirubin [Mass/Vol] 0.50 mg/dL Normal 0.20-1.00 [facility] Comment on above: Result Comment: For patients on eltrombopag therapy, use of Dimension [place] TBIL is not recommended. Performed By: #### L 500.4050, L500.4100, [id number] #### [facility] [address] [place], [address] BUN/CRE 18.2 RATIO Normal 10-20 [facility] Comment on above: Performed By: #### L [id number], [id number], [id number] #### [facility] [address] [place], [address] CA,Total 9.8 mg/dL Normal 8.5-10.1 [facility] Comment on above: Performed By: #### L 500.4050, [id number], [id number] #### [facility] [address] [place], [address] Chloride [Moles/Vol] 102 mmol/L Normal 98-107 [facility] Comment on above: Performed By: #### L 500.4050, [id number], [id number] #### [facility] [address] [place], [address] CO2 [Moles/Vol] 24.0 mmol/L Normal 21.0-32.0 [facility] Comment on above: Performed By: #### L [id number], [id number], [id number] #### [facility] [address] [place], [address] Creatinine [Mass/Vol] 1.37 mg/dL High 0.55-1.02 [facility] Comment on above: Result Comment: The validity of the calculated GFR GFRAA in patients over 70 years has not been determined. Clinical correlation is essential. Performed By: #### L 500.4050, L500.4100, [id number] #### [facility] [address] [place], [address] EST GFR - AA 48 mL/min Low >60 [facility] Comment on above: Result Comment: Afri can [place] GFR Calc Performed By: #### L [id number], [id number], [id number] #### [facility] [address] [place], [address] GAP 11 Normal 5-15 [facility] Comment on above: Performed By: #### L 500.4050, [id number], [id number] #### [facility] [address] [place], [address] GFR/1.73 sq M.predicted among non-blacks MDRD (S/P/Bld) [Vol rate/Area] 40 mL/min/{1.73_m2} Low >60 [facility] Comment on above: Result Comment: Non- GFR Calc Performed By: #### L 500.4050, L500.4100, [id number] #### [facility] [address] [place], [address] Globulin (S) [Mass/Vol] 4.2 g/dL Normal 2.2-4.2 [facility] Comment on above: Performed By: #### L [id number], [id number], [id number] #### [facility] [address] [place], [address] Glucose [Mass/Vol] 184 mg/dL High 74-106 [facility] Comment on above: Result Comment: Fast ing Glucose result greater than or equal to 126 mg/dL suggests DIABETES MELLITUS per A.D.A. criteria. Performed By: #### L 500.4050, L500.4100, [id number] #### [facility] [address] [place], [address] Potassium [Moles/Vol] 3.6 mmol/L Normal 3.5-5.1 [facility] Comment on above: Performed By: #### L [id number], [id number], [id number] #### [facility] [address] [place], [address] Sodium [Moles/Vol] 137 mmol/L Normal 136-145 [facility] Comment on above: Performed By: #### L 500.4050, [id number], [id number] #### [facility] [address] [place], [address] T PROT 7.8 g/dL Normal 6.4-8.2 [facility] Comment on above: Performed By: #### L 500.4050, [id number], [id number] #### [facility] [address] [place], [address] Urea nitrogen [Mass/Vol] 25 mg/dL High 06-18 [facility] Comment on above: Performed By: #### L 500.4050, [id number], [id number] #### [facility] [address] [place], [address] Hemoglobin A1con 08-19-2024 HbA1c (Bld) [Mass fraction] 7.1 % High 3.8-5.6 [facility] Comment on above: Result Comment: Norm al < 5.7 % Prediabetic 5.7 - 6.4 % Diabetic >or= 6.5 % Please note range changes. Performed By: #### L 500.4050, L500.4100, [id number] #### [facility] [address] [place], [address] Lipid Profileon 08-19-2024 Cholesterol [Mass/Vol] 170 mg/dL Normal 200 [facility] Comment on above: Result Comment: <200 mg/dL Desirable 200-240 mg/dL Borderline >240 mg/dL High Risk Performed By: #### L 500.4050, L500.4100, [id number] #### [facility] [address] [place], [address] Cholesterol in HDL [Mass/Vol] 43 mg/dL Normal [facility] Comment on above: Result Comment: The drugs N-Acetylcysteine and Metamizole may falsely depress this assay. Reference Range HDL <40 mg/dL Low HDL Cholesterol HDL >or= 60 mg/dL High HDL Cholesterol Performed By: #### L 500.4050, L500.4100, [id number] #### [facility] [address] [place], [address] Cholesterol in LDL [Mass/Vol] 76 mg/dL Normal 0-130 [facility] Comment on above: Performed By: #### L [id number], L500.4100, [id number] #### [facility] [address] [place], [address] Cholesterol in VLDL [Mass/Vol] 51 mg/dL High 5-40 [facility] Comment on above: Performed By: #### L [id number], L500.4100, [id number] #### [facility] [address] [place], [address] Triglyceride [Mass/Vol] 253 mg/dL High [facility] Comment on above: Result Comment: The drugs N-Acetylcysteine and Metamizole may falsely depress this assay. Serum Triglycerides Reference Interval Normal <150 mg/dL Borderline high 150 - 199 mg/dL High 200 - 499 mg/dL Very High > or = 500 mg/dL Performed By: #### L 500.4050, L500.4100, [id number] #### [facility] [address] [place], [address] Laboratory - Chemistry and C hemistry - challengeon 02-24-2024 Bilirubin Ql (U) Negative [facility] Glucose Ql (U) Negative [facility] Ketones Ql (U) Large (80+) [facility] pH (U) 5.0 [pH] [facility] Specific gravity (U) [Rel density] 1.025 [facility] Urobilinogen (U) [Mass/Vol] 1 mg/dL [facility] - Hematology and Cell countson 02-24-2024 Hemoglobin Ql (U) Hemolyzed [facility] - Specimen inform ationon 02-24-2024 Clarity (U) Hazy [facility] Color (U) DARK YELLOW [facility] - Urinalysison Nitrite Ql (U) Negative [facility] Protein Ql (U) 1+ [facility] No Panel Informationon 02-23 Urine Leukocytes Positive [facility] Urine Non-Hemolyzed Blood Large [facility] Basophil percentageOrdered B y: Rafi Moraes on 02-19-2024 Chloride [Moles/Vol] 102 mmol/L 98-107 [facility] Glucose [Mass/Vol] 177 mg/dL 74-106 [facility] Comment on above: Fasting Glucose resu lt greater than or equal to 126 mg/dL suggests DIABETES MELLITUS per A.D.A. criteria. Potassium [Moles/Vol] 3.3 mmol/L 3.5-5.1 [facility] Sodium [Moles/Vol] 141 mmol/L 136-145 [facility] Laboratory - Chemistry and C hemistry - challengeOrdered By: Rafi Moraes on 02-19-2024 CO2 [Moles/Vol] 28.0 mmol/L 21.0-32.0 [facility] Urea nitrogen/Creatinine [Mass ratio] 17.6 mg/mg - [facility] No Panel InformationOrdered By: Rafi Moraes on 02-19-2024 Estimated GFR (MDRD) Amer 51 mL/min >60 [facility] Comment on above: GFR Calc Estimated GFR (MDRD) Non-Af Amer 42 mL/min >60 [facility] Comment on above: Non- GFR Calc Serum or plasma calcium laurita urement (mass/volume)Ordered By: Rafi Moraes on 02-19-2024 Calcium [Mass/Vol] 9.4 mg/dL 8.5-10.1 [facility] Serum or plasma creatinine m easurement (mass/volume)Ordered By: Rafi Moraes on 02-19-2024 Creatinine [Mass/Vol] 1.31 mg/dL 0.55-1.02 [facility] Comment on above: The validity of the calculated GFR & GFRAA in patients over 70 years has not been determined. Clinical correlation is essential. Serum or plasma urea nitroge n measurement (mass/volume)Ordered By: Rafi Moraes on 02-19-2024 Urea nitrogen [Mass/Vol] 23 mg/dL 7-18 [facility] Thin prep Papanicolaou smear with manual screeningOrdered By: Rafi Moraes on 02-19-2024 Thin prep Papanicolaou smear with manual screening 11 5-15 [facility] Basophil percentageOrdered B y: Ashu Edmond on 01-18-2024 Basophil percentage 25-50 SEEN /hpf 0-5 [facility] Bilirubin Test strip Ql (U)O rdered By: Ashu Edmond on 01-18-2024 Bilirubin Ql (U) 1 mg/dL Negative [facility] Comment on above: COLOR OF URINE MAY A FFECT DIPSTICK RESULTS. Culture, urineOrdered By: Catherine Edmond on 01-18-2024 Bacteria identified Cx Nom (U) Klebsiella pneumoniae sp pneum [facility] Hyaline casts LM.LPF (Urine sed) [#/Area]Ordered By: Ashu Edmond on 01-18-2024 Hyaline casts (Urine sed) [#/Area] 0 /[LPF] 0-5 [facility] Ketones Test strip Ql (U)Ord ered By: Ashu Edmond on 01-18-2024 Ketones Ql (U) 5 mg/dl Negative [facility] Mucus LM Ql (Urine sed)Order ed By: Ashu Edmond on 01-18-2024 Mucus Ql (Urine sed) 0 SEEN /hpf [facility] Nitrite Test strip Ql (U)Ord ered By: Ashu Edmond on 01-18-2024 Nitrite Ql (U) Negative Negative [facility] No Panel InformationOrdered By: Ashu Edmond on 01-18-2024 Urine RBC 5-10 SEEN /hpf 0-5 [facility] Protein Test strip Ql (U)Ord ered By: Ashu Edmond on 01-18-2024 Protein Ql (U) 100 mg/dl Negative [facility] Squamous epithelial cells de tection in urine sediment by light microscopyOrdered By: Ashu Edmond on 01-18-2024 Epithelial cells.squamous LM Ql (Urine sed) 0-5 SEEN /hpf 5-10 [facility] Urine blood detectionOrdered By: Ashu Edmond on 01-18-2024 RBC Ql (U) 150 /ul Negative [facility] Urine clarityOrdered By: Ashu Edmond on 01-18-2024 Clarity (U) Cloudy Clear [facility] Urine color determinationOrd ered By: Ashu Edmond on 01-18-2024 Color (U) Yellow Yellow [facility] Urine glucose detectionOrder ed By: Ashu Edmond on 01-18-2024 Glucose Ql (U) Normal mg/dl Normal [facility] Urine leukocyte esterase det ection by dipstickOrdered By: Ashu Edmond on 01-18-2024 Leukocyte esterase Test strip Ql (U) 500 /ul Negative [facility] Urine pHOrdered By: Ashu valderrama on 01-18-2024 pH (U) 5.0 [pH] 5.0 - 8.0 [facility] Urine sediment bacteria coun t by microscopy (number/high power field)Ordered By: Ashu Edmond on 01-18-2024 Bacteria LM.HPF (Urine sed) [#/Area] RARE /hpf None Seen [facility] Urine specific gravity measu rementOrdered By: Ashu Edmond on 01-18-2024 Specific gravity (U) [Rel density] 1.025 1.002-1.030 [facility] Urine urobilinogen measureme ntOrdered By: Ashu Edmond on 01-18-2024 Urobilinogen Ql (U) 1 mg/dl Normal [facility] Basophil percentageOrdered B y: Andrew Garcia on 12-13-2023 Basophil percentage 10-25 SEEN /hpf 0-5 [facility] Bilirubin Test strip Ql (U)O rdered By: Andrew Garcia on 12-13-2023 Bilirubin Ql (U) Negative Negative [facility] Culture, urineOrdered By: Lee Garcia on 12-13-2023 Bacteria identified Cx Nom (U) Escherichia coli [facility] Bacteria identified Cx Nom (U) Escherichia coli [facility] Ketones Test strip Ql (U)Ord ered By: Andrew Garcia on 12-13-2023 Ketones Ql (U) Negative Negative [facility] Mucus LM Ql (Urine sed)Order ed By: Andrew Garcia on 12-13-2023 Mucus Ql (Urine sed) 0 SEEN /hpf [facility] Nitrite Test strip Ql (U)Ord ered By: Andrew Garcia on 12-13-2023 Nitrite Ql (U) Negative Negative [facility] Protein Test strip Ql (U)Ord ered By: Andrew Garcia on 12-13-2023 Protein Ql (U) 15 mg/dl Negative [facility] Squamous epithelial cells de tection in urine sediment by light microscopyOrdered By: Andrew Garcia on 12-13-2023 Epithelial cells.squamous LM Ql (Urine sed) 0-5 SEEN /hpf 5-10 [facility] Urine blood detectionOrdered By: Andrew Garcia on 12-13-2023 RBC Ql (U) 10 /ul Negative [facility] RBC Ql (U) 0 SEEN /hpf 0-5 [facility] Urine clarityOrdered By: Shannon Garcia on 12-13-2023 Clarity (U) Clear Clear [facility] Urine color determinationOrd ered By: Andrew Garcia on 12-13-2023 Color (U) Yellow Yellow [facility] Urine glucose detectionOrder ed By: Andrew Garcia on 12-13-2023 Glucose Ql (U) Normal mg/dl Normal [facility] Urine leukocyte esterase det ection by dipstickOrdered By: Andrew Garcia on 12-13-2023 Leukocyte esterase Test strip Ql (U) 500 /ul Negative [facility] Urine pHOrdered By: Andrew worrell on 12-13-2023 pH (U) 5.0 [pH] 5.0 - 8.0 [facility] Urine sediment bacteria coun t by microscopy (number/high power field)Ordered By: Andrew Garcia on 12-13-2023 Bacteria LM.HPF (Urine sed) [#/Area] 0 /[HPF] None Seen [facility] Urine specific gravity measu rementOrdered By: Andrew Garcia on 12-13-2023 Specific gravity (U) [Rel density] 1.020 1.002-1.030 [facility] Urobilinogen Auto test strip Ql (U)Ordered By: Andrew Garcia on 12-13-2023 Urobilinogen Ql (U) Normal mg/dl Normal [facility] Basophil percentageOrdered B y: Rafi Moraes on 12-05-2023 Chloride [Moles/Vol] 104 mmol/L 98-107 [facility] Cholesterol [Mass/Vol] 147 mg/dL <200 [facility] Comment on above: <200 mg/dL Desirable 200-240 mg/dL Borderline >240 mg/dL High Risk Glucose [Mass/Vol] 129 mg/dL 74-106 [facility] Comment on above: Fasting Glucose resu lt greater than or equal to 126 mg/dL suggests DIABETES MELLITUS per A.D.A. criteria. Potassium [Moles/Vol] 3.7 mmol/L 3.5-5.1 [facility] Sodium [Moles/Vol] 138 mmol/L 136-145 [facility] Triglyceride [Mass/Vol] 242 mg/dL <199 [facility] Comment on above: The drugs N-Acetylcy steine and Metamizole may falsely depress this assay.Serum Triglycerides Reference Interval Normal <150 mg/dL Borderline high 150 - 199 mg/dL High 200 - 499 mg/dL Very High > or = 500 mg/dL Laboratory - Chemistry and C hemistry - challengeOrdered By: Rafi Moraes on 12-05-2023 CO2 [Moles/Vol] 24.0 mmol/L 21.0-32.0 [facility] Urea nitrogen/Creatinine [Mass ratio] 20.5 mg/mg 10-20 [facility] No Panel InformationOrdered By: Rafi Moraes on 12-05-2023 Estimated GFR (MDRD) Amer 52 mL/min >60 [facility] Comment on above: GFR Calc Estimated GFR (MDRD) Non-Af Amer 43 mL/min >60 [facility] Comment on above: Non- GFR Calc Thyroid Stimulating Hormone (TSH) 1.34 uIU/mL 0.358-3.74 [facility] Serum or plasma calcium laurita urement (mass/volume)Ordered By: Rafi Moraes on 12-05-2023 Calcium [Mass/Vol] 9.1 mg/dL 8.5-10.1 [facility] Serum or plasma cholesterol in HDL measurement (mass/volume)Ordered By: Rafi Moraes on 12-05-2023 Cholesterol in HDL [Mass/Vol] 42 mg/dL >40 [facility] Comment on above: The drugs N-Acetylcy steine and Metamizole may falsely depress this assay. Reference Range HDL <40 mg/dL Low HDL Cholesterol HDL >or= 60 mg/dL High HDL Cholesterol Serum or plasma cholesterol in VLDL measurement (mass/volume)Ordered By: Rafi Moraes on 12-05-2023 Cholesterol in VLDL [Mass/Vol] 48 mg/dL 5-40 [facility] Serum or plasma creatinine m easurement (mass/volume)Ordered By: Rafi Moraes on 12-05-2023 Creatinine [Mass/Vol] 1.27 mg/dL 0.55-1.02 [facility] Comment on above: The validity of the calculated GFR & GFRAA in patients over 70 years has not been determined. Clinical correlation is essential. Serum or plasma low density lipoprotein (LDL) cholesterol measurement (mass/volume)Ordered By: Rafi Moraes on 12-05-2023 Cholesterol in LDL [Mass/Vol] 57 mg/dL 0-130 [facility] Serum or plasma urea nitroge n measurement (mass/volume)Ordered By: Rafi Moraes on 12-05-2023 Urea nitrogen [Mass/Vol] 26 mg/dL 7-18 [facility] Thin prep Papanicolaou smear with manual screeningOrdered By: Rafi Moraes on 12-05-2023 Thin prep Papanicolaou smear with manual screening 10 5-15 [facility] Basophil percentageOrdered B y: Victoriano Kunz on 11-12-2023 Basophil percentage >100 SEEN /hpf 0-5 [facility] Bilirubin Test strip Ql (U)O rdered By: Vicotriano Kunz on 11-12-2023 Bilirubin Ql (U) 1 mg/dL Negative [facility] Comment on above: COLOR OF URINE MAY A FFECT DIPSTICK RESULTS. Culture, urineOrdered By: St jonny Kunz on 11-12-2023 Bacteria identified Cx Nom (U) Escherichia coli [facility] Bacteria identified Cx Nom (U) Streptococcus agalactiae (B) [facility] Bacteria identified Cx Nom (U) Escherichia coli [facility] Bacteria identified Cx Nom (U) Streptococcus agalactiae (B) [facility] Ketones Test strip Ql (U)Ord ered By: Victoriano Kunz on 11-12-2023 Ketones Ql (U) Negative Negative [facility] Mucus LM Ql (Urine sed)Order ed By: Victoriano Kunz on 11-12-2023 Mucus Ql (Urine sed) 0 SEEN /hpf [facility] Nitrite Test strip Ql (U)Ord ered By: Victoriano Kunz on 11-12-2023 Nitrite Ql (U) Positive Negative [facility] Protein Test strip Ql (U)Ord ered By: Victoriano Kunz on 11-12-2023 Protein Ql (U) 30 mg/dl Negative [facility] Squamous epithelial cells de tection in urine sediment by light microscopyOrdered By: Victoriano Kunz on 11-12-2023 Epithelial cells.squamous LM Ql (Urine sed) 0-5 SEEN /hpf 5-10 [facility] Urine blood detectionOrdered By: Victoriano Kunz on 11-12-2023 RBC Ql (U) 25 /ul Negative [facility] RBC Ql (U) 0-5 SEEN /hpf 0-5 [facility] Urine clarityOrdered By: Jerome Kunz on 11-12-2023 Clarity (U) Cloudy Clear [facility] Urine color determinationOrd ered By: Victoriano Kunz on 11-12-2023 Color (U) Yellow Yellow [facility] Urine glucose detectionOrder ed By: Victoriano Kunz on 11-12-2023 Glucose Ql (U) Normal mg/dl Normal [facility] Urine leukocyte esterase det ection by dipstickOrdered By: Victoriano Kunz on 11-12-2023 Leukocyte esterase Test strip Ql (U) 500 /ul Negative [facility] Urine pHOrdered By: Victoriano sutton on 11-12-2023 pH (U) 5.0 [pH] 5.0 - 8.0 [facility] Urine sediment bacteria coun t by microscopy (number/high power field)Ordered By: Victoriano Kunz on 11-12-2023 Bacteria LM.HPF (Urine sed) [#/Area] 1 /[HPF] None Seen [facility] Urine specific gravity measu rementOrdered By: Victoriano Kunz on 11-12-2023 Specific gravity (U) [Rel density] 1.020 1.002-1.030 [facility] Urobilinogen Auto test strip Ql (U)Ordered By: Victoriano Kunz on 11-12-2023 Urobilinogen Ql (U) 4 mg/dl Normal [facility] Basophil percentageOrdered B y: Darren Delaney on 10-04-2023 Basophil percentage >100 SEEN /hpf 0-5 [facility] Bilirubin Test strip Ql (U)O rdered By: Darren Delaney on 10-04-2023 Bilirubin Ql (U) 1 mg/dL Negative [facility] Comment on above: COLOR OF URINE MAY A FFECT DIPSTICK RESULTS. Hyaline casts LM.LPF (Urine sed) [#/Area]Ordered By: Darren Delaney on 10-04-2023 Hyaline casts (Urine sed) [#/Area] 0 /[LPF] 0-5 [facility] Ketones Test strip Ql (U)Ord ered By: Darren Delaney on 10-04-2023 Ketones Ql (U) 5 mg/dl Negative [facility] Mucus LM Ql (Urine sed)Order ed By: Darren Delaney on 10-04-2023 Mucus Ql (Urine sed) 0 SEEN /hpf [facility] Nitrite Test strip Ql (U)Ord ered By: Darren Delaney on 10-04-2023 Nitrite Ql (U) Negative Negative [facility] Protein Test strip Ql (U)Ord ered By: Darren Delaney on 10-04-2023 Protein Ql (U) 100 mg/dl Negative [facility] Squamous epithelial cells de tection in urine sediment by light microscopyOrdered By: Darren Delaney on 10-04-2023 Epithelial cells.squamous LM Ql (Urine sed) 0-5 SEEN /hpf 5-10 [facility] Urine blood detectionOrdered By: Darren Delaney on 10-04-2023 RBC Ql (U) 250 /ul Negative [facility] [facility] RBC Ql (U) 25-50 SEEN /hpf 0-5 [facility] Urine clarityOrdered By: Joe Delaney on 10-04-2023 Clarity (U) Turbid Clear [facility] Urine color determinationOrd ered By: Darren Delaney on 10-04-2023 Color (U) Yellow Yellow [facility] Urine glucose detectionOrder ed By: Darren Delaney on 10-04-2023 Glucose Ql (U) Normal mg/dl Normal [facility] Urine leukocyte esterase det ection by dipstickOrdered By: Darren Delaney on 10-04-2023 Leukocyte esterase Test strip Ql (U) 500 /ul Negative [facility] Urine pHOrdered By: Darren Delaney on 10-04-2023 pH (U) 5.0 [pH] 5.0 - 8.0 [facility] Urine sediment bacteria coun t by microscopy (number/high power field)Ordered By: Darren Delaney on 10-04-2023 Bacteria LM.HPF (Urine sed) [#/Area] 0 /[HPF] None Seen [facility] Urine sediment renal epithel ial cell count by microscopy (number/high power field)Ordered By: Darren Delaney on 10-04-2023 Epithelial cells.renal LM.HPF (Urine sed) [#/Area] 0 /[HPF] 0-5 [facility] Urine specific gravity measu rementOrdered By: Darren Delaney on 10-04-2023 Specific gravity (U) [Rel density] 1.030 1.002-1.030 [facility] Urobilinogen Auto test strip Ql (U)Ordered By: Darren Delaney on 10-04-2023 Urobilinogen Ql (U) 1 mg/dl Normal [facility] Basophil percentageOrdered B y: Rafi Moraes on 08-19-2023 Chloride [Moles/Vol] 103 mmol/L 98-107 [facility] Cholesterol [Mass/Vol] 186 mg/dL <200 [facility] Comment on above: <200 mg/dL Desirable 200-240 mg/dL Borderline >240 mg/dL High Risk Glucose [Mass/Vol] 162 mg/dL 74-106 [facility] Comment on above: Fasting Glucose resu lt greater than or equal to 126 mg/dL suggests DIABETES MELLITUS per A.D.A. criteria. Potassium [Moles/Vol] 3.8 mmol/L 3.5-5.1 [facility] Sodium [Moles/Vol] 138 mmol/L 136-145 [facility] Triglyceride [Mass/Vol] 305 mg/dL <199 [facility] Comment on above: The drugs N-Acetylcy steine and Metamizole may falsely depress this assay.Serum Triglycerides Reference Interval Normal <150 mg/dL Borderline high 150 - 199 mg/dL High 200 - 499 mg/dL Very High > or = 500 mg/dL Laboratory - Chemistry and C hemistry - challengeOrdered By: Rafi Moraes on 08-19-2023 CO2 [Moles/Vol] 25.0 mmol/L 21.0-32.0 [facility] Urea nitrogen/Creatinine [Mass ratio] 16.1 mg/mg 10-20 [facility] No Panel InformationOrdered By: Rafi Moraes on 08-19-2023 Estimated GFR (MDRD) Amer 48 mL/min >60 [facility] Comment on above: GFR Calc Estimated GFR (MDRD) Non-Af Amer 40 mL/min >60 [facility] Comment on above: Non- GFR Calc Serum or plasma calcium laurita urement (mass/volume)Ordered By: Rafi Moraes on 08-19-2023 Calcium [Mass/Vol] 9.2 mg/dL 8.5-10.1 [facility] Serum or plasma cholesterol in HDL measurement (mass/volume)Ordered By: Rafi Moraes on 08-19-2023 Cholesterol in HDL [Mass/Vol] 39 mg/dL >40 [facility] Comment on above: The drugs N-Acetylcy steine and Metamizole may falsely depress this assay. Reference Range HDL <40 mg/dL Low HDL Cholesterol HDL >or= 60 mg/dL High HDL Cholesterol Serum or plasma cholesterol in VLDL measurement (mass/volume)Ordered By: Rafi Moraes on 08-19-2023 Cholesterol in VLDL [Mass/Vol] 61 mg/dL 5-40 [facility] Serum or plasma creatinine m easurement (mass/volume)Ordered By: Rafi Moraes on 08-19-2023 Creatinine [Mass/Vol] 1.37 mg/dL 0.55-1.02 [facility] Comment on above: The validity of the calculated GFR & GFRAA in patients over 70 years has not been determined. Clinical correlation is essential. Serum or plasma low density lipoprotein (LDL) cholesterol measurement (mass/volume)Ordered By: Rafi Moraes on 08-19-2023 Cholesterol in LDL [Mass/Vol] 86 mg/dL 0-130 [facility] Serum or plasma urea nitroge n measurement (mass/volume)Ordered By: Rafi Moraes on 08-19-2023 Urea nitrogen [Mass/Vol] 22 mg/dL 7-18 [facility] Thin prep Papanicolaou smear with manual screeningOrdered By: Rafi Moraes on 08-19-2023 Thin prep Papanicolaou smear with manual screening 10 5-15 [facility] Culture, urineOrdered By: Brett Lewis on 05-22-2023 Bacteria identified Cx Nom (U) Escherichia coli [facility] Amorphous sediment detection in urine sediment by light microscopyOrdered By: Abdirahman Lewis on 05-20-2023 Amorphous sediment LM Ql (Urine sed) 1+ URATE [facility] Basophil percentageOrdered B y: Abdirahman Lewis on 05-20-2023 Basophil percentage 50-100 SEEN /hpf 0-5 [facility] Bilirubin Test strip Ql (U)O rdered By: Abdirahman Lewis on 05-20-2023 Bilirubin Ql (U) Negative Negative [facility] Culture, urineOrdered By: Brett Lewis on 05-20-2023 Bacteria identified Cx Nom (U) Escherichia coli [facility] Ketones Test strip Ql (U)Ord ered By: Abdirahman Lewis on 05-20-2023 Ketones Ql (U) 5 mg/dl Negative [facility] Laboratory - Chemistry and C hemistry - challengeon 05-20-2023 Bilirubin Ql (U) Negative [facility] Glucose Ql (U) Negative [facility] Ketones Ql (U) Negative [facility] pH (U) 6.0 [pH] [facility] Specific gravity (U) [Rel density] 1.025 [facility] Urobilinogen (U) [Mass/Vol] Negative [facility] Laboratory - Hematology and Cell countson 05-20-2023 Hemoglobin Ql (U) Hemolyzed [facility] Laboratory - Specimen inform ationon 05-20-2023 Clarity (U) Clear [facility] Color (U) YELLOW [facility] Laboratory - Urinalysison Nitrite Ql (U) Negative [facility] Protein Ql (U) Trace [facility] Mucus LM Ql (Urine sed)Order ed By: Abdirahman Lewis on 05-20-2023 Mucus Ql (Urine sed) 0 SEEN /hpf [facility] Nitrite Test strip Ql (U)Ord ered By: Abdirahman Lewis on 06-19-2023 Nitrite Ql (U) Negative Negative [facility] No Panel Informationon 05-20 Urine Leukocytes Positive [facility] Urine Non-Hemolyzed Blood Moderate [facility] Protein Test strip Ql (U)Ord ered By: Abdirahman Lewis on 05-20-2023 Protein Ql (U) 30 mg/dl Negative [facility] Squamous epithelial cells de tection in urine sediment by light microscopyOrdered By: Abdirahman Lewis on 05-20-2023 Epithelial cells.squamous LM Ql (Urine sed) 5-10 SEEN /hpf 5-10 [facility] Urine blood detectionOrdered By: Abdirahman Lewis on 05-20-2023 RBC Ql (U) 25 /ul Negative [facility] RBC Ql (U) 5-10 SEEN /hpf 0-5 [facility] Urine clarityOrdered By: Jorge Lewis on 05-20-2023 Clarity (U) Sl Cldy Clear [facility] Comment on above: Previous reported re sult: Clear Edited by: KWASI on 05/20/23:1848 Urine color determinationOrd ered By: Abdirahman Lewis on 05-20-2023 Color (U) Yellow Yellow [facility] Urine glucose detectionOrder ed By: Abdirahman Lewis on 05-20-2023 Glucose Ql (U) 50 mg/dl Normal [facility] Urine leukocyte esterase det ection by dipstickOrdered By: Abdirahman Lewis on 05-20-2023 Leukocyte esterase Test strip Ql (U) 500 /ul Negative [facility] Urine pHOrdered By: Abdirahman Lewis on 05-20-2023 pH (U) 5.0 [pH] 5.0 - 8.0 [facility] Urine sediment bacteria coun t by microscopy (number/high power field)Ordered By: Abdirahman Lewis on 05-20-2023 Bacteria LM.HPF (Urine sed) [#/Area] RARE /hpf None Seen [facility] Urine specific gravity measu rementOrdered By: Abdirahman Lewis on 05-20-2023 Specific gravity (U) [Rel density] 1.025 1.002-1.030 [facility] Urobilinogen Auto test strip Ql (U)Ordered By: Abdirahman Lewis on 05-20-2023 Urobilinogen Ql (U) Normal mg/dl Normal [facility] Basophil percentageOrdered B y: Dr. Moraes on 02-20-2023 Bilirubin [Mass/Vol] 0.40 mg/dL 0.20-1.00 [facility] Comment on above: For patients on eltr ombopag therapy, use of Dimension [place] TBIL is not recommended. Chloride [Moles/Vol] 103 mmol/L 98-107 [facility] Cholesterol [Mass/Vol] 156 mg/dL <200 [facility] Comment on above: <200 mg/dL Desirable 200-240 mg/dL Borderline >240 mg/dL High Risk Glucose [Mass/Vol] 164 mg/dL 74-106 [facility] Comment on above: Fasting Glucose resu lt greater than or equal to 126 mg/dL suggests DIABETES MELLITUS per A.D.A. criteria. Potassium [Moles/Vol] 4.0 mmol/L 3.5-5.1 [facility] Protein [Mass/Vol] 7.6 g/dL 6.4-8.2 [facility] Sodium [Moles/Vol] 138 mmol/L 136-145 [facility] Triglyceride [Mass/Vol] 202 mg/dL <199 [facility] Comment on above: The drugs N-Acetylcy steine and Metamizole may falsely depress this assay.Serum Triglycerides Reference Interval Normal <150 mg/dL Borderline high 150 - 199 mg/dL High 200 - 499 mg/dL Very High > or = 500 mg/dL Laboratory - Chemistry and C hemistry - challengeOrdered By: Dr. Moraes on 02-20-2023 ALP [Catalytic activity/Vol] 63 U/L 45-117 [facility] ALT [Catalytic activity/Vol] 23 U/L 13-56 [facility] CO2 [Moles/Vol] 24.0 mmol/L 21.0-32.0 [facility] Globulin (S) [Mass/Vol] 4.0 g/dL 2.2-4.2 [facility] Urea nitrogen/Creatinine [Mass ratio] 19.7 mg/mg 10-20 [facility] No Panel InformationOrdered By: Dr. Moraes on 02-20-2023 Estimated GFR (MDRD) Amer 48 mL/min >60 [facility] Comment on above: GFR Calc Estimated GFR (MDRD) Non-Af Amer 40 mL/min >60 [facility] Comment on above: Non- GFR Calc Serum or plasma albumin laurita urement (mass/volume)Ordered By: Dr. Moraes on 02-20-2023 Albumin [Mass/Vol] 3.6 g/dL 3.2-5.0 [facility] Serum or plasma albumin/glob ulin mass ratioOrdered By: Dr. Moraes on 02-20-2023 Albumin/Globulin [Mass ratio] 0.9 {ratio} 0.9-2.4 [facility] Serum or plasma calcium laurita urement (mass/volume)Ordered By: Dr. Moraes on 02-20-2023 Calcium [Mass/Vol] 9.4 mg/dL 8.5-10.1 [facility] Serum or plasma cholesterol in HDL measurement (mass/volume)Ordered By: Dr. Moraes on 02-20-2023 Cholesterol in HDL [Mass/Vol] 41 mg/dL >40 [facility] Comment on above: The drugs N-Acetylcy steine and Metamizole may falsely depress this assay. Reference Range HDL <40 mg/dL Low HDL Cholesterol HDL >or= 60 mg/dL High HDL Cholesterol Serum or plasma cholesterol in VLDL measurement (mass/volume)Ordered By: Dr. Moraes on 02-20-2023 Cholesterol in VLDL [Mass/Vol] 40 mg/dL 5-40 [facility] Serum or plasma creatinine m easurement (mass/volume)Ordered By: Dr. Moraes on 02-20-2023 Creatinine [Mass/Vol] 1.37 mg/dL 0.55-1.02 [facility] Comment on above: The validity of the calculated GFR & GFRAA in patients over 70 years has not been determined. Clinical correlation is essential. Serum or plasma low density lipoprotein (LDL) cholesterol measurement (mass/volume)Ordered By: Dr. Moraes on 02-20-2023 Cholesterol in LDL [Mass/Vol] 75 mg/dL 0-130 [facility] Serum or plasma urea nitroge n measurement (mass/volume)Ordered By: Dr. Moraes on 02-20-2023 Urea nitrogen [Mass/Vol] 27 mg/dL 7-18 [facility] Thin prep Papanicolaou smear with manual screeningOrdered By: Dr. Moraes on 02-20-2023 Thin prep Papanicolaou smear with manual screening 11 U/L 15-37 [facility] Thin prep Papanicolaou smear with manual screening 11 5-15 [facility] Culture, urineOrdered By: Dr Dafne Sanchez on 01-25-2023 Bacteria identified Cx Nom (U) Presumptive E. coli [facility] Basophil percentageOrdered B y: Dr. Sanchez on 01-23-2023 Basophil percentage 25-50 SEEN /hpf 0-5 [facility] Bilirubin Test strip Ql (U)O rdered By: ED PROVIDER on 01-23-2023 Bilirubin Ql (U) Negative Negative [facility] Ketones Test strip Ql (U)Ord ered By: ED PROVIDER on 01-23-2023 Ketones Ql (U) Negative Negative [facility] Mucus LM Ql (Urine sed)Order ed By: Dr. Sanchez on 01-23-2023 Mucus Ql (Urine sed) 0 SEEN /hpf [facility] Nitrite Test strip Ql (U)Ord ered By: ED PROVIDER on 01-23-2023 Nitrite Ql (U) Negative Negative [facility] Protein Test strip Ql (U)Ord ered By: ED PROVIDER on 01-23-2023 Protein Ql (U) 30 mg/dl Negative [facility] Squamous epithelial cells de tection in urine sediment by light microscopyOrdered By: Dr. Sanchez on 01-23-2023 Epithelial cells.squamous LM Ql (Urine sed) 0-5 SEEN /hpf 5-10 [facility] Urine blood detectionOrdered By: ED PROVIDER on 01-23-2023 RBC Ql (U) 10 /ul Negative [facility] Urine blood detectionOrdered By: Dr. Sanchez on 01-23-2023 RBC Ql (U) 0 SEEN /hpf 0-5 [facility] Urine clarityOrdered By: ED PROVIDER on 01-23-2023 Clarity (U) Sl. Cloudy Clear [facility] Urine color determinationOrd ered By: ED PROVIDER on 01-23-2023 Color (U) Yellow Yellow [facility] Urine glucose detectionOrder ed By: ED PROVIDER on 01-23-2023 Glucose Ql (U) Normal mg/dl Normal [facility] Urine leukocyte esterase det ection by dipstickOrdered By: ED PROVIDER on 01-23-2023 Leukocyte esterase Test strip Ql (U) 500 /ul Negative [facility] Urine pHOrdered By: ED PROVI DAVID on 01-23-2023 pH (U) 6.0 [pH] 5.0 - 8.0 [facility] Urine sediment bacteria coun t by microscopy (number/high power field)Ordered By: Dr. Sanchez on 01-23-2023 Bacteria LM.HPF (Urine sed) [#/Area] RARE /hpf None Seen [facility] Urine specific gravity measu rementOrdered By: ED PROVIDER on 01-23-2023 Specific gravity (U) [Rel density] 1.020 1.002-1.030 [facility] Urobilinogen Auto test strip Ql (U)Ordered By: ED PROVIDER on 01-23-2023 Urobilinogen Ql (U) 1 mg/dl Normal [facility] Basophil percentageon 2021 Chloride [Moles/Vol] 104 mmol/L 98-107 [facility] Work Phone: Glucose [Mass/Vol] 124 mg/dL 74-106 [facility] Work Phone: Comment on above: Fasting Glucose resu lt from 100 to 125 mg/dL suggests IMPAIRED HOMEOSTASIS per A.D.A. criteria. Potassium [Moles/Vol] 3.6 mmol/L 3.5-5.1 [facility] Work Phone: Sodium [Moles/Vol] 139 mmol/L 136-145 [facility] Work Phone: Laboratory - Chemistry and C hemistry - challengeon 08-22-2022 CO2 [Moles/Vol] 26.0 mmol/L 21.0-32.0 [facility] Work Phone: Urea nitrogen/Creatinine [Mass ratio] 16.7 mg/mg 10-20 [facility] Work Phone: No Panel Informationon 08-22 Estimated GFR (MDRD) Amer 46 mL/min >60 [facility] Work Phone: Comment on above: GFR Calc Estimated GFR (MDRD) Non-Af Amer 38 mL/min >60 [facility] Work Phone: Comment on above: Non- GFR Calc Serum or plasma calcium laurita urement (mass/volume)on 08-22-2022 Calcium [Mass/Vol] 9.2 mg/dL 8.5-10.1 [facility] Work Phone: Serum or plasma creatinine m easurement (mass/volume)on 08-22-2022 Creatinine [Mass/Vol] 1.44 mg/dL 0.55-1.02 [facility] Work Phone: Comment on above: The validity of the calculated GFR & GFRAA in patients over 70 years has not been determined. Clinical correlation is essential. Serum or plasma urea nitroge n measurement (mass/volume)on 08-22-2022 Urea nitrogen [Mass/Vol] 24 mg/dL 7-18 [facility] Work Phone: Thin prep Papanicolaou smear with manual screeningon 08-22-2022 Thin prep Papanicolaou smear with manual screening 9 5-15 [facility] Work Phone: Basophil percentageon 2021 Basophil percentage 10-25 SEEN /hpf 0-5 [facility] Work Phone: Bilirubin Test strip Ql (U)o n 07-21-2022 Bilirubin Ql (U) Negative Negative [facility] Work Phone: Ketones Test strip Ql (U)on 07-21-2022 Ketones Ql (U) Negative Negative [facility] Work Phone: Mucus LM Ql (Urine sed)on Mucus Ql (Urine sed) 0 SEEN /hpf [facility] Work Phone: Nitrite Test strip Ql (U)on 07-21-2022 Nitrite Ql (U) Negative Negative [facility] Work Phone: Protein Test strip Ql (U)on 07-21-2022 Protein Ql (U) 15 mg/dl Negative [facility] Work Phone: Squamous epithelial cells de tection in urine sediment by light microscopyon 07-21-2022 Epithelial cells.squamous LM Ql (Urine sed) 0-5 SEEN /hpf 5-10 [facility] Work Phone: Urine blood detectionon --2021 RBC Ql (U) 10 /ul Negative [facility] Work Phone: RBC Ql (U) 0-5 SEEN /hpf 0-5 [facility] Work Phone: Urine clarityon 07-21-2022 Clarity (U) Sl. Cloudy Clear [facility] Work Phone: Urine color determinationon 07-21-2022 Color (U) Yellow Yellow [facility] Work Phone: Urine glucose detectionon Glucose Ql (U) Normal mg/dl Normal [facility] Work Phone: Urine leukocyte esterase det ection by dipstickon 07-21-2022 Leukocyte esterase Test strip Ql (U) 500 /ul Negative [facility] Work Phone: Urine pHon 07-21-2022 pH (U) 5.0 [pH] 5.0 - 8.0 [facility] Work Phone: Urine sediment bacteria coun t by microscopy (number/high power field)on 07-21-2022 Bacteria LM.HPF (Urine sed) [#/Area] 0 /[HPF] None Seen [facility] Work Phone: Urine specific gravity measu rementon 07-21-2022 Specific gravity (U) [Rel density] 1.020 1.002-1.030 [facility] Work Phone: Urobilinogen Auto test strip Ql (U)on 07-21-2022 Urobilinogen Ql (U) Normal mg/dl Normal [facility] Work Phone: Culture, urine Bacteria identified Cx Nom (U) Positive [facility] Work Phone: Vital Signs Date Time Vital Sign Value Performing Clinician Faci lity 02-24-2024 16:39-0400 Body temperature 97.8 [degF] Dr. Rafi Moraes Work Phone: [facility] 02-24-2024 16:39-0400 Diastolic blood pressure 72 mm[Hg] Dr. Rafi Moraes Work Phone: [facility] 02-24-2024 16:39-0400 Heart rate 86 /min Dr. Rafi Moraes Work Phone: [facility] 02-24-2024 16:39-0400 Respiratory rate 18 /min Dr. Rafi Moraes Work Phone: [facility] 02-24-2024 16:39-0400 SaO2% (BldA) [Mass fraction] 96 % Dr. Rafi Moraes Work Phone: [facility] 02-24-2024 16:39-0400 Systolic blood pressure 120 mm[Hg] Dr. Rafi Moraes Work Phone: [facility] 01-18-2024 17:42-0500 Body temperature 97.5 [degF] Dr. Rafi Moraes Work Phone: [facility] 01-18-2024 17:42-0500 Diastolic blood pressure 81 mm[Hg] Dr. Rafi Moraes Work Phone: [facility] 01-18-2024 17:42-0500 Heart rate 73 /min Dr. Rafi Moraes Work Phone: [facility] 01-18-2024 17:42-0500 Respiratory rate 16 /min Dr. Rafi Moraes Work Phone: [facility] 01-18-2024 17:42-0500 Systolic blood pressure 131 mm[Hg] Dr. Rafi Moraes Work Phone: [facility] 01-18-2024 17:37-0500 Body height 167.[address] Rafi Moraes Work Phone: [facility] 01-18-2024 17:37-0500 Body mass index (BMI) [Ratio] 32.3 kg/m2 Dr. Rafi Moraes Work Phone: [facility] 01-18-2024 17:37-0500 Body weight [address] Rafi Moraes Work Phone: [facility] 12-13-2023 21:32-0500 Body height 167.[address] Rafi Moraes Work Phone: [facility] 12-13-2023 21:32-0500 Body mass index (BMI) [Ratio] 32.1 kg/m2 Dr. Rafi Moraes Work Phone: [facility] 12-13-2023 21:32-0500 Body weight 90.[address] Rafi Moraes Work Phone: [facility] 12-13-2023 21:02-0500 Body temperature 96.3 [degF] Dr. Rafi Moraes Work Phone: [facility] 12-13-2023 21:02-0500 Diastolic blood pressure 75 mm[Hg] Dr. Rafi Moraes Work Phone: [facility] 12-13-2023 21:02-0500 Heart rate 76 /min Dr. Rafi Moraes Work Phone: [facility] 12-13-2023 21:02-0500 Respiratory rate 18 /min Dr. Rafi Moraes Work Phone: [facility] 12-13-2023 21:02-0500 SaO2% (BldA) [Mass fraction] 95 % Dr. Rafi Moraes Work Phone: [facility] 12-13-2023 21:02-0500 Systolic blood pressure 152 mm[Hg] Dr. Rafi Moraes Work Phone: [facility] 11-12-2023 11:03-0500 Body height 167.[address] Rafi Moraes Work Phone: [facility] 11-12-2023 11:03-0500 Body mass index (BMI) [Ratio] 32.1 kg/m2 Dr. Rafi Moraes Work Phone: [facility] 11-12-2023 11:03-0500 Body temperature 97.8 [degF] Dr. Rafi Moraes Work Phone: [facility] 11-12-2023 11:03-0500 Body weight 90.[address] Rafi Moraes Work Phone: [facility] 11-12-2023 11:03-0500 Diastolic blood pressure 71 mm[Hg] Dr. Rafi Moraes Work Phone: [facility] 11-12-2023 11:03-0500 Heart rate 75 /min Dr. Rafi Moraes Work Phone: [facility] 11-12-2023 11:03-0500 Respiratory rate 16 /min Dr. Rafi Moraes Work Phone: [facility] 11-12-2023 11:03-0500 SaO2% (BldA) [Mass fraction] 93 % Dr. Rafi Moraes Work Phone: [facility] 11-12-2023 11:03-0500 Systolic blood pressure 128 mm[Hg] Dr. Rafi Moraes Work Phone: [facility] [place] 10-04-2023 19:20-0400 Diastolic blood pressure 78 mm[Hg] [facility] [place] 10-04-2023 19:20-0400 Heart rate 68 /min [facility] 10-04-2023 19:20-0400 Respiratory rate 16 /min [facility] 10-04-2023 19:20-0400 SaO2% (BldA) [Mass fraction] 95 % [facility] [place] 10-04-2023 19:20-0400 Systolic blood pressure 126 mm[Hg] [facility] [place] 10-04-2023 18:05-0400 Body height 168 cm [facility] 10-04-2023 18:05-0400 Body mass index (BMI) [Ratio] 32 kg/m2 [facility] [place] 10-04-2023 18:05-0400 Body temperature 97 [degF] [facility] 10-04-2023 18:05-0400 Body weight 90.31 kg [facility] 07-03-2023 17:55-0400 Body mass index (BMI) [Ratio] 31.4 kg/m2 Dr. Rafi Moraes Work Phone: [facility] [place] 07-03-2023 17:55-0400 Body weight 88.[address] Rafi Moraes Work Phone: [facility] [place] 07-03-2023 17:05-0400 Body height 167.[address] Rafi Moraes Work Phone: [facility] [place] 07-03-2023 17:05-0400 Body temperature 97.4 [degF] Dr. Rafi Moraes Work Phone: [facility] [place] 07-03-2023 17:05-0400 Diastolic blood pressure 73 mm[Hg] Dr. Rafi Moraes Work Phone: [facility] [place] 07-03-2023 17:05-0400 Heart rate 60 /min Dr. Rafi Moraes Work Phone: [facility] [place] 07-03-2023 17:05-0400 Respiratory rate 16 /min Dr. Rafi Moraes Work Phone: [facility] [place] 07-03-2023 17:05-0400 SaO2% (BldA) [Mass fraction] 96 % Dr. Rafi Moraes Work Phone: [facility] [place] 07-03-2023 17:05-0400 Systolic blood pressure 150 mm[Hg] Dr. Rafi Moraes Work Phone: [facility] [place] 05-20-2023 15:21-0400 Body height 165.[address] Rafi Moraes Work Phone: [facility] [place] 05-20-2023 15:21-0400 Body mass index (BMI) [Ratio] 33.9 kg/m2 Dr. Rafi Moraes Work Phone: [facility] [place] 05-20-2023 15:21-0400 Body temperature 97.2 [degF] Dr. Rafi Moraes Work Phone: [facility] [place] 05-20-2023 15:21-0400 Body weight 92.[address] Rafi Moraes Work Phone: [facility] [place] 05-20-2023 15:21-0400 Diastolic blood pressure 88 mm[Hg] Dr. Rafi Moraes Work Phone: [facility] [place] 05-20-2023 15:21-0400 Heart rate 105 /min Dr. Rafi Moraes Work Phone: [facility] [place] 05-20-2023 15:21-0400 Respiratory rate 16 /min Dr. Rafi Moraes Work Phone: [facility] [place] 05-20-2023 15:21-0400 SaO2% (BldA) [Mass fraction] 96 % Dr. Rafi Moraes Work Phone: [facility] [place] 05-20-2023 15:21-0400 Systolic blood pressure 186 mm[Hg] Dr. Rafi Moraes Work Phone: [facility] [place] 01-23-2023 20:16-0500 Body height 167.64 cm [facility] 01-23-2023 20:16-0500 Body mass index (BMI) [Ratio] 33.6 kg/m2 [facility] [place] 01-23-2023 20:16-0500 Body temperature 98.3 [degF] [facility] 01-23-2023 20:16-0500 Body weight 94.57 kg [facility] 01-23-2023 20:16-0500 Diastolic blood pressure 95 mm[Hg] [facility] [place] 01-23-2023 20:16-0500 Heart rate 80 /min [facility] 01-23-2023 20:16-0500 Respiratory rate 16 /min [facility] 01-23-2023 20:16-0500 SaO2% (BldA) [Mass fraction] 98 % [facility] [place] 01-23-2023 20:16-0500 Systolic blood pressure 148 mm[Hg] [facility] [place] 07-21-2022 19:43-0400 Body height 167.64 cm [facility] Work Phone: 07-21-2022 19:43-0400 Body mass index (BMI) [Ratio] 36.3 kg/m2 [facility] [place] Work Phone: 07-21-2022 19:43-0400 Body temperature 96.9 [degF] [facility] Work Phone: 07-21-2022 19:43-0400 Body weight 102.05 kg [facility] Work Phone: 07-21-2022 19:43-0400 Diastolic blood pressure 91 mm[Hg] [facility] [place] Work Phone: 07-21-2022 19:43-0400 Heart rate 73 /min [facility] Work Phone: 07-21-2022 19:43-0400 Respiratory rate 17 /min [facility] Work Phone: 07-21-2022 19:43-0400 SaO2% (BldA) [Mass fraction] 97 % [facility] [place] Work Phone: 07-21-2022 19:43-0400 Systolic blood pressure 178 mm[Hg] [facility] [place] Work Phone: Encounters Encounter Date Encounter Type Care Provider Facility Start: 03-02-2025 Encounter for genera l adult medical examination without abnormal findings Rafi Moraes [facility] [place] Start: 02-25-2025 End: 02-25-[address] Rafi Moraes MD Work Phone: [facility] [place] Work Phone: Start: 02-25-2025 End: 02-25-[address] Rafi Moraes MD -Laboratory, [facility] Start: 02-25-2025 End: 02-25-2025 ambulatory Rafi Moraes Facility:[facility] [place] Start: 02-15-2025 End: 02-15-[address] Rafi Moraes MD Work Phone: [facility] [place] Work Phone: Start: 02-15-2025 End: 02-15-[address] Rafi Moraes MD -Laboratory, [facility] Start: 02-15-2025 End: 02-15-2025 ambulatory Rafi Moraes Facility:[facility] [place] Start: 11-18-2024 End: 11-18-[address] Rafi Moraes MD -Laboratory, [facility] Start: 11-18-2024 End: 11-18-2024 ambulatory Rafi Moraes Facility:[facility] [place] Start: 08-19-2024 End: 08-19-2024 ambulatory Rafi Moraes Facility:[facility] [place] Start: 02-24-2024 End: 02-24-[address] Rafi Moraes Work Phone: [facility] [place] Work Phone: Start: 02-24-2024 End: 02-24-[address] [facility] Work Phone: Start: 02-24-2024 End: 02-24-[address] Rafi Moraes Work Phone: [facility] Work Phone: Start: 02-19-2024 End: 02-19-[address] Rafi Moraes Work Phone: [facility] [place] Work Phone: Start: 02-19-2024 End: 02-19-[address] Rafi Moraes Work Phone: [facility] [place] Start: 01-18-2024 End: 01-18-2024 Emergency department patient visit Dr. Rafi Moraes Work Phone: [facility] [place] Work Phone: Start: 12-13-2023 End: 12-13-2023 Emergency department patient visit Dr. Rafi Moraes Work Phone: [facility] [place] Work Phone: Start: 12-05-2023 End: 12-05-[address] Rafi Moraes Work Phone: [facility] [place] Work Phone: Start: 12-05-2023 End: 12-05-[address] Rafi Moraes Work Phone: [facility] Start: 11-12-2023 End: 11-12-[address] Rafi Moraes Work Phone: [facility] [place] Work Phone: Start: 11-12-2023 End: 11-12-[address] Rafi Moraes Work Phone: [facility] Work Phone: Start: 11-12-2023 End: 11-12-[address] Rafi Moraes Work Phone: [facility] Work Phone: Start: 10-04-2023 End: 10-04-2023 Emergency department patient visit [facility] [place] Work Phone: Start: 08-19-2023 End: 08-19-2023 Patient encounter procedure [facility] Start: 07-03-2023 End: 07-03-2023 Emergency department patient visit Dr. Rafi Moraes Work Phone: [facility] [place] Work Phone: Start: 05-20-2023 End: 05-20-[address] Rafi Moraes Work Phone: [facility] [place] Work Phone: Start: 05-20-2023 End: 05-20-[address] [facility] Start: 05-20-2023 End: 05-20-[address] [facility] Start: 04-26-2023 End: 04-26-2023 ambulatory [facility] [place] Work Phone: Start: 04-26-2023 End: 04-26-2023 [facility] [place] Start: 02-20-2023 End: 02-20-2023 ambulatory [facility] [place] Work Phone: Start: 02-20-2023 End: 02-20-2023 [facility] Start: 01-23-2023 End: 01-23-2023 Emergency department patient visit [facility] [place] Start: 08-22-2022 End: 08-22-2022 ambulatory [facility] [place] Work Phone: Start: 08-22-2022 End: 08-22-2022 [facility] Start: 07-26-2022 End: 07-26-2022 ambulatory [facility] [place] Work Phone: Start: 07-26-2022 End: 07-26-2022 [facility] Start: 07-21-2022 End: 07-21-2022 Emergency department patient visit [facility] [place] Procedures Date Procedure Procedure Detail Performing Clinician Start: 02-24-[address] Rafi Moraes Work Phone: Start: 01-18-[address] Rafi Moraes Work Phone: Start: 12-13-[address] Rafi Moraes Work Phone: Start: 11-12-[address] Rafi Moraes Work Phone: Start: 07-03-2023 Plain x-ray of wrist Dr Danfe Moraes Work Phone: Start: 07-03-2023 X-ray of chest posteroanterior view Dr. Rafi Moraes Work Phone: Start: 05-20-[address] Rafi Moraes Work Phone: Start: 04-26-2023 Radiologic examinati on of knee Urine culture Urine culture Urine culture Dr. Rafi Gann en Work Phone: Plan of Treatment Date Care Activity Detail Author Start: 01-18-2024 End: 01-18-2024 [facility] Start: 01-18-2024 Bacteria identified in Urine by Culture [facility] [place] Start: 12-13-2023 End: 12-13-2023 [facility] Start: 12-13-2023 Bacteria identified in Urine by Culture Urine Culture [facility] [place] Start: 10-04-2023 [facility] Start: 01-23-2023 [facility] Bacteria identified in Urine by Culture Urine Culture [facility] [place] Patient Education [facility] Work Phone: Patient referral [facility] Work Phone: Urinalysis complete panel - Urine [facility] Payers Date Payer Category Payer Medicare [id number] 2024 Self-pay [id number] Unknown [id number] Unknown [id number] Unknown [id number] Unknown [id number] Social History Date Type Detail Facility Start: 07-21-2022 End: 02-24-2024 Tobacco smoking status NHIS Unknown if ever smoked [facility] [place] Start: 08-17-2021 None [facility] Start: 08-17-2021 Non-smoker [facility] Start: 1945 Sex Assigned At Female [facility] Start: 04-19-2024 Tobacco smoking stat us NHIS Ex-smoker (finding) [facility] [place] Start: 02-24-2025 End: 03-02-2025 Sex Female (finding) [facility] [place] Discharge summary 01-18-2024 Note Date & Type Note Facility 01-18-2024 Discharge summary Note Date/Time January 18, 2024 5:49pm [facility] Medical Records Department [address] [place] [address] Emergency Department Summary 01/18/24 MR#: [id number] Acct: [id number] Name: CECY WILLAMS Rep #:[id number] : 1945 78 From: Ashu Edmond MD [...] Clarity Cloudy Urine pH 5.0 Ur Specific [place] 1.025 Urine Protein 100 H Urine Glucose [...] your Primary Care Provider. Call [facility] ([phone]) or report to the closest Emergency Room. Call 911 if necessary. 01/18/241823 <Electronically signed by Ashu Edmond MD> Cosigner Signature (if applicable): CC: Dr. Rafi Moraes MD ~ Signed [facility] [place] Work Phone: Discharge summary 01-23-2023 Note Date & Type Note Facility 01-23-2023 Discharge summary Note Date/Time January 23, 2023 9:15pm [facility] Medical Records Department [address] [place] [address] Emergency Department Summary 01/23/23 MR#: [id number] Acct: [id number] Name: CECY WILLAMS Rep #:[id number] : 1945 77 From: Hadley Sanchez MD [...] the symptoms of her usual bladder infections. [facility] Medical History Allergic rhinitis Benign essential HTN [...] Sl. Cloudy Urine pH 6.0 Ur Specific [place] 1.020 Urine Protein 30 H Urine Glucose [...] your Primary Care Provider. Call [facility] ([phone]) or report to the closest Emergency Room. Call 911 if necessary. 01/23/232147 <Electronically signed by Hadley Sanchez MD> Cosigner Signature (if applicable): CC: Dr. Rafi Moraes MD ~ Signed [facility] [place] Work Phone: Evaluation note Note Date & Type Note Facility Evaluation note No assessment information availa ble [facility] [place] Work Phone: Evaluation note Note Date & Type Note Facility Evaluation note Diagnosis Onset Date Acute urinary tract infection acute [facility] [place] Work Phone: Hospital Discharge instructions Note Date & Type Note Facility Hospital Discharge instructions Additional Instructions Urine positive for infection. Take antibiotic and Pyridium as prescribed. Follow-up with your doctor. [facility] [place] Work Phone: Reason for referral (narrative) Note Date & Type Note Facility Reason for referral (narrative) No reason for referral information available [facility] [place] Work Phone: Chief Complaint and Reason for [...] Will No July 21 8:18pm Power of [employer] No July 21 8:18pm Advance Directive Response Recorded Date/ Time Advance Directives No November 10:49pm Living Will No January 23, 8:58pm Power of [employer] No January 23, 2023 8:58pm Advance Directive Response Recorded Date/ Time Advance Directives No November 11:49pm Living Will No January 23 023 9:58pm Power of [employer] No January 23, 2023 9:58pm Advance Directive Response Recorded Date/ Time Advance Directives No May 20 2:33pm Living Will No May 20, 2023 2:33pm Power of [employer] No May 20 2:33pm Advance Directive Response Recorded Date/ Time Advance Directives No May 20 2:33pm Living Will No July 03, 2023 5:56pm Power of [employer] No July 03 5:56pm Advance Directive Response Recorded Date/ Time Advance Directives No May 20 2:33pm Living Will No October 04 6:19pm Power of [employer] No October 04, 2023 6:19pm Advance Directive Response Recorded Date/ Time Advance Directives No May 20 1:33pm Living Will No October 04 5:19pm Power of [employer] No October 04, 2023 5:19pm Advance Directive Response Recorded Date/ Time Advance Directives No May 20 1:33pm Living Will No December 13 9:11pm Power of [employer] No December 13, 2023 9:11pm Advance Directive Response Recorded Date/ Time Advance Directives No May 20 1:33pm Living Will No January 18 024 5:51pm Power of [employer] No January 18, 2024 5:51pm Advance Directive Response Recorded Date/ Time Advance Directives No May 20 2:33pm Living Will No January 18 024 6:51pm Power of [employer] No January 18, 2024 6:51pm Advance Directive [...] Active Member Role Status Dates Dr. Rafi Moares MD Family Provider Active Dr. Rafi Moraes [...] Inactive Member Role Status Dates Dr. Rafi Moreas MD Primary Care Provider Active Dr. Andrew [...] section and content) DATE CREATED AUTHOR 05/23/2025 [facility] FOR RECORDS PERTAINING TO PATIENTS WHO ARE [...] BE BASED ON THE PRIMARY CLINICAL RECORDS. [email or web address] provides no warranty or guarantee of the accuracy or completeness of information in this document.
== END | disposition home or self-care (01) ==
LOC: MFPLAB 10:42
PROVIDERS: PCP Family Medicine; Referring Provider Family Medicine; Visit Provider Family Medicine
DX: R06.02 Shortness of breath (principal); E11.9 Type 2 diabetes mellitus without complications
CPT/HCPCS: 36415; 80048; 83036; 85027

== ENCOUNTER → 2025-09-09 | Outpatient (CLI) | payer MEDICARE, SELFPAY ==
--- NOTE | 2025-09-09 10:57 | RAD_ITS ---
PROCEDURE: CERV SPINE OBL/FLEX/EXT COMP 09/09/2025 REASON FOR EXAM: CERVICALGIA TECHNIQUE: Procedure Code: RADSPCFE Modality: DX Procedure: CERV SPINE OBL/FLEX/EXT COMP COMPARISON: None FINDINGS: Vertebrae: Diffuse osteopenia of the osseous structures is noted. The vertebral body heights are within normal limits. There is no spondylolysis. There is no osteolytic or osteoblastic lesion seen. The dens and lateral masses are somewhat obscured by normal overlapping anatomical structures. Visualized components appear unremarkable. Mild spondylosis is noted. Disc spaces: Intervertebral disc spaces are well-maintained with the exception of slight narrowing of the C6-C7 and C7-T1 disc spaces. Alignment: There is approximately 2 mm of anterolisthesis of C4 in relationship to C5. There is no instability on the flexion or extension views. The remaining vertebral body alignments are within normal limits. soft tissues: There is no prevertebral soft tissue swelling. Paravertebral soft tissue structures are unremarkable. RAD/Cerv Spine Obl/Flex/Ext Comp IMPRESSION: Diffuse osteopenia cervical spine Mild spondylosis cervical spine Degenerative disc disease seen involving the C6-C7 and C7-T1 levels. Disclaimer: Reading Location: [id number]
[2025-09-09 12:26] LABS: Hematocrit 39.4 % (37-47); Hemoglobin 13.1 g/dL (12.0-15.0); Immature Granulocytes Count 0.030 X10^3/uL (0.0-0.0); Mean Corp Hgb Conc 33.2 g/dL (32-36); Mean Corpuscular Volume 87.8 fL (81-99); Mean Platelet Vol. 12.5 fl (6.2-12.0); NRBC Flagged by Analyzer 0 % (0-5); Platelet Count 313 K/mm3 (150-450); RBC Distribution Width CV 15.4 % (11.6-14.6); RBC Distribution Width SD 48.7 fl (35.1-43.9); Red Blood Count 4.49 M/mm3 (4.2-5.4); White Blood Count 8.3 K/mm3 (4.4-11.0)
[2025-09-09 15:07] LABS: Anion Gap 14 (5-15); BUN 31 mg/dL (4-19); BUN/Creat Ratio 16.9 RATIO (10-20); Calcium,Total 9.6 mg/dL (7.6-11.0); Carbon Dioxide 23.4 mmol/L (21.0-32.0); Chloride 101 mmol/L (98-108); Cholesterol 137 mg/dL (<=200); Glucose 154 mg/dL (70-99); Low Density Lipoprotein Calc. 60 mg/dL; Potassium 4.2 mmol/L (3.3-5.1); Triglycerides 168 mg/dL; Very Low Density Lipoprotein 34 mg/dL (5-40); cholesterol:hdl ratio screen 3.12
[2025-09-09 15:28] LABS: Pro- Brain NATRIURETIC PEPTIDE 411 pg/mL (<=1800)
== END | disposition home or self-care (01) ==
LOC: MTLAB 10:55
PROVIDERS: PCP Family Medicine; Referring Provider Family Medicine; Visit Provider Family Medicine
DX: E11.9 Type 2 diabetes mellitus without complications (principal); R06.02 Shortness of breath; M54.2 Cervicalgia
CPT/HCPCS: 36415; 72052; 80048; 80061; 83880; 84443; 85025

== ENCOUNTER → 2025-09-14 | Outpatient (CLI) | payer MEDICARE, SELFPAY ==
--- NOTE | 2025-09-14 17:19 | STRESSREP ---
Stress Test Report Pharmacologic myocardial perfusion stress test. 80-year-old lady with a history of shortness of breath. Resting EKG demonstrates normal sinus rhythm with a rate of 68 bpm. Resting blood pressure is 142/76 mmHg. 0.4 mg of regadenoson was infused per usual protocol followed by rapid intravenous saline flush injection. Continuous EKG monitoring was performed. The maximum heart rate was 89 bpm which was 63% of max impacted heart rate the maximum workload was 1 metabolic equivalent. At rest there were no ST or T wave changes noted to suggest ischemia and at peak infusion nonspecific ST changes were noted which did not meet the criteria for ischemia. No clinical angina is noted. The final blood pressure was 138/70 mmHg. Myocardial perfusion protocol. 14.4 mCi of technetium 99m sestamibi was injected at rest. 0.4 mg of regadenoson was infused per usual protocol. At peak infusion 44.5 mCi of technetium 99m sestamibi was injected stress images were obtained stress and rest images were reconstructed and compared in the short axis vertical long and horizontal long axis. Gated images were also obtained. Perfusion SPECT analysis: Review of the stress images demonstrate normal uptake of tracer noted in all areas of the myocardium. The resting images similar demonstrated normal uptake of tracer noted in all areas of the myocardium. No areas of reversibility are noted to suggest ischemia and no previous infarct is noted. Gated SPECT analysis: The gated ejection fraction is 85% Conclusion: Normal pharmacologic myocardial perfusion stress test. Preserved ejection fraction.
== END | disposition home or self-care (01) ==
LOC: CVS 07:09
PROVIDERS: PCP Family Medicine; Referring Provider Family Medicine; Visit Provider Family Medicine
DX: R06.02 Shortness of breath (principal)
CPT/HCPCS: 78452; 93017; A9500; A4216; J2785